=== PATIENT | female | born 1950 | race African-American/Black ===

== ENCOUNTER 2018-02-08 18:41 | Emergency (ER) | payer MEDICARE ==
[~2018-02-08] VITALS: Ht 170.2 cm; Wt 106.0 kg
[~2018-02-08 18:41] MED LIST: BENA40TA3 MT; CALCIUM PO; CLON0.1T PO; HYDR25TA PO; HYDR50TA54 PO; IRON PO; LANTUSUD SUBCUT; METO1TAB41 PO; NASOI BOTHNSTRLS; NIFE90TA2 PO; POTASSIUM
[2018-02-08 20:05] VITALS: BP 148/70
== END 2018-02-08 23:05 | disposition left against medical advice (07) ==
LOC: ER 23:05
DX: R51 Headache (principal); E11.9 Type 2 diabetes mellitus without complications; I10 Essential (primary) hypertension; Z88.5 Allergy status to narcotic agent; Z90.710 Acquired absence of both cervix and uterus
CPT/HCPCS: 99281

== ENCOUNTER 2018-09-16 15:19 | Inpatient (IN) | payer MEDICARE ==
[~2018-09-16] VITALS: Ht 170.2 cm; Wt 110.2 kg
[~2018-09-16 15:19] MED LIST changes: -BENA40TA3 MT; +BENA40TA9 MT
[2018-09-16] MEDS ORDERED: ALBUTEROL (0.083%) 2.5MG/3ML NEB HHN STA (16:26)
[2018-09-16 17:01] LABS: BASOPHILS % 0.3 % (0.0-2.0); CHLORIDE 96 mEq/L (98-107); HEMATOCRIT. 31.9 % (36.0-48.0); HEMOGLOBIN. 10.9 g/dL (12.0-16.0); LYMPHOCYTES % 10.6 % (20.0-50.0); MEAN CORPUSCULAR HEMOGLOBIN 32.4 pg (28.0-32.0); MEAN CORPUSCULAR VOLUME 95.2 fL (81.0-99.0); MEAN PLATELET VOLUME 9.2 fl (7.4-10.4); MONOCYTES % 8.3 % (2.0-8.0); NEUTROPHILS % 79.8 % (40.0-76.0); PLATELET 215 x1000/uL (130-400); RED BLOOD CELL COUNT 3.35 mill/uL (4.2-5.4); RED CELL DISTRIBUTION WIDTH 14.6 % (11.6-14.6)
[2018-09-16 17:12] LABS: INR 1.1; PARTIAL THROMBOPLASTIN TIME 29.1 sec (23.4-31.0); PROTHROMBIN TIME 10.9 sec (9.1-11.1)
[2018-09-16] MEDS ORDERED: KCL 10MEQ/50ML PREMIX 50 ML IV ONE (17:30)
[2018-09-16] MEDS ORDERED: POTASSIUM CHLORIDE 20MEQ TABLET SR PO ONE (17:30)
[2018-09-17 01:16] VITALS: BP 118/77
[2018-09-17 01:20] VITALS: BP 118/77
[2018-09-17 04:00] VITALS: BP 146/63
[2018-09-17] MEDS ORDERED: ACETAMINOPHEN 325MG TABLET PO PRN (05:45)
[2018-09-17] MEDS ORDERED: NIFEDIPINE XL 90MG TAB PO SCH ×2 (05:45→06:00)
[2018-09-17] MEDS ORDERED: ENOXAPARIN 40MG/0.4ML SYR SUBCUT SCH (05:45)
[2018-09-17] MEDS ORDERED: DOCUSATE SODIUM 100MG CAPSULE PO PRN (05:45)
[2018-09-17] MEDS ORDERED: SODIUM CHLORIDE 0.9% INJ 3ML FLUSH IVF SCH (06:00)
[2018-09-17] MEDS ORDERED: METOPROLOL TARTRATE 100MG TABLET PO SCH (06:00)
[2018-09-17] MEDS ORDERED: POTASSIUM CHLORIDE 20MEQ TABLET SR PO SCH ×2 (06:00→10:00)
[2018-09-17 07:08] LABS: BASOPHILS % 0.2 % (0.0-2.0); HEMATOCRIT. 31.5 % (36.0-48.0); HEMOGLOBIN. 10.7 g/dL (12.0-16.0); LYMPHOCYTES % 12.3 % (20.0-50.0); MEAN CORPUSCULAR HEMOGLOBIN 32.4 pg (28.0-32.0); MEAN CORPUSCULAR VOLUME 95.3 fL (81.0-99.0); MONOCYTES % 10.7 % (2.0-8.0); NEUTROPHILS % 74.8 % (40.0-76.0); PLATELET 215 x1000/uL (130-400); RED CELL DISTRIBUTION WIDTH 14.7 % (11.6-14.6)
[2018-09-17 08:00] VITALS: BP 106/53
[2018-09-17] MEDS ORDERED: LEVO50TA MT (08:13)
[2018-09-17 08:45] LABS: CHLORIDE 100 mEq/L (98-107)
[2018-09-17 08:51] LABS: TOTAL IRON BINDING CAPACITY 258 ug/dL (250-450)
[2018-09-17] MEDS ORDERED: BENAZEPRIL 10MG TABLET PO SCH (09:00)
[2018-09-17] MEDS ORDERED: ENOXAPARIN 30MG/0.3ML SYR SUBCUT SCH (09:00)
[2018-09-17] MEDS ORDERED: AZITHROMYCIN 500 MG TABLET PO SCH (09:00)
[2018-09-17 09:57] LABS: FOLIC ACID (FOLATE) SERUM >20 ng/mL ng/mL (>5.38)
[2018-09-17 10:08] LABS: VITAMIN B12 SERUM 686 pg/mL (211-911)
[2018-09-17 11:01] VITALS: BP 106/53
[2018-09-17] MEDS ORDERED: INSULIN GLARGINE UD 100 UNITS/ML SYR SUBCUT SCH (21:00)
[2018-09-19 14:09] LABS: FERRITIN 851 ng/mL (10-291)
== END 2018-09-17 11:50 | disposition home or self-care (01) | DRG 202 ==
LOC: ER 15:19 → 8WST 17:34
PROVIDERS: ADMIT Internal Medicine; ATTEND Internal Medicine
DX: J20.9 Acute bronchitis, unspecified (principal); J18.0 Bronchopneumonia, unspecified organism; E11.9 Type 2 diabetes mellitus without complications; E83.42 Hypomagnesemia; E87.6 Hypokalemia; I10 Essential (primary) hypertension; Z79.4 Long term (current) use of insulin; Z90.710 Acquired absence of both cervix and uterus; Z79.84 Long term (current) use of oral hypoglycemic drugs; Z88.5 Allergy status to narcotic agent
CPT/HCPCS: 36415; 71045; 80048; 82607; 82728; 82746; 82962; 83540; 83550; 83735; 83880; 84443; 84484; 87804; 93005; 94640; 96374; 99285; J1650; J1815; J3480; J7611

== ENCOUNTER 2019-06-23 03:59 | Emergency (ER) | payer MEDICARE ==
[~2019-06-23] VITALS: Ht 170.2 cm; Wt 108.0 kg
[~2019-06-23 03:59] MED LIST changes: +LEVO50TA MT
[2019-06-23 05:34] LABS: CHLORIDE 105 mEq/L (98-107)
[2019-06-23 05:37] LABS: BASOPHILS % 0.4 % (0.0-2.0); EOSINOPHILS % 3.1 % (0.0-5.0); HEMATOCRIT. 31.5 % (36.0-48.0); HEMOGLOBIN. 10.4 g/dL (12.0-16.0); LYMPHOCYTES % 13.2 % (20.0-50.0); MEAN CORPUSCULAR HEMOGLOBIN 31.4 pg (28.0-32.0); MEAN CORPUSCULAR VOLUME 95.1 fL (81.0-99.0); MEAN PLATELET VOLUME 8.2 fl (7.4-10.4); NEUTROPHILS % 75.3 % (40.0-76.0); PLATELET 238 x1000/uL (130-400); RED BLOOD CELL COUNT 3.32 mill/uL (4.2-5.4); RED CELL DISTRIBUTION WIDTH 15.8 % (11.6-14.6)
[2019-06-23] MEDS ORDERED: AZITHROMYCIN 500 MG in DEXT 5% WATER 250 ML IV SCH (07:15)
[2019-06-23] MEDS ORDERED: CEFTRIAXONE 2 G PREMIX 50 ML IV ONE (07:15)
[2019-06-23 07:27] VITALS: BP 175/80
[2019-06-23] MEDS ORDERED: POTASSIUM CHLORIDE 20MEQ TABLET SR PO ONE (07:45)
== END 2019-06-23 10:07 | disposition home or self-care (01) ==
LOC: ER 03:59
DX: J18.9 Pneumonia, unspecified organism (principal); E11.9 Type 2 diabetes mellitus without complications; I10 Essential (primary) hypertension; Z98.890 Other specified postprocedural states; Z79.4 Long term (current) use of insulin; Z88.5 Allergy status to narcotic agent
CPT/HCPCS: 36415; 71045; 80053; 85025; 96365; 96375; 99284; J0456; J0696; J7060

== ENCOUNTER 2019-06-24 14:02 | Emergency (ER) | payer MEDICARE ==
[~2019-06-24] VITALS: Ht 170.2 cm; Wt 106.0 kg
[2019-06-24] MEDS ORDERED: LACTATED RINGERS 1,000 ML IV STA (15:16)
[2019-06-24 15:28] LABS: BASOPHILS % 0.9 % (0.0-2.0); EOSINOPHILS % 2.3 % (0.0-5.0); HEMATOCRIT. 34.6 % (36.0-48.0); HEMOGLOBIN. 11.7 g/dL (12.0-16.0); LYMPHOCYTES % 18.3 % (20.0-50.0); MEAN CORPUSCULAR HEMOGLOBIN 31.5 pg (28.0-32.0); MEAN CORPUSCULAR VOLUME 93.2 fL (81.0-99.0); MEAN PLATELET VOLUME 8.2 fl (7.4-10.4); MONOCYTES % 9.7 % (2.0-8.0); NEUTROPHILS % 68.8 % (40.0-76.0); PLATELET 254 x1000/uL (130-400); RED BLOOD CELL COUNT 3.71 mill/uL (4.2-5.4); RED CELL DISTRIBUTION WIDTH 15.8 % (11.6-14.6)
[2019-06-24 15:32] LABS: CHLORIDE 101 mEq/L (98-107)
[2019-06-24] MEDS ORDERED: AMOXICILLIN/POTASSIUM CLAVULANATE 875/125MG TAB PO ONE (15:45)
[2019-06-24 17:56] VITALS: BP 150/65
== END 2019-06-24 17:58 | disposition home or self-care (01) ==
LOC: ER 14:21
DX: J18.9 Pneumonia, unspecified organism (principal); R55 Syncope and collapse; I10 Essential (primary) hypertension; E11.9 Type 2 diabetes mellitus without complications; Z88.5 Allergy status to narcotic agent; Z98.890 Other specified postprocedural states; Z79.899 Other long term (current) drug therapy
CPT/HCPCS: 36415; 71045; 80053; 82962; 83605; 83880; 84484; 85025; 93005; 96360; 99284; J7120

== ENCOUNTER 2019-07-02 09:30 | Emergency (ER) | payer MEDICARE ==
[~2019-07-02] VITALS: Ht 170.2 cm; Wt 107.0 kg
[2019-07-02] MEDS ORDERED: SODIUM CHLORIDE 0.9% 1,000 ML IV ONE (10:09)
[2019-07-02] MEDS ORDERED: ACETAMINOPHEN 325MG TABLET PO STA (10:09)
[2019-07-02 10:58] LABS: BASOPHILS % 0.5 % (0.0-2.0); EOSINOPHILS % 3.4 % (0.0-5.0); HEMATOCRIT. 33.8 % (36.0-48.0); HEMOGLOBIN. 11.2 g/dL (12.0-16.0); LYMPHOCYTES % 16.1 % (20.0-50.0); MEAN CORPUSCULAR HEMOGLOBIN 31.2 pg (28.0-32.0); MEAN CORPUSCULAR VOLUME 93.9 fL (81.0-99.0); MEAN PLATELET VOLUME 8.6 fl (7.4-10.4); MONOCYTES % 6.9 % (2.0-8.0); NEUTROPHILS % 73.1 % (40.0-76.0); PLATELET 240 x1000/uL (130-400)
[2019-07-02 11:03] LABS: CHLORIDE 100 mEq/L (98-107)
[2019-07-02] MEDS ORDERED: POTASSIUM CHLORIDE 20MEQ TABLET SR PO ONE (14:15)
[2019-07-02 14:48] VITALS: BP 128/86
== END 2019-07-02 14:49 | disposition home or self-care (01) ==
LOC: ER 09:30
DX: J18.9 Pneumonia, unspecified organism (principal); R05 Cough; E11.9 Type 2 diabetes mellitus without complications; I10 Essential (primary) hypertension; Z88.5 Allergy status to narcotic agent; Z79.4 Long term (current) use of insulin
CPT/HCPCS: 36415; 71045; 80053; 83880; 84484; 85025; 87804; 93005; 99284; J7030

== ENCOUNTER 2019-07-24 06:05 | Emergency (ER) | payer MEDICARE ==
[~2019-07-24] VITALS: Ht 170.2 cm; Wt 106.0 kg
[2019-07-24] MEDS ORDERED: KETOROLAC 30MG/ML VIAL IV STA (07:05)
[2019-07-24] MEDS ORDERED: SODIUM CHLORIDE 0.9% 1,000 ML IV ONE (07:05)
[2019-07-24 07:36] LABS: BASOPHILS % 0.6 % (0.0-2.0); EOSINOPHILS % 2.9 % (0.0-5.0); HEMATOCRIT. 33.4 % (36.0-48.0); HEMOGLOBIN. 11.1 g/dL (12.0-16.0); LYMPHOCYTES % 15.7 % (20.0-50.0); MEAN CORPUSCULAR HEMOGLOBIN 31.1 pg (28.0-32.0); MEAN CORPUSCULAR VOLUME 93.3 fL (81.0-99.0); MEAN PLATELET VOLUME 8.7 fl (7.4-10.4); MONOCYTES % 7.9 % (2.0-8.0); NEUTROPHILS % 72.9 % (40.0-76.0); PLATELET 228 x1000/uL (130-400); RED BLOOD CELL COUNT 3.58 mill/uL (4.2-5.4); RED CELL DISTRIBUTION WIDTH 15.8 % (11.6-14.6)
[2019-07-24 07:39] LABS: CHLORIDE 105 mEq/L (98-107)
[2019-07-24 08:45] VITALS: BP 158/74
== END 2019-07-24 08:47 | disposition home or self-care (01) ==
LOC: ER 06:05
DX: B34.9 Viral infection, unspecified (principal); R91.8 Other nonspecific abnormal finding of lung field; M79.18 Myalgia, other site; E11.9 Type 2 diabetes mellitus without complications; I10 Essential (primary) hypertension; Z79.4 Long term (current) use of insulin; Z79.899 Other long term (current) drug therapy; Z88.5 Allergy status to narcotic agent
CPT/HCPCS: 36415; 71045; 80053; 82962; 85025; 87070; 87430; 87804; 96374; 99284; J1885; J7030

== ENCOUNTER 2019-08-05 04:44 | Emergency (ER) | payer MEDICARE ==
[~2019-08-05] VITALS: Ht 170.2 cm; Wt 108.0 kg
[2019-08-05 06:31] LABS: CHLORIDE 103 mEq/L (98-107)
[2019-08-05 06:32] LABS: BASOPHILS % 1.5 % (0.0-2.0); EOSINOPHILS % 4.6 % (0.0-5.0); HEMATOCRIT. 36.3 % (36.0-48.0); HEMOGLOBIN. 12.2 g/dL (12.0-16.0); LYMPHOCYTES % 16.9 % (20.0-50.0); MEAN CORPUSCULAR HEMOGLOBIN 31.6 pg (28.0-32.0); MEAN PLATELET VOLUME 8.6 fl (7.4-10.4); MONOCYTES % 7.2 % (2.0-8.0); NEUTROPHILS % 69.8 % (40.0-76.0); PLATELET 240 x1000/uL (130-400); RED BLOOD CELL COUNT 3.86 mill/uL (4.2-5.4); RED CELL DISTRIBUTION WIDTH 15.8 % (11.6-14.6)
[2019-08-05 06:35] LABS: PARTIAL THROMBOPLASTIN TIME 24.2 sec (23.4-31.0); PROTHROMBIN TIME 10.2 sec (9.6-11.0)
[2019-08-05] MEDS ORDERED: ONDANSETRON HCL 4MG/2ML INJ IV STA (06:51)
[2019-08-05] MEDS ORDERED: NITROGLYCERIN OINT 1GM/INCH UDPKT TD ONE (07:00)
[2019-08-05] MEDS ORDERED: TRAMADOL 50MG TABLET PO ONE (07:00)
[2019-08-05] MEDS ORDERED: ASPIRIN 81MG TABLET PO ONE (07:00)
[2019-08-05] MEDS ORDERED: MORPHINE SULFATE 2 MG/ML CPJ (NOT FOR IM USE) IV ONE (07:15)
[2019-08-05] MEDS ORDERED: ONDANSETRON HCL 4MG/2ML INJ IV PRN (10:00)
[2019-08-05] MEDS ORDERED: CLONIDINE 0.1MG TABLET PO PRN (10:00)
[2019-08-05] MEDS ORDERED: IPRATROPIUM/ALBUTEROL 0.5-3(2.5)MG/3ML NEB HHN PRN (10:00)
[2019-08-05] MEDS ORDERED: BUDESONIDE 0.5MG/2ML NEB HHN SCH (10:00)
[2019-08-05] MEDS ORDERED: ACETAMINOPHEN 325MG TABLET PO PRN (10:00)
[2019-08-05] MEDS ORDERED: TRAMADOL 50MG TABLET PO PRN (10:00)
[2019-08-05] MEDS ORDERED: POTASSIUM CHLORIDE 20MEQ TABLET SR PO ONE (10:00)
[2019-08-05] MEDS ORDERED: DEXTROSE 50% WATER 50ML SYRINGE IV PRN (10:00)
[2019-08-05 12:42] VITALS: BP 138/58
[2019-08-05] MEDS ORDERED: BLOOD SUGAR DIAGNOSTIC STRIP TEST SCH (13:00)
[2019-08-05] MEDS ORDERED: INSULIN LISPRO 100 UNITS/ML SUBCUT SCH (13:20)
[2019-08-05] MEDS ORDERED: IOHEXOL-350 100 ML BOTTLE ONE (13:38)
== END 2019-08-05 13:20 | disposition short-term general hospital (02) ==
LOC: ER 04:44 → EDBEDREQ 09:04 → EDBEDREQTM 09:04 → ER 13:20 → CANBEDREQ 15:18
DX: R07.89 Other chest pain (principal); R91.8 Other nonspecific abnormal finding of lung field; E11.9 Type 2 diabetes mellitus without complications; I10 Essential (primary) hypertension; Z88.5 Allergy status to narcotic agent; Z79.899 Other long term (current) drug therapy
CPT/HCPCS: 36415; 71045; 71275; 80053; 83880; 84484; 85025; 85610; 85730; 93005; 93970; 96374; 96375; 99285; J2270; J2405; Q9967

== ENCOUNTER 2020-05-21 02:44 | Inpatient (IN) | payer MEDICARE ==
[~2020-05-21] VITALS: Ht 170.2 cm; Wt 113.4 kg
[2020-05-21] MEDS ORDERED: NITROGLYCERIN OINT 1GM/INCH UDPKT TD ONE (03:30)
[2020-05-21] MEDS ORDERED: FUROSEMIDE 40MG/4ML VIAL IV ONE (03:30)
[2020-05-21] MEDS ORDERED: CEFTRIAXONE 1 G PREMIX 50 ML IV ONE (03:45)
[2020-05-21] MEDS ORDERED: AZITHROMYCIN 500 MG in DEXT 5% WATER 250 ML IV ONE (03:45)
[2020-05-21 03:53] LABS: BASOPHILS % 0.5 % (0.0-2.0); HEMATOCRIT. 33.4 % (36.0-48.0); HEMOGLOBIN. 10.9 g/dL (12.0-16.0); LYMPHOCYTES % 11.9 % (20.0-50.0); MEAN CORPUSCULAR HEMOGLOBIN 30.5 pg (28.0-32.0); MEAN CORPUSCULAR VOLUME 93.8 fL (81.0-99.0); MEAN PLATELET VOLUME 9.1 fl (7.4-10.4); MONOCYTES % 4.5 % (2.0-8.0); NEUTROPHILS % 80.1 % (40.0-76.0); PLATELET 222 x1000/uL (130-400); RED BLOOD CELL COUNT 3.56 mill/uL (4.2-5.4); RED CELL DISTRIBUTION WIDTH 16.5 % (11.6-14.6)
[2020-05-21 03:56] LABS: CHLORIDE 108 mEq/L (98-107)
[2020-05-21 03:58] LABS: PROTHROMBIN TIME 10.9 sec (9.6-11.0)
[2020-05-21 06:36] LABS: CLARITY URINE CLEAR (CLEAR); COLOR URINE YELLOW (YELLOW); KETONES URINE NEGATIVE (NEGATIVE); LEUKOCYTE ESTERASE URINE NEGATIVE (NEGATIVE); NITRITE URINE NEGATIVE (NEGATIVE); OCCULT BLOOD URINE NEGATIVE (NEGATIVE); PROTEIN URINE 2+ (NEGATIVE); SPECIFIC GRAVITY URINE 1.014 (1.005-1.030); UROBILINOGEN URINE 0.2 E.U./dL (0.2-1.0)
[2020-05-21] MEDS ORDERED: KCL 20MEQ/100ML PREMIX 100 ML IV ONE (09:00)
[2020-05-21] MEDS ORDERED: POTASSIUM CHLORIDE INJ 60 MEQ in DEXT 5% WATER 500 ML IV ONE (09:15)
[2020-05-21] MEDS ORDERED: POTASSIUM CHLORIDE INJ 60 MEQ in SODIUM CHLORIDE 0.9% 500 ML IV ONE (09:45)
[2020-05-21 10:05] VITALS: BP 168/83
[2020-05-21] MEDS ORDERED: GLIP5TAB12 PO (10:44)
[2020-05-21] MEDS ORDERED: BENA20TA10 PO (10:44)
[2020-05-21] MEDS ORDERED: DOCUSATE SODIUM 100MG CAPSULE PO PRN (11:00)
[2020-05-21] MEDS ORDERED: ONDANSETRON HCL 4MG/2ML INJ IV PRN (11:00)
[2020-05-21] MEDS ORDERED: HYDROCODONE/ACETAMINOPHEN 5/325MG TABLET PO PRN (11:00)
[2020-05-21] MEDS ORDERED: MAGNESIUM/ALUMINUM HYDROXIDE/SIMETHICONE 30ML UDC PO PRN (11:00)
[2020-05-21] MEDS ORDERED: ACETAMINOPHEN 650MG SUPP PR PRN (11:00)
[2020-05-21] MEDS ORDERED: CEFTRIAXONE 1 G PREMIX 50 ML IV SCH (11:00)
[2020-05-21] MEDS ORDERED: NA PHOS,M-B/NA PHOS,DI-BA ENEMA 118ML PR PRN (11:00)
[2020-05-21] MEDS ORDERED: ACETAMINOPHEN 325MG TABLET PO PRN (11:00)
[2020-05-21] MEDS ORDERED: GUAIFENESIN 200MG/10ML SUGAR FREE UDC PO PRN (11:00)
[2020-05-21] MEDS ORDERED: DEXTROSE 50% WATER 50ML SYRINGE IV PRN (11:00)
[2020-05-21] MEDS ORDERED: MORPHINE SULFATE 2 MG/ML CPJ (NOT FOR IM USE) IV PRN (11:00)
[2020-05-21] MEDS ORDERED: DIPHENHYDRAMINE 50MG/ML VIAL IV PRN (11:00)
[2020-05-21] MEDS ORDERED: ACETAMINOPHEN 650MG/20.3ML UDC GT PRN (11:00)
[2020-05-21] MEDS: BLOOD SUGAR DIAGNOSTIC STRIP TEST SCH ×3 (11:40→21:04)
[2020-05-21 12:00] VITALS: BP 159/74
[2020-05-21 12:04] LABS: BG BASE EXCESS 2.4 mmol/L (-2.0-2.0); BG CARBOXYHEMOGLOBIN 0.5 % (0.5-1.5); BG FRACTION INSPIRED OXYGEN 21; BG HCO3 ACT 26.9 mmol/L (22.0-26.0); BG OXYGEN SATURATION 89.9 % (92.0-98.5); BG OXYHEMOGLOBIN 89.5 % (94.0-97.0); BG PCO2 41.6 mmHg (35.0-45.0); BG PH 7.429 (7.350-7.450); BG PO2 57.3 mmHg (75.0-100.0); BG SAMPLE SITE RIGHT RADIAL; BG TOTAL HEMOGLOBIN 12.7 g/dL (12.0-18.0); BG VENT MODE ROOM AIR
[2020-05-21] MEDS: METHYLPREDNISOLONE SOD SUCC 40 MG/ML VIAL IV SCH ×2 (12:04→18:31)
[2020-05-21] MEDS: ENOXAPARIN 30MG/0.3ML SYR SUBCUT SCH ×2 (12:06→22:44)
[2020-05-21] MEDS: INSULIN LISPRO 100 UNITS/ML SUBCUT SCH ×3 (12:10→21:05)
[2020-05-21] MEDS: ALBUTEROL 6.7GM HFA INHALER ORI SCH (14:20)
[2020-05-21 15:46] LABS: *AMPHETAMINES SCREEN URINE NEGATIVE (NEGATIVE); *BARBITURATES SCREEN URINE NEGATIVE (NEGATIVE); *BENZODIAZEPINES SCREEN URINE PRESUMTIVE POSITIVE (NEGATIVE)
[2020-05-21 15:47] LABS: *COCAINE SCREEN URINE NEGATIVE (NEGATIVE); CANNABINOID URINE SCREEN NEGATIVE (NEGATIVE); METHADONE URINE SCREEN NEGATIVE (NEGATIVE); OPIATES URINE SCREEN NEGATIVE (NEGATIVE); PHENCYCLIDINE URINE SCREEN NEGATIVE (NEGATIVE)
[2020-05-21 16:00] VITALS: BP 162/76
[2020-05-21 17:14] LABS: CREATINE KINASE MB FRACTION 5.1 ng/mL (0.5-3.6)
[2020-05-21] MEDS: GLIPIZIDE 5MG TABLET PO SCH (18:28)
[2020-05-21] MEDS: CLONIDINE 0.1MG TABLET PO PRN (18:30)
[2020-05-21 20:00] VITALS: BP 143/72
[2020-05-21] MEDS: FAMOTIDINE 20MG TABLET PO SCH (21:03)
[2020-05-21] MEDS ORDERED: INSULIN GLARGINE UD 100 UNITS/ML SYR SUBCUT SCH (22:00)
[2020-05-22] VITALS: BP 125/52
[2020-05-22 00:29] LABS: CREATINE KINASE MB FRACTION 4.1 ng/mL (0.5-3.6)
[2020-05-22] MEDS: LORAZEPAM 0.5MG TABLET PO PRN ×2 (01:04→22:50)
[2020-05-22] MEDS: METHYLPREDNISOLONE SOD SUCC 40 MG/ML VIAL IV SCH ×3 (02:10→22:56)
[2020-05-22] MEDS: CEFTRIAXONE 1,000 MG in DEXTROSE 5% WATER 50 ML IV SCH (02:10)
[2020-05-22 04:00] VITALS: BP 125/64
[2020-05-22] MEDS: BLOOD SUGAR DIAGNOSTIC STRIP TEST SCH ×4 (06:29→21:53)
[2020-05-22] MEDS: GLIPIZIDE 5MG TABLET PO SCH ×2 (06:55→16:44)
[2020-05-22] MEDS: LEVOTHYROXINE SODIUM 50MCG TABLET PO SCH (06:55)
[2020-05-22] MEDS: INSULIN LISPRO 100 UNITS/ML SUBCUT SCH ×4 (06:57→21:50)
[2020-05-22 07:29] LABS: HEMATOCRIT. 32.6 % (36.0-48.0); HEMOGLOBIN. 10.8 g/dL (12.0-16.0); MEAN CORPUSCULAR HEMOGLOBIN 30.9 pg (28.0-32.0); MEAN CORPUSCULAR VOLUME 93.5 fL (81.0-99.0); MEAN PLATELET VOLUME 9.1 fl (7.4-10.4); PLATELET 210 x1000/uL (130-400); RED BLOOD CELL COUNT 3.49 mill/uL (4.2-5.4); RED CELL DISTRIBUTION WIDTH 16.5 % (11.6-14.6)
[2020-05-22 08:00] VITALS: BP 150/75
[2020-05-22 08:01] LABS: CHLORIDE 104 mEq/L (98-107)
[2020-05-22 08:16] LABS: HDL CHOLESTEROL 67 mg/dL (40-59); LDL CHOLESTEROL 73 mg/dL (5-100)
[2020-05-22 08:20] LABS: T4 FREE 0.85 ng/dL (0.76-1.46)
[2020-05-22] MEDS: ASPIRIN 81MG EC TABLET PO SCH (09:33)
[2020-05-22] MEDS: ENOXAPARIN 30MG/0.3ML SYR SUBCUT SCH (09:33)
[2020-05-22] MEDS: ALBUTEROL 6.7GM HFA INHALER ORI SCH ×2 (10:02→14:00)
[2020-05-22] MEDS: AZITHROMYCIN 250 MG in DEXT 5% WATER 250 ML IV SCH (11:04)
[2020-05-22 12:00] VITALS: BP 144/79
[2020-05-22] MEDS: METOPROLOL TARTRATE 25MG TABLET PO SCH ×2 (12:33→21:52)
[2020-05-22 15:26] LABS: PLATELET ESTIMATE NORMAL
[2020-05-22 16:00] VITALS: BP 129/55
[2020-05-22 20:00] VITALS: BP 155/74
[2020-05-22] MEDS ORDERED: ATORVASTATIN CALCIUM 40MG TABLET PO SCH (21:00)
[2020-05-22] MEDS: ENOXAPARIN 120MG/0.8ML SYR SUBCUT SCH (21:50)
[2020-05-22] MEDS: FAMOTIDINE 20MG TABLET PO SCH (21:52)
[2020-05-22] MEDS: INSULIN GLARGINE UD 100 UNITS/ML SYR SUBCUT SCH (22:45)
[2020-05-23] VITALS (8 sets, daily range): BP systolic 146–173; BP diastolic 63–99
[2020-05-23] MEDS: CEFTRIAXONE 1,000 MG in DEXTROSE 5% WATER 50 ML IV SCH (01:55)
[2020-05-23] MEDS: BLOOD SUGAR DIAGNOSTIC STRIP TEST SCH ×4 (05:52→21:00)
[2020-05-23] MEDS: GLIPIZIDE 5MG TABLET PO SCH ×2 (06:35→17:56)
[2020-05-23] MEDS: LEVOTHYROXINE SODIUM 50MCG TABLET PO SCH (06:35)
[2020-05-23] MEDS: INSULIN LISPRO 100 UNITS/ML SUBCUT SCH ×4 (06:36→21:00)
[2020-05-23 06:38] LABS: HEMATOCRIT 35.1 % (36.0-48.0); HEMOGLOBIN 11.6 g/dL (12.0-16.0); MEAN CORPUSCULAR HEMOGLOBIN 30.8 pg (28.0-32.0); MEAN CORPUSCULAR VOLUME 93.5 fL (81.0-99.0); PLATELET 242 x1000/uL (130-400); RED BLOOD CELL COUNT 3.76 mill/uL (4.2-5.4); RED CELL DISTRIBUTION WIDTH 16.5 % (11.6-14.6)
[2020-05-23] MEDS: AZITHROMYCIN 250 MG in DEXT 5% WATER 250 ML IV SCH (08:47)
[2020-05-23] MEDS: METOPROLOL TARTRATE 25MG TABLET PO SCH (08:47)
[2020-05-23] MEDS: ASPIRIN 81MG EC TABLET PO SCH (08:47)
[2020-05-23] MEDS: ENOXAPARIN 120MG/0.8ML SYR SUBCUT SCH ×2 (08:47→22:29)
[2020-05-23 09:34] LABS: CHLORIDE 103 mEq/L (98-107)
[2020-05-23] MEDS ORDERED: FENTANYL CITRATE/PF 50MCG/ML 5ML VIAL ONE (10:13)
[2020-05-23] MEDS ORDERED: MIDAZOLAM HCL 5 MG/5 ML VIAL ONE (10:13)
[2020-05-23] MEDS ORDERED: LIDOCAINE HCL 1% 20ML VIAL (Pyxis) INJ ONE (10:13)
[2020-05-23] MEDS ORDERED: IODIXANOL 320MG/ML 100 ML BOTTLE IV ONE (10:14)
[2020-05-23] MEDS ORDERED: VERAPAMIL HCL 2.5 MG/1 ML 2ML VIAL IV ONE (10:22)
[2020-05-23] MEDS: METHYLPREDNISOLONE SOD SUCC 40 MG/ML VIAL IV SCH ×2 (11:00→22:29)
[2020-05-23] MEDS ORDERED: ATROPINE SULFATE 1MG/10ML SYR IV PRN (12:30)
[2020-05-23] MEDS: LOSARTAN POTASSIUM 50 MG TABLET PO SCH (14:38)
[2020-05-23] MEDS ORDERED: P20 MT (15:54)
[2020-05-23] MEDS ORDERED: ALBU90AE INH (15:54)
[2020-05-23] MEDS ORDERED: METO-539 MT (15:54)
[2020-05-23] MEDS ORDERED: LOSA50TA3 MT (15:54)
[2020-05-23] MEDS ORDERED: ATOR10TA MT (15:54)
[2020-05-23] MEDS ORDERED: ASPI-1497 MT (15:54)
[2020-05-23] MEDS ORDERED: LEVO500T2 PO (15:54)
[2020-05-23] MEDS: CLONIDINE 0.1MG TABLET PO PRN (16:07)
[2020-05-23] MEDS ORDERED: IOHEXOL-350 100 ML BOTTLE ONE (16:14)
[2020-05-23] MEDS ORDERED: METOPROLOL TARTRATE 50MG TABLET PO NR (17:30)
[2020-05-23] MEDS ORDERED: ATORVASTATIN CALCIUM 10MG TABLET PO SCH (21:00)
[2020-05-23] MEDS: INSULIN GLARGINE UD 100 UNITS/ML SYR SUBCUT SCH (22:27)
[2020-05-23] MEDS: FAMOTIDINE 20MG TABLET PO SCH (22:29)
[2020-05-24] VITALS (9 sets, daily range): BP systolic 144–186; BP diastolic 71–91
[2020-05-24] MEDS: CLONIDINE 0.1MG TABLET PO PRN (02:10)
[2020-05-24] MEDS: CEFTRIAXONE 1,000 MG in DEXTROSE 5% WATER 50 ML IV SCH (02:24)
[2020-05-24] MEDS: LORAZEPAM 0.5MG TABLET PO PRN (04:13)
[2020-05-24 05:45] LABS: HEMATOCRIT. 33.4 % (36.0-48.0); HEMOGLOBIN. 11.2 g/dL (12.0-16.0); MEAN CORPUSCULAR VOLUME 92.7 fL (81.0-99.0); MEAN PLATELET VOLUME 9.2 fl (7.4-10.4); PLATELET 210 x1000/uL (130-400); RED CELL DISTRIBUTION WIDTH 15.9 % (11.6-14.6)
[2020-05-24 06:04] LABS: CHLORIDE 105 mEq/L (98-107)
[2020-05-24] MEDS: BLOOD SUGAR DIAGNOSTIC STRIP TEST SCH (06:38)
[2020-05-24] MEDS: INSULIN LISPRO 100 UNITS/ML SUBCUT SCH (06:46)
[2020-05-24] MEDS: LEVOTHYROXINE SODIUM 50MCG TABLET PO SCH (06:46)
[2020-05-24] MEDS: GLIPIZIDE 5MG TABLET PO SCH (06:46)
[2020-05-24] MEDS: ENOXAPARIN 120MG/0.8ML SYR SUBCUT SCH (07:55)
[2020-05-24] MEDS: LOSARTAN POTASSIUM 50 MG TABLET PO SCH (07:56)
[2020-05-24] MEDS ORDERED: POTASSIUM CHLORIDE 20MEQ TABLET SR PO SCH (09:00)
[2020-05-24] MEDS ORDERED: METOPROLOL TARTRATE 50MG TABLET PO SCH (09:00)
[2020-05-24] MEDS: AZITHROMYCIN 250 MG in DEXT 5% WATER 250 ML IV SCH (09:00)
[2020-05-24] MEDS ORDERED: AMLODIPINE 10MG TABLET PO SCH (10:00)
[2020-05-24] MEDS ORDERED: ALBUTEROL (0.083%) 2.5MG/3ML NEB HHN SCH (12:00)
[2020-05-24 13:31] LABS: PLATELET ESTIMATE NORMAL
== END 2020-05-24 11:30 | disposition home or self-care (01) | DRG 280 ==
LOC: ER 02:44 → 7EST 05:26 → EDBEDREQTM 05:34 → EDBEDREQ 05:34 → ENRESERV 07:27 → 8WST 23:03 → 3WST 05-23 13:24
PROVIDERS: ADMIT Internal Medicine; ATTEND Internal Medicine
PROC: B211YZZ Fluoroscopy of Multiple Coronary Arteries using Other Contrast (ICD-10-PCS; principal; 2020-05-23)
PROC: 4A023N7 Measurement of Cardiac Sampling and Pressure, Left Heart, Percutaneous Approach (ICD-10-PCS; 2020-05-23)
PROC: B215YZZ Fluoroscopy of Left Heart using Other Contrast (ICD-10-PCS; 2020-05-23)
DX: I21.4 Non-ST elevation (NSTEMI) myocardial infarction (principal); J18.9 Pneumonia, unspecified organism; J96.91 Respiratory failure, unspecified with hypoxia; N39.0 Urinary tract infection, site not specified; E87.2 Acidosis; E87.6 Hypokalemia; I16.0 Hypertensive urgency; E03.9 Hypothyroidism, unspecified; E66.9 Obesity, unspecified; I50.9 Heart failure, unspecified; D64.9 Anemia, unspecified; E11.65 Type 2 diabetes mellitus with hyperglycemia; I11.0 Hypertensive heart disease with heart failure; I25.10 Atherosclerotic heart disease of native coronary artery without angina pectoris; Z20.828 Contact with and (suspected) exposure to other viral communicable diseases; Z87.01 Personal history of pneumonia (recurrent); Z79.4 Long term (current) use of insulin; Z79.890 Hormone replacement therapy; Z79.899 Other long term (current) drug therapy; Z68.39 Body mass index [BMI] 39.0-39.9, adult; D49.1 Neoplasm of unspecified behavior of respiratory system; R59.0 Localized enlarged lymph nodes
CPT/HCPCS: 36415; 36600; 71045; 71275; 80048; 80053; 80061; 80305; 80346; 81003; 82375; 82550; 82553; 82805; 82962; 83036; 83605; 83880; 84132; 84145; 84439; 84443; 84484; 85025; 85027; 85379; 87635; 93005; 93306; 93458; 93970; 99291; C1769; C1887; C1893; J0456; J0696; J1644; J1650; J1815; J1940; J2250; J2920; J3010; J3480; J3490; J7040; J7060; Q9967

== ENCOUNTER 2020-08-13 15:01 | Emergency (ER) | payer MEDICARE ==
[~2020-08-13] VITALS: Ht 160 cm; Wt 60.0 kg
[~2020-08-13 15:01] MED LIST changes: +ALBU90AE INH; +ASPI-1497 MT; +ATOR10TA MT; -BENA40TA9 MT; -CLON0.1T PO; +GLIP5TAB12 PO; -HYDR25TA PO; -HYDR50TA54 PO; -IRON PO; +LEVO500T2 PO; +LOSA50TA3 MT; +METO-539 MT; -METO1TAB41 PO; -NASOI BOTHNSTRLS; -NIFE90TA2 PO; +P20 MT; -POTASSIUM
[2020-08-13 15:18] VITALS: BP 202/85
== END 2020-08-13 16:13 | disposition home or self-care (01) ==
LOC: ER 15:28
DX: R06.4 Hyperventilation (principal); I10 Essential (primary) hypertension; E78.00 Pure hypercholesterolemia, unspecified; E11.9 Type 2 diabetes mellitus without complications; Z88.5 Allergy status to narcotic agent
CPT/HCPCS: 93005; 99281

== ENCOUNTER 2020-11-08 22:48 | Inpatient (IN) | payer MEDICARE ==
[~2020-11-08] VITALS: Ht 170.2 cm; Wt 113.4 kg
[2020-11-08] MEDS ORDERED: PROPOFOL 10MG/ML 100ML 100 ML IV STA (23:05)
[2020-11-08] MEDS ORDERED: VANCOMYCIN 1 G PREMIX 200 ML IV ONE (23:15)
[2020-11-08] MEDS ORDERED: PIPERACILLIN/TAZ 3.375G PREMIX 50 ML IV ONE (23:15)
[2020-11-08] MEDS ORDERED: LEVETIRACETAM 500MG PREMIX 100 ML IV ONE (23:15)
[2020-11-08 23:52] LABS: BASOPHILS % 0.2 % (0.0-2.0); EOSINOPHILS % 3.8 % (0.0-5.0); HEMATOCRIT. 37.7 % (36.0-48.0); HEMOGLOBIN. 11.9 g/dL (12.0-16.0); LYMPHOCYTES % 35.2 % (20.0-50.0); MEAN CORPUSCULAR HEMOGLOBIN 31.2 pg (28.0-32.0); MEAN CORPUSCULAR VOLUME 99.4 fL (81.0-99.0); MEAN PLATELET VOLUME 9.5 fl (7.4-10.4); MONOCYTES % 7.2 % (2.0-8.0); NEUTROPHILS % 53.6 % (40.0-76.0); PLATELET 235 x1000/uL (130-400); RED CELL DISTRIBUTION WIDTH 17.1 % (11.6-14.6)
[2020-11-08 23:59] LABS: CHLORIDE 104 mEq/L (98-107)
[2020-11-09] VITALS (74 sets, daily range): BP systolic 99–184; BP diastolic 49–120
[2020-11-09 00:01] LABS: PARTIAL THROMBOPLASTIN TIME 25.5 sec (23.4-31.0); PROTHROMBIN TIME 10.9 sec (9.6-11.0)
[2020-11-09 00:03] LABS: ETHANOL BLOOD < 10 mg/dL
[2020-11-09 00:13] LABS: CARBAMAZEPINE < 0.5 ug/mL (4-12); PHENOBARBITAL < 2.1 ug/mL (15.0-40.0); VALPROIC ACID < 3.0 ug/mL (50-100)
[2020-11-09] MEDS ORDERED: METRONIDAZOLE 500 MG PREMIX 100 ML IV ONE (00:45)
[2020-11-09 01:11] LABS: CLARITY URINE CLOUDY (CLEAR); COLOR URINE YELLOW (YELLOW); KETONES URINE NEGATIVE (NEGATIVE); LEUKOCYTE ESTERASE URINE NEGATIVE (NEGATIVE); NITRITE URINE NEGATIVE (NEGATIVE); OCCULT BLOOD URINE 2+ (NEGATIVE); PROTEIN URINE 4+ (NEGATIVE); SPECIFIC GRAVITY URINE 1.018 (1.005-1.030); UROBILINOGEN URINE 0.2 E.U./dL (0.2-1.0)
[2020-11-09 01:33] LABS: *AMPHETAMINES SCREEN URINE NEGATIVE (NEGATIVE); *BARBITURATES SCREEN URINE NEGATIVE (NEGATIVE); *BENZODIAZEPINES SCREEN URINE NEGATIVE (NEGATIVE); METHADONE URINE SCREEN NEGATIVE (NEGATIVE); OPIATES URINE SCREEN NEGATIVE (NEGATIVE)
[2020-11-09 01:34] LABS: *COCAINE SCREEN URINE NEGATIVE (NEGATIVE); CANNABINOID URINE SCREEN NEGATIVE (NEGATIVE); PHENCYCLIDINE URINE SCREEN NEGATIVE (NEGATIVE)
[2020-11-09] MEDS ORDERED: DEXAMETHASONE 10 MG/ML VIAL IV ONE (02:30)
[2020-11-09] MEDS ORDERED: ASPIRIN 300MG SUPP PR ONE (02:30)
[2020-11-09] MEDS: PROPOFOL 10MG/ML 100ML 100 ML IV PRN ×6 (03:58→21:30)
[2020-11-09] MEDS ORDERED: IPRATROPIUM/ALBUTEROL 0.5-3(2.5)MG/3ML NEB HHN PRN (04:45)
[2020-11-09] MEDS ORDERED: DEXTROSE 50% WATER 50ML SYRINGE IV PRN (04:45)
[2020-11-09] MEDS: BLOOD SUGAR DIAGNOSTIC STRIP TEST SCH ×4 (05:43→23:12)
[2020-11-09] MEDS: SODIUM BICARBONATE 50 MEQ in DEXT 5%/0.45% NACL 1000ML 1,000 ML IV SCH ×2 (05:50→19:30)
[2020-11-09] MEDS: INSULIN LISPRO 100 UNITS/ML SUBCUT SCH ×4 (05:50→23:16)
[2020-11-09] MEDS: METHYLPREDNISOLONE SOD SUCC 40 MG/ML VIAL IV SCH ×3 (05:50→21:18)
[2020-11-09 05:51] LABS: HEMATOCRIT. 34.7 % (36.0-48.0); MEAN CORPUSCULAR VOLUME 94.5 fL (81.0-99.0); MEAN PLATELET VOLUME 9.2 fl (7.4-10.4); PLATELET 193 x1000/uL (130-400); RED BLOOD CELL COUNT 3.68 mill/uL (4.2-5.4); RED CELL DISTRIBUTION WIDTH 16.3 % (11.6-14.6)
[2020-11-09 05:54] LABS: BG BASE EXCESS -1.9 mmol/L (-2.0-2.0); BG CARBOXYHEMOGLOBIN 0.3 % (0.5-1.5); BG DEOXYHEMOGLOBIN 2.2 % (0.0-5.0); BG FRACTION INSPIRED OXYGEN 100; BG HCO3 ACT 23.6 mmol/L (22.0-26.0); BG METHEMOGLOBIN 0.2 % (0.0-1.5); BG OXYGEN SATURATION 97.8 % (92.0-98.5); BG OXYHEMOGLOBIN 97.3 % (94.0-97.0); BG PCO2 43.2 mmHg (35.0-45.0); BG PH 7.356 (7.350-7.450); BG SAMPLE SITE RIGHT RADIAL; BG TOTAL HEMOGLOBIN 12.2 g/dL (12.0-18.0); BG VENT MODE VENT - AC
[2020-11-09 05:56] LABS: CHLORIDE 108 mEq/L (98-107)
[2020-11-09 06:05] LABS: CREATINE KINASE 264 IU/L (26-192)
[2020-11-09 06:07] LABS: CREATINE KINASE MB FRACTION 4.6 ng/mL (0.5-3.6)
[2020-11-09 06:07] LABS: BG BASE EXCESS -16.3 mmol/L (-2.0-2.0); BG CARBOXYHEMOGLOBIN 0.3 % (0.5-1.5); BG DEOXYHEMOGLOBIN 15.9 % (0.0-5.0); BG FRACTION INSPIRED OXYGEN 100; BG HCO3 ACT 15.3 mmol/L (22.0-26.0); BG METHEMOGLOBIN 0.2 % (0.0-1.5); BG OXYHEMOGLOBIN 83.6 % (94.0-97.0); BG PCO2 62.2 mmHg (35.0-45.0); BG PH 7.008 (7.350-7.450); BG PO2 72.7 mmHg (75.0-100.0); BG TOTAL HEMOGLOBIN 13.5 g/dL (12.0-18.0); BG VENT MODE VENT - AC
[2020-11-09] MEDS ORDERED: BLOOD SUGAR DIAGNOSTIC STRIP TEST SCH (06:30)
[2020-11-09] MEDS ORDERED: INSULIN LISPRO 100 UNITS/ML SUBCUT SCH (07:00)
[2020-11-09] MEDS: IPRATROPIUM/ALBUTEROL 0.5-3(2.5)MG/3ML NEB HHN SCH ×4 (07:53→20:47)
[2020-11-09] MEDS ORDERED: CEFEPIME HCL 1000MG/VIAL INJ IM SCH (09:00)
[2020-11-09] MEDS: PANTOPRAZOLE SODIUM 40 MG/VIAL IV SCH (09:26)
[2020-11-09] MEDS: CEFEPIME 1,000 MG in DEXTROSE 5% WATER 50 ML IV SCH ×2 (09:26→21:17)
[2020-11-09] MEDS: AZITHROMYCIN 500 MG in DEXT 5% WATER 250 ML IV SCH (09:26)
[2020-11-09] MEDS: ENOXAPARIN 30MG/0.3ML SYR SUBCUT SCH ×2 (09:27→21:18)
[2020-11-09 11:53] LABS: PLATELET ESTIMATE NORMAL
[2020-11-09] MEDS: LOSARTAN POTASSIUM 50 MG TABLET PO SCH (16:16)
[2020-11-09] MEDS: METOPROLOL TARTRATE 50MG TABLET PO SCH (16:17)
[2020-11-09] MEDS: FUROSEMIDE 40MG/4ML VIAL IVP SCH (16:17)
[2020-11-09 16:30] LABS: CREATINE KINASE MB FRACTION 5.7 ng/mL (0.5-3.6)
[2020-11-09] MEDS ORDERED: FENTANYL CITRATE/PF 2,500 MCG in SODIUM CHLORIDE 0.9% 200 ML IV PRN (18:15)
[2020-11-09] MEDS: ATORVASTATIN CALCIUM 10MG TABLET PO SCH (21:17)
[2020-11-09] MEDS: INSULIN GLARGINE UD 100 UNITS/ML SYR SUBCUT SCH (21:47)
[2020-11-10] VITALS (74 sets, daily range): BP systolic 103–159; BP diastolic 44–72
[2020-11-10] MEDS: IPRATROPIUM/ALBUTEROL 0.5-3(2.5)MG/3ML NEB HHN SCH ×7 (00:02→20:19)
[2020-11-10 01:44] LABS: CREATINE KINASE MB FRACTION 3.8 ng/mL (0.5-3.6)
[2020-11-10] MEDS: PROPOFOL 10MG/ML 100ML 100 ML IV PRN ×5 (02:20→16:27)
[2020-11-10] MEDS ORDERED: PROPOFOL 10MG/ML 100ML 100 ML IV PRN (04:45)
[2020-11-10] MEDS: BLOOD SUGAR DIAGNOSTIC STRIP TEST SCH ×3 (05:27→18:09)
[2020-11-10] MEDS: METHYLPREDNISOLONE SOD SUCC 40 MG/ML VIAL IV SCH (05:31)
[2020-11-10] MEDS: INSULIN LISPRO 100 UNITS/ML SUBCUT SCH ×3 (05:32→18:11)
[2020-11-10 05:43] LABS: HEMATOCRIT. 29.8 % (36.0-48.0); HEMOGLOBIN. 9.6 g/dL (12.0-16.0); MEAN CORPUSCULAR HEMOGLOBIN 30.2 pg (28.0-32.0); MEAN CORPUSCULAR VOLUME 93.2 fL (81.0-99.0); MEAN PLATELET VOLUME 9.5 fl (7.4-10.4); PLATELET 177 x1000/uL (130-400)
[2020-11-10 06:01] LABS: CHLORIDE 106 mEq/L (98-107)
[2020-11-10 08:03] LABS: BG BASE EXCESS 2.3 mmol/L (-2.0-2.0); BG CARBOXYHEMOGLOBIN 0.3 % (0.5-1.5); BG DEOXYHEMOGLOBIN 1.7 % (0.0-5.0); BG FRACTION INSPIRED OXYGEN 80; BG HCO3 ACT 26.6 mmol/L (22.0-26.0); BG METHEMOGLOBIN 0.3 % (0.0-1.5); BG OXYGEN SATURATION 98.3 % (92.0-98.5); BG OXYHEMOGLOBIN 97.7 % (94.0-97.0); BG PCO2 40.2 mmHg (35.0-45.0); BG PH 7.439 (7.350-7.450); BG SAMPLE SITE RIGHT RADIAL; BG TOTAL HEMOGLOBIN 9.3 g/dL (12.0-18.0); BG VENT MODE VENT - AC
[2020-11-10] MEDS: AZITHROMYCIN 500 MG in DEXT 5% WATER 250 ML IV SCH (08:18)
[2020-11-10] MEDS: CEFEPIME 1,000 MG in DEXTROSE 5% WATER 50 ML IV SCH ×2 (09:37→21:09)
[2020-11-10] MEDS: FUROSEMIDE 40MG/4ML VIAL IVP SCH (09:37)
[2020-11-10] MEDS: PANTOPRAZOLE SODIUM 40 MG/VIAL IV SCH (09:37)
[2020-11-10] MEDS: ASPIRIN 81MG EC TABLET PO SCH (09:37)
[2020-11-10] MEDS: METOPROLOL TARTRATE 50MG TABLET PO SCH ×2 (09:38→21:00)
[2020-11-10] MEDS: LOSARTAN POTASSIUM 50 MG TABLET PO SCH (09:38)
[2020-11-10] MEDS: LEVOTHYROXINE SODIUM 50MCG TABLET PO SCH (09:38)
[2020-11-10] MEDS: ENOXAPARIN 30MG/0.3ML SYR SUBCUT SCH (09:39)
[2020-11-10] MEDS: SODIUM BICARBONATE 50 MEQ in DEXT 5%/0.45% NACL 1000ML 1,000 ML IV SCH (10:17)
[2020-11-10] MEDS ORDERED: POTASSIUM CHLORIDE 20MEQ TABLET SR PO SCH (11:00)
[2020-11-10 11:32] LABS: PLATELET ESTIMATE NORMAL
[2020-11-10] MEDS: MIDAZOLAM HCL 100 MG in SODIUM CHLORIDE 0.9% 80 ML IV PRN (17:21)
[2020-11-10] MEDS: ENOXAPARIN 40MG/0.4ML SYR SUBCUT SCH (21:09)
[2020-11-10] MEDS: ATORVASTATIN CALCIUM 10MG TABLET PO SCH (21:09)
[2020-11-10] MEDS: INSULIN GLARGINE UD 100 UNITS/ML SYR SUBCUT SCH (21:12)
[2020-11-11] VITALS (76 sets, daily range): BP systolic 107–181; BP diastolic 47–124
[2020-11-11] MEDS: IPRATROPIUM/ALBUTEROL 0.5-3(2.5)MG/3ML NEB HHN SCH ×6 (00:15→20:49)
[2020-11-11] MEDS: BLOOD SUGAR DIAGNOSTIC STRIP TEST SCH ×4 (00:31→17:44)
[2020-11-11] MEDS: INSULIN LISPRO 100 UNITS/ML SUBCUT SCH ×4 (00:35→17:44)
[2020-11-11] MEDS: MIDAZOLAM HCL 100 MG in SODIUM CHLORIDE 0.9% 80 ML IV PRN (02:08)
[2020-11-11] MEDS: METHYLPREDNISOLONE SOD SUCC 40 MG/ML VIAL IV SCH ×2 (03:16→13:46)
[2020-11-11 05:57] LABS: HEMATOCRIT. 30.2 % (36.0-48.0); HEMOGLOBIN. 9.7 g/dL (12.0-16.0); MEAN CORPUSCULAR HEMOGLOBIN 30.2 pg (28.0-32.0); MEAN CORPUSCULAR VOLUME 93.7 fL (81.0-99.0); MEAN PLATELET VOLUME 9.8 fl (7.4-10.4); PLATELET 190 x1000/uL (130-400); RED BLOOD CELL COUNT 3.23 mill/uL (4.2-5.4); RED CELL DISTRIBUTION WIDTH 16.2 % (11.6-14.6)
[2020-11-11] MEDS: AZITHROMYCIN 500 MG in DEXT 5% WATER 250 ML IV SCH (08:09)
[2020-11-11] MEDS: PANTOPRAZOLE SODIUM 40 MG/VIAL IV SCH (09:02)
[2020-11-11] MEDS: FUROSEMIDE 40MG/4ML VIAL IVP SCH (09:02)
[2020-11-11] MEDS: CEFEPIME 1,000 MG in DEXTROSE 5% WATER 50 ML IV SCH ×2 (09:02→21:48)
[2020-11-11] MEDS: ASPIRIN 81MG EC TABLET PO SCH (09:03)
[2020-11-11] MEDS: METOPROLOL TARTRATE 50MG TABLET PO SCH ×2 (09:03→21:53)
[2020-11-11] MEDS: ENOXAPARIN 40MG/0.4ML SYR SUBCUT SCH ×2 (09:03→21:52)
[2020-11-11] MEDS: LOSARTAN POTASSIUM 50 MG TABLET PO SCH ×2 (09:03→17:38)
[2020-11-11] MEDS: LEVOTHYROXINE SODIUM 50MCG TABLET PO SCH (09:03)
[2020-11-11 10:06] LABS: BG BASE EXCESS 2.1 mmol/L (-2.0-2.0); BG CARBOXYHEMOGLOBIN 0.2 % (0.5-1.5); BG DEOXYHEMOGLOBIN 3.2 % (0.0-5.0); BG FRACTION INSPIRED OXYGEN 40; BG HCO3 ACT 27.1 mmol/L (22.0-26.0); BG METHEMOGLOBIN 0.2 % (0.0-1.5); BG OXYGEN SATURATION 96.8 % (92.0-98.5); BG OXYHEMOGLOBIN 96.4 % (94.0-97.0); BG PCO2 44.1 mmHg (35.0-45.0); BG PH 7.407 (7.350-7.450); BG PO2 91.4 mmHg (75.0-100.0); BG SAMPLE SITE RIGHT RADIAL; BG TOTAL HEMOGLOBIN 10.2 g/dL (12.0-18.0); BG VENT MODE VENT - CPAP
[2020-11-11 11:49] LABS: PLATELET ESTIMATE NORMAL
[2020-11-11] MEDS ORDERED: LIDOCAINE HCL 1% 20ML VIAL (Pyxis) INJ ONE ×2 (14:14→14:40)
[2020-11-11 18:10] LABS: BG BASE EXCESS 4.7 mmol/L (-2.0-2.0); BG CARBOXYHEMOGLOBIN 0.2 % (0.5-1.5); BG DEOXYHEMOGLOBIN 4.8 % (0.0-5.0); BG FRACTION INSPIRED OXYGEN 40; BG HCO3 ACT 29.1 mmol/L (22.0-26.0); BG METHEMOGLOBIN 0.3 % (0.0-1.5); BG OXYGEN SATURATION 95.2 % (92.0-98.5); BG OXYHEMOGLOBIN 94.7 % (94.0-97.0); BG PCO2 42.8 mmHg (35.0-45.0); BG PH 7.451 (7.350-7.450); BG PO2 76.3 mmHg (75.0-100.0); BG SAMPLE SITE RIGHT RADIAL; BG TOTAL HEMOGLOBIN 12.6 g/dL (12.0-18.0); BG VENT MODE COOL AEROSOL
[2020-11-11] MEDS: ATORVASTATIN CALCIUM 10MG TABLET PO SCH (21:52)
[2020-11-11] MEDS: INSULIN GLARGINE UD 100 UNITS/ML SYR SUBCUT SCH (21:55)
[2020-11-12] VITALS (34 sets, daily range): BP systolic 108–203; BP diastolic 38–123
[2020-11-12] MEDS: IPRATROPIUM/ALBUTEROL 0.5-3(2.5)MG/3ML NEB HHN SCH ×6 (00:31→20:27)
[2020-11-12] MEDS: HYDRALAZINE 20MG/ML VIAL IV PRN ×2 (01:26→10:04)
[2020-11-12] MEDS: METHYLPREDNISOLONE SOD SUCC 40 MG/ML VIAL IV SCH (01:26)
[2020-11-12] MEDS: INSULIN LISPRO 100 UNITS/ML SUBCUT SCH ×5 (01:33→21:39)
[2020-11-12 05:49] LABS: HEMOGLOBIN. 10.6 g/dL (12.0-16.0); MEAN CORPUSCULAR HEMOGLOBIN 30.4 pg (28.0-32.0); MEAN CORPUSCULAR VOLUME 94.4 fL (81.0-99.0); MEAN PLATELET VOLUME 9.7 fl (7.4-10.4); PLATELET 186 x1000/uL (130-400); RED BLOOD CELL COUNT 3.49 mill/uL (4.2-5.4); RED CELL DISTRIBUTION WIDTH 16.3 % (11.6-14.6)
[2020-11-12 05:57] LABS: CHLORIDE 106 mEq/L (98-107)
[2020-11-12] MEDS: BLOOD SUGAR DIAGNOSTIC STRIP TEST SCH ×5 (06:47→21:00)
[2020-11-12 08:29] LABS: BG BASE EXCESS 3.5 mmol/L (-2.0-2.0); BG CARBOXYHEMOGLOBIN 0.3 % (0.5-1.5); BG FRACTION INSPIRED OXYGEN 36; BG HCO3 ACT 26.5 mmol/L (22.0-26.0); BG METHEMOGLOBIN 0.2 % (0.0-1.5); BG OXYHEMOGLOBIN 97.5 % (94.0-97.0); BG PCO2 34.4 mmHg (35.0-45.0); BG PH 7.505 (7.350-7.450); BG PO2 106.8 mmHg (75.0-100.0); BG SAMPLE SITE RIGHT RADIAL; BG TOTAL HEMOGLOBIN 10.9 g/dL (12.0-18.0); BG VENT MODE NASAL CANNULA
[2020-11-12] MEDS: ASPIRIN 81MG EC TABLET PO SCH (09:26)
[2020-11-12] MEDS: LOSARTAN POTASSIUM 50 MG TABLET PO SCH ×2 (09:26→17:33)
[2020-11-12] MEDS: PANTOPRAZOLE SODIUM 40 MG/VIAL IV SCH (09:26)
[2020-11-12] MEDS: ENOXAPARIN 40MG/0.4ML SYR SUBCUT SCH (09:26)
[2020-11-12] MEDS: FUROSEMIDE 40MG/4ML VIAL IVP SCH (09:26)
[2020-11-12] MEDS: METOPROLOL TARTRATE 50MG TABLET PO SCH ×2 (09:26→21:43)
[2020-11-12] MEDS: CEFEPIME 1,000 MG in DEXTROSE 5% WATER 50 ML IV SCH ×2 (09:27→23:18)
[2020-11-12] MEDS: AZITHROMYCIN 500 MG in DEXT 5% WATER 250 ML IV SCH (09:27)
[2020-11-12] MEDS: LEVOTHYROXINE SODIUM 50MCG TABLET PO SCH (09:27)
[2020-11-12] MEDS ORDERED: POTASSIUM CHLORIDE 20MEQ/PACKET PO NR (10:00)
[2020-11-12] MEDS ORDERED: ACETAMINOPHEN 325MG TABLET PO PRN (10:00)
[2020-11-12 10:44] LABS: PLATELET ESTIMATE NORMAL
[2020-11-12] MEDS ORDERED: AMLODIPINE 5MG TABLET PO NR (10:45)
[2020-11-12] MEDS ORDERED: LACTULOSE 20G/30ML UDC PO PRN (12:00)
[2020-11-12] MEDS ORDERED: SODIUM CHLORIDE 45ML SPRAY NS PRN (15:45)
[2020-11-12] MEDS ORDERED: THROAT LOZENGES-BENZOCAINE/MENTH/CETYLPYRD CL LOZENGES MM PRN (15:45)
[2020-11-12] MEDS: DOCUSATE SODIUM 100MG CAPSULE PO SCH (17:33)
[2020-11-12] MEDS: AMLODIPINE 5MG TABLET PO SCH (21:42)
[2020-11-12] MEDS: ENOXAPARIN 30MG/0.3ML SYR SUBCUT SCH (21:44)
[2020-11-12] MEDS: ATORVASTATIN CALCIUM 10MG TABLET PO SCH (21:44)
[2020-11-12] MEDS: INSULIN GLARGINE UD 100 UNITS/ML SYR SUBCUT SCH (23:33)
[2020-11-13] VITALS: BP 143/71
[2020-11-13] MEDS: IPRATROPIUM/ALBUTEROL 0.5-3(2.5)MG/3ML NEB HHN SCH ×5 (01:11→17:12)
[2020-11-13 04:00] VITALS: BP 173/82
[2020-11-13] MEDS: BLOOD SUGAR DIAGNOSTIC STRIP TEST SCH ×3 (06:14→17:03)
[2020-11-13 07:02] LABS: BASOPHILS % 0.2 % (0.0-2.0); EOSINOPHILS % 0.9 % (0.0-5.0); HEMATOCRIT. 30.1 % (36.0-48.0); HEMOGLOBIN. 10.1 g/dL (12.0-16.0); MEAN CORPUSCULAR HEMOGLOBIN 31.2 pg (28.0-32.0); MEAN CORPUSCULAR VOLUME 93.2 fL (81.0-99.0); MEAN PLATELET VOLUME 9.3 fl (7.4-10.4); MONOCYTES % 9.4 % (2.0-8.0); NEUTROPHILS % 75.5 % (40.0-76.0); PLATELET 176 x1000/uL (130-400); RED BLOOD CELL COUNT 3.23 mill/uL (4.2-5.4); RED CELL DISTRIBUTION WIDTH 16.2 % (11.6-14.6)
[2020-11-13] MEDS: HYDRALAZINE 20MG/ML VIAL IV PRN (07:03)
[2020-11-13] MEDS: INSULIN LISPRO 100 UNITS/ML SUBCUT SCH ×3 (07:15→16:31)
[2020-11-13 07:34] LABS: CHLORIDE 102 mEq/L (98-107)
[2020-11-13 08:00] VITALS: BP 119/77
[2020-11-13] MEDS: AZITHROMYCIN 500 MG in DEXT 5% WATER 250 ML IV SCH (08:14)
[2020-11-13] MEDS: PANTOPRAZOLE SODIUM 40 MG/VIAL IV SCH (08:29)
[2020-11-13] MEDS: FUROSEMIDE 40MG/4ML VIAL IVP SCH (08:29)
[2020-11-13] MEDS: ENOXAPARIN 30MG/0.3ML SYR SUBCUT SCH (08:30)
[2020-11-13] MEDS: DOCUSATE SODIUM 100MG CAPSULE PO SCH ×2 (08:31→17:24)
[2020-11-13] MEDS: LEVOTHYROXINE SODIUM 50MCG TABLET PO SCH (08:31)
[2020-11-13] MEDS: ASPIRIN 81MG EC TABLET PO SCH (08:31)
[2020-11-13] MEDS: METOPROLOL TARTRATE 50MG TABLET PO SCH (08:31)
[2020-11-13] MEDS: LOSARTAN POTASSIUM 50 MG TABLET PO SCH ×2 (08:31→17:24)
[2020-11-13] MEDS: AMLODIPINE 5MG TABLET PO SCH (08:31)
[2020-11-13] MEDS ORDERED: POTASSIUM CHLORIDE 20MEQ TABLET SR PO SCH ×2 (08:45→13:00)
[2020-11-13] MEDS ORDERED: METHYLPREDNISOLONE SOD SUCC 40 MG/ML VIAL IV SCH (09:00)
[2020-11-13] MEDS: CEFEPIME 1,000 MG in DEXTROSE 5% WATER 50 ML IV SCH (10:54)
[2020-11-13 12:00] VITALS: BP 154/71
[2020-11-13 16:00] VITALS: BP 159/74
[2020-11-13] MEDS ORDERED: ALBU90AE INH (16:29)
[2020-11-13] MEDS ORDERED: P20 PO (16:29)
[2020-11-13] MEDS ORDERED: LEVO500T89 MT (16:29)
[2020-11-13 17:10] VITALS: BP 159/74
[2020-11-13] MEDS ORDERED: METOPROLOL TARTRATE 100MG TABLET PO SCH (17:28)
[2020-11-14] MEDS ORDERED: LEVOTHYROXINE SODIUM 50MCG TABLET PO SCH (06:45)
[2020-11-14] MEDS ORDERED: FAMOTIDINE 20MG TABLET PO SCH (06:45)
[2020-11-14] MEDS ORDERED: LOSARTAN POTASSIUM 50 MG TABLET PO SCH (09:00)
== END 2020-11-13 18:00 | disposition home or self-care (01) | DRG 871 ==
LOC: ER 22:48 → MICUSO 11-09 00:59 → ENRESERV 11-09 02:19 → CVICU 11-10 00:15 → 5WST 11-12 13:48
PROVIDERS: ADMIT Internal Medicine; ATTEND Internal Medicine
PROC: 5A1945Z Respiratory Ventilation, 24-96 Consecutive Hours (ICD-10-PCS; principal; 2020-11-09)
PROC: 0BH17EZ Insertion of Endotracheal Airway into Trachea, Via Natural or Artificial Opening (ICD-10-PCS; 2020-11-09)
PROC: 06HY33Z Insertion of Infusion Device into Lower Vein, Percutaneous Approach (ICD-10-PCS; 2020-11-09)
PROC: 05HY33Z Insertion of Infusion Device into Upper Vein, Percutaneous Approach (ICD-10-PCS; 2020-11-11)
PROC: B54MZZA Ultrasonography of Right Upper Extremity Veins, Guidance (ICD-10-PCS; 2020-11-11)
DX: A41.89 Other specified sepsis (principal); R65.21 Severe sepsis with septic shock; I50.43 Acute on chronic combined systolic (congestive) and diastolic (congestive) heart failure; J96.01 Acute respiratory failure with hypoxia; I21.4 Non-ST elevation (NSTEMI) myocardial infarction; J96.02 Acute respiratory failure with hypercapnia; J15.9 Unspecified bacterial pneumonia; E44.1 Mild protein-calorie malnutrition; E11.9 Type 2 diabetes mellitus without complications; I11.0 Hypertensive heart disease with heart failure; J45.909 Unspecified asthma, uncomplicated; E03.9 Hypothyroidism, unspecified; E66.9 Obesity, unspecified; Z20.822 Contact with and (suspected) exposure to COVID-19; E78.5 Hyperlipidemia, unspecified; E87.6 Hypokalemia; I16.0 Hypertensive urgency; I25.10 Atherosclerotic heart disease of native coronary artery without angina pectoris; Z79.84 Long term (current) use of oral hypoglycemic drugs; Z79.899 Other long term (current) drug therapy; Z88.5 Allergy status to narcotic agent; Z79.51 Long term (current) use of inhaled steroids; Z78.1 Physical restraint status; Z79.82 Long term (current) use of aspirin; Z68.39 Body mass index [BMI] 39.0-39.9, adult
CPT/HCPCS: 36415; 36600; 71045; 76937; 80048; 80053; 80156; 80165; 80184; 80185; 80305; 80307; 80320; 80329; 81003; 82375; 82550; 82553; 82805; 82962; 83605; 83880; 84145; 84443; 84478; 84484; 85025; 87070; 92610; 93005; 93306; 94002; 94003; 94618; 94640; 97116; 97162; 97530; 99291; C1725; C9113; J0360; J0456; J0692; J1100; J1650; J1815; J1940; J1953; J2250; J2543; J2704; J2920; J3010; J3370; J3490; J7040; J7050; J7060; U0003; G0480

== ENCOUNTER 2021-09-06 00:55 | Inpatient (IN) | payer MEDICARE, OTHER ==
[~2021-09-06] VITALS: Ht 165.1 cm; Wt 112.9 kg
[2021-09-06] VITALS (58 sets, daily range): BP systolic 81–165; BP diastolic 53–110
[~2021-09-06 00:55] MED LIST changes: -ASPI-1497 MT; -LEVO500T2 PO; +LEVO500T89 MT; -P20 MT; +P20 PO
[2021-09-06 01:45] LABS: BASOPHILS % 0.4 % (0.0-2.0); EOSINOPHILS % 2.4 % (0.0-5.0); HEMATOCRIT. 33.7 % (36.0-48.0); HEMOGLOBIN. 11.1 g/dL (12.0-16.0); LYMPHOCYTES % 21.1 % (20.0-50.0); MEAN CORPUSCULAR HEMOGLOBIN 30.1 pg (28.0-32.0); MEAN CORPUSCULAR VOLUME 91.1 fL (81.0-99.0); MEAN PLATELET VOLUME 8.4 fl (7.4-10.4); MONOCYTES % 9.7 % (2.0-8.0); NEUTROPHILS % 66.4 % (40.0-76.0); PLATELET 243 x1000/uL (130-400); RED CELL DISTRIBUTION WIDTH 17.4 % (11.6-14.6)
[2021-09-06 01:53] LABS: CHLORIDE 109 mEq/L (98-107)
[2021-09-06 01:58] LABS: ETHANOL BLOOD < 10 mg/dL
[2021-09-06] MEDS ORDERED: FUROSEMIDE 100MG/10ML VIAL IVP SCH (02:30)
[2021-09-06 02:52] LABS: BG CARBOXYHEMOGLOBIN 0.1 % (0.5-1.5); BG DEOXYHEMOGLOBIN 1.1 % (0.0-5.0); BG METHEMOGLOBIN 0.3 % (0.0-1.5); BG OXYGEN SATURATION 98.9 % (92.0-98.5); BG OXYHEMOGLOBIN 98.5 % (94.0-97.0); BG PH 7.085 (7.350-7.450); BG PO2 203.7 mmHg (75.0-100.0); BG TOTAL HEMOGLOBIN 12.1 g/dL (12.0-18.0)
[2021-09-06 06:03] LABS: CLARITY URINE CLOUDY (CLEAR); COLOR URINE YELLOW (YELLOW); KETONES URINE NEGATIVE (NEGATIVE); LEUKOCYTE ESTERASE URINE NEGATIVE (NEGATIVE); NITRITE URINE NEGATIVE (NEGATIVE); OCCULT BLOOD URINE 2+ (NEGATIVE); PH URINE 5.5 (4.5-8.0); PROTEIN URINE 3+ (NEGATIVE); SPECIFIC GRAVITY URINE 1.022 (1.005-1.030); UROBILINOGEN URINE 0.2 E.U./dL (0.2-1.0)
[2021-09-06] MEDS: PROPOFOL 10MG/ML 100ML 100 ML IV SCH ×4 (06:07→22:41)
[2021-09-06] MEDS ORDERED: EPINEPHRINE 0.1MG/ML (1:10,000) 10ML SYR ONE (08:31)
[2021-09-06] MEDS ORDERED: SODIUM BICARBONATE 8.4% 1 MEQ/ML 50ML SYR IV ONE (08:31)
[2021-09-06] MEDS ORDERED: DEXTROSE 50% WATER 50ML SYRINGE IV ONE (08:31)
[2021-09-06 10:05] LABS: BG BASE EXCESS 0.9 mmol/L (-2.0-2.0); BG CARBOXYHEMOGLOBIN 0.3 % (0.5-1.5); BG DEOXYHEMOGLOBIN 1.9 % (0.0-5.0); BG FRACTION INSPIRED OXYGEN 100; BG HCO3 ACT 25.3 mmol/L (22.0-26.0); BG METHEMOGLOBIN 0.3 % (0.0-1.5); BG OXYGEN SATURATION 98.1 % (92.0-98.5); BG OXYHEMOGLOBIN 97.5 % (94.0-97.0); BG PCO2 39.7 mmHg (35.0-45.0); BG PH 7.423 (7.350-7.450); BG PO2 107.2 mmHg (75.0-100.0); BG SAMPLE SITE RIGHT RADIAL; BG TOTAL HEMOGLOBIN 12.6 g/dL (12.0-18.0); BG VENT MODE VENT - AC
[2021-09-06] MEDS: PANTOPRAZOLE SODIUM 40 MG/VIAL IV SCH (11:44)
[2021-09-06] MEDS: METHYLPREDNISOLONE SOD SUCC 40 MG/ML VIAL IV SCH ×2 (11:44→18:08)
[2021-09-06] MEDS: ENOXAPARIN 30MG/0.3ML SYR SUBCUT SCH (11:44)
[2021-09-06] MEDS: DEXT 5%/0.45% NACL 1000ML 1,000 ML IV SCH (11:45)
[2021-09-06] MEDS: IPRATROPIUM BROMIDE (0.02%) 0.5MG/2.5ML NEB HHN SCH ×2 (12:05→19:58)
[2021-09-06] MEDS ORDERED: DEXTROSE 50% WATER 50ML SYRINGE IV PRN (13:30)
[2021-09-06] MEDS ORDERED: DIPHENHYDRAMINE 50MG/ML VIAL IV PRN (15:30)
[2021-09-06] MEDS ORDERED: ACETAMINOPHEN 650MG SUPP PR PRN (15:30)
[2021-09-06] MEDS ORDERED: NOREPINEPHRINE 8 MG in DEXT 5% WATER 242 ML IV PRN (15:30)
[2021-09-06 17:25] LABS: BG BASE EXCESS 0.4 mmol/L (-2.0-2.0); BG CARBOXYHEMOGLOBIN 0.3 % (0.5-1.5); BG DEOXYHEMOGLOBIN 3.8 % (0.0-5.0); BG FRACTION INSPIRED OXYGEN 70; BG HCO3 ACT 23.9 mmol/L (22.0-26.0); BG METHEMOGLOBIN 0.1 % (0.0-1.5); BG OXYGEN SATURATION 96.2 % (92.0-98.5); BG OXYHEMOGLOBIN 95.8 % (94.0-97.0); BG PCO2 34.7 mmHg (35.0-45.0); BG PH 7.456 (7.350-7.450); BG PO2 80.5 mmHg (75.0-100.0); BG SAMPLE SITE RIGHT RADIAL; BG TOTAL HEMOGLOBIN 11.4 g/dL (12.0-18.0); BG VENT MODE VENT - AC
[2021-09-06 17:37] LABS: HEMATOCRIT 33.8 % (36.0-48.0); HEMOGLOBIN 10.8 g/dL (12.0-16.0); MEAN CORPUSCULAR HEMOGLOBIN 29.3 pg (28.0-32.0); MEAN CORPUSCULAR VOLUME 91.2 fL (81.0-99.0); PLATELET 201 x1000/uL (130-400); RED BLOOD CELL COUNT 3.71 mill/uL (4.2-5.4); RED CELL DISTRIBUTION WIDTH 17.2 % (11.6-14.6)
[2021-09-06 17:41] LABS: CHLORIDE 104 mEq/L (98-107)
[2021-09-06 17:46] LABS: INR 1.1; PROTHROMBIN TIME 12.2 sec (9.6-11.0)
[2021-09-06 18:04] LABS: CREATINE KINASE 1616 IU/L (26-192)
[2021-09-06 18:08] LABS: CREATINE KINASE MB FRACTION 8.7 ng/mL (0.5-3.6)
[2021-09-06] MEDS: PIPERACILLIN/TAZOBACTAM 3.375G in DEXT 5% WATER 50ML IV SCH ×2 (18:08→21:35)
[2021-09-06] MEDS: BLOOD SUGAR DIAGNOSTIC STRIP TEST SCH ×2 (18:09→21:32)
[2021-09-06] MEDS ORDERED: INSULIN LISPRO 100 UNITS/ML SUBCUT SCH (18:20)
[2021-09-06] MEDS: INSULIN LISPRO 100 UNITS/ML SUBCUT SCH (21:36)
[2021-09-06] MEDS ORDERED: PIPERACILLIN/TAZOBACTAM 3.375 G in DEXTROSE 5% WATER 50 ML IV SCH (22:00)
[2021-09-07] VITALS (87 sets, daily range): BP systolic 89–168; BP diastolic 54–126
[2021-09-07] MEDS: IPRATROPIUM BROMIDE (0.02%) 0.5MG/2.5ML NEB HHN SCH ×4 (00:30→20:49)
[2021-09-07] MEDS: DEXT 5%/0.45% NACL 1000ML 1,000 ML IV SCH ×2 (01:46→14:34)
[2021-09-07] MEDS: METHYLPREDNISOLONE SOD SUCC 40 MG/ML VIAL IV SCH ×3 (04:21→18:55)
[2021-09-07] MEDS: PROPOFOL 10MG/ML 100ML 100 ML IV PRN ×5 (04:58→23:42)
[2021-09-07] MEDS: PIPERACILLIN/TAZOBACTAM 3.375G in DEXT 5% WATER 50ML IV SCH ×3 (05:00→22:00)
[2021-09-07 06:03] LABS: HEMATOCRIT. 29.5 % (36.0-48.0); HEMOGLOBIN. 9.4 g/dL (12.0-16.0); MEAN CORPUSCULAR HEMOGLOBIN 28.9 pg (28.0-32.0); MEAN CORPUSCULAR VOLUME 90.6 fL (81.0-99.0); PLATELET 188 x1000/uL (130-400); RED BLOOD CELL COUNT 3.25 mill/uL (4.2-5.4); RED CELL DISTRIBUTION WIDTH 17.8 % (11.6-14.6)
[2021-09-07] MEDS ORDERED: IOHEXOL-350 100 ML BOTTLE ONE (06:14)
[2021-09-07] MEDS: BLOOD SUGAR DIAGNOSTIC STRIP TEST SCH ×4 (07:46→21:00)
[2021-09-07] MEDS: PROPOFOL 10MG/ML 100ML 100 ML IV SCH (07:47)
[2021-09-07] MEDS ORDERED: LIDOCAINE HCL 1% 10 MG/ML 10ML VIAL ONE (08:15)
[2021-09-07] MEDS ORDERED: POTASSIUM CHLORIDE INJ 40 MEQ in DEXT 5% WATER 250 ML IV ONE (08:30)
[2021-09-07 09:28] LABS: BG BASE EXCESS 1.9 mmol/L (-2.0-2.0); BG CARBOXYHEMOGLOBIN 0.3 % (0.5-1.5); BG DEOXYHEMOGLOBIN 4.2 % (0.0-5.0); BG FRACTION INSPIRED OXYGEN 70; BG HCO3 ACT 26.8 mmol/L (22.0-26.0); BG METHEMOGLOBIN 0.3 % (0.0-1.5); BG OXYGEN SATURATION 95.8 % (92.0-98.5); BG OXYHEMOGLOBIN 95.2 % (94.0-97.0); BG PCO2 43.1 mmHg (35.0-45.0); BG PH 7.411 (7.350-7.450); BG PO2 82.3 mmHg (75.0-100.0); BG SAMPLE SITE RIGHT RADIAL; BG TOTAL HEMOGLOBIN 10.6 g/dL (12.0-18.0); BG VENT MODE VENT - AC
[2021-09-07] MEDS: PANTOPRAZOLE SODIUM 40 MG/VIAL IV SCH (09:30)
[2021-09-07] MEDS: INSULIN LISPRO 100 UNITS/ML SUBCUT SCH ×4 (09:30→21:00)
[2021-09-07 10:40] LABS: PLATELET ESTIMATE NORMAL
[2021-09-07] MEDS: KCL 20MEQ/100ML X 2 FOR TOTAL KCL 40MEQ/200ML IV SCH ×2 (10:55→14:33)
[2021-09-07] MEDS: ENOXAPARIN 30MG/0.3ML SYR SUBCUT SCH ×2 (11:34)
[2021-09-07 13:17] LABS: CREATINE KINASE MB FRACTION 3.2 ng/mL (0.5-3.6)
[2021-09-07 13:40] LABS: CREATINE KINASE 1092 IU/L (26-192)
[2021-09-08] VITALS (83 sets, daily range): BP systolic 118–194; BP diastolic 65–108
[2021-09-08] MEDS: IPRATROPIUM BROMIDE (0.02%) 0.5MG/2.5ML NEB HHN SCH ×4 (00:59→21:01)
[2021-09-08] MEDS: METHYLPREDNISOLONE SOD SUCC 40 MG/ML VIAL IV SCH ×3 (02:30→21:11)
[2021-09-08] MEDS: PROPOFOL 10MG/ML 100ML 100 ML IV PRN ×4 (02:45→13:49)
[2021-09-08] MEDS: PIPERACILLIN/TAZOBACTAM 3.375G in DEXT 5% WATER 50ML IV SCH ×3 (06:00→21:12)
[2021-09-08 06:30] LABS: HEMATOCRIT. 29.2 % (36.0-48.0); HEMOGLOBIN. 9.5 g/dL (12.0-16.0); MEAN CORPUSCULAR HEMOGLOBIN 29.1 pg (28.0-32.0); MEAN CORPUSCULAR VOLUME 89.9 fL (81.0-99.0); MEAN PLATELET VOLUME 8.9 fl (7.4-10.4); PLATELET 184 x1000/uL (130-400); RED BLOOD CELL COUNT 3.25 mill/uL (4.2-5.4); RED CELL DISTRIBUTION WIDTH 17.5 % (11.6-14.6)
[2021-09-08] MEDS: BLOOD SUGAR DIAGNOSTIC STRIP TEST SCH ×4 (07:50→20:37)
[2021-09-08 08:21] LABS: BG BASE EXCESS 0.1 mmol/L (-2.0-2.0); BG CARBOXYHEMOGLOBIN 0.3 % (0.5-1.5); BG FRACTION INSPIRED OXYGEN 70; BG HCO3 ACT 24.5 mmol/L (22.0-26.0); BG METHEMOGLOBIN 0.3 % (0.0-1.5); BG OXYHEMOGLOBIN 93.4 % (94.0-97.0); BG PCO2 38.4 mmHg (35.0-45.0); BG PEEP (cmH2O) 0 cmH2O; BG PH 7.422 (7.350-7.450); BG SAMPLE SITE RIGHT RADIAL; BG TOTAL HEMOGLOBIN 10.1 g/dL (12.0-18.0); BG VENT MODE VENT - AC
[2021-09-08] MEDS: INSULIN LISPRO 100 UNITS/ML SUBCUT SCH ×4 (08:37→21:12)
[2021-09-08] MEDS: PANTOPRAZOLE SODIUM 40 MG/VIAL IV SCH (08:37)
[2021-09-08] MEDS: DEXT 5%/0.45% NACL 1000ML 1,000 ML IV SCH (08:40)
[2021-09-08 09:05] LABS: PLATELET ESTIMATE NORMAL
[2021-09-08] MEDS: ENOXAPARIN 30MG/0.3ML SYR SUBCUT SCH ×3 (12:00→23:07)
[2021-09-08] MEDS: FUROSEMIDE 40MG/4ML VIAL IVP SCH ×2 (12:33→21:11)
[2021-09-08 16:34] LABS: BG BASE EXCESS 1.4 mmol/L (-2.0-2.0); BG CARBOXYHEMOGLOBIN 0.3 % (0.5-1.5); BG DEOXYHEMOGLOBIN 5.1 % (0.0-5.0); BG HCO3 ACT 25.3 mmol/L (22.0-26.0); BG METHEMOGLOBIN 0.2 % (0.0-1.5); BG OXYGEN SATURATION 94.9 % (92.0-98.5); BG OXYHEMOGLOBIN 94.4 % (94.0-97.0); BG PCO2 37.3 mmHg (35.0-45.0); BG PH 7.449 (7.350-7.450); BG SAMPLE SITE RIGHT RADIAL; BG TOTAL HEMOGLOBIN 11.1 g/dL (12.0-18.0); BG VENT MODE VENT - AC
[2021-09-08] MEDS: HYDRALAZINE 20MG/ML VIAL IV PRN ×2 (16:45→23:08)
[2021-09-08] MEDS ORDERED: INSULIN GLARGINE UD 100 UNITS/ML SYR SUBCUT NR (17:00)
[2021-09-08 18:12] LABS: BG BASE EXCESS 1.1 mmol/L (-2.0-2.0); BG CARBOXYHEMOGLOBIN 0.3 % (0.5-1.5); BG DEOXYHEMOGLOBIN 4.2 % (0.0-5.0); BG FRACTION INSPIRED OXYGEN 40; BG HCO3 ACT 24.3 mmol/L (22.0-26.0); BG METHEMOGLOBIN 0.3 % (0.0-1.5); BG OXYGEN SATURATION 95.8 % (92.0-98.5); BG OXYHEMOGLOBIN 95.2 % (94.0-97.0); BG PCO2 33.9 mmHg (35.0-45.0); BG PH 7.474 (7.350-7.450); BG PO2 79.6 mmHg (75.0-100.0); BG SAMPLE SITE RIGHT RADIAL; BG TOTAL HEMOGLOBIN 11.1 g/dL (12.0-18.0); BG TOTAL RESPIRATORY RATE 23 b/min; BG VENT MODE VENT - CPAP
[2021-09-08] MEDS: CARVEDILOL 6.25 MG TABLET PO SCH (21:12)
[2021-09-08 21:31] LABS: BG BASE EXCESS 3.4 mmol/L (-2.0-2.0); BG CARBOXYHEMOGLOBIN 0.2 % (0.5-1.5); BG DEOXYHEMOGLOBIN 4.3 % (0.0-5.0); BG FRACTION INSPIRED OXYGEN 40; BG HCO3 ACT 27.7 mmol/L (22.0-26.0); BG METHEMOGLOBIN 0.3 % (0.0-1.5); BG OXYGEN SATURATION 95.7 % (92.0-98.5); BG OXYHEMOGLOBIN 95.2 % (94.0-97.0); BG PCO2 40.7 mmHg (35.0-45.0); BG PO2 77.7 mmHg (75.0-100.0); BG SAMPLE SITE RIGHT RADIAL; BG TOTAL HEMOGLOBIN 13.5 g/dL (12.0-18.0); BG VENT MODE COOL AEROSOL
[2021-09-09] VITALS (41 sets, daily range): BP systolic 130–189; BP diastolic 63–101
[2021-09-09] MEDS: IPRATROPIUM BROMIDE (0.02%) 0.5MG/2.5ML NEB HHN SCH ×4 (01:07→20:29)
[2021-09-09] MEDS: PIPERACILLIN/TAZOBACTAM 3.375G in DEXT 5% WATER 50ML IV SCH ×3 (06:12→21:00)
[2021-09-09] MEDS: FUROSEMIDE 40MG/4ML VIAL IVP SCH ×2 (06:12→17:09)
[2021-09-09 06:19] LABS: HEMATOCRIT. 31.2 % (36.0-48.0); HEMOGLOBIN. 9.9 g/dL (12.0-16.0); MEAN CORPUSCULAR HEMOGLOBIN 28.8 pg (28.0-32.0); MEAN CORPUSCULAR VOLUME 90.5 fL (81.0-99.0); MEAN PLATELET VOLUME 8.9 fl (7.4-10.4); PLATELET 202 x1000/uL (130-400); RED BLOOD CELL COUNT 3.45 mill/uL (4.2-5.4); RED CELL DISTRIBUTION WIDTH 17.3 % (11.6-14.6)
[2021-09-09 06:30] LABS: CHLORIDE 106 mEq/L (98-107)
[2021-09-09 07:50] LABS: PLATELET ESTIMATE NORMAL
[2021-09-09 08:30] LABS: BG BASE EXCESS 3.8 mmol/L (-2.0-2.0); BG CARBOXYHEMOGLOBIN 0.1 % (0.5-1.5); BG DEOXYHEMOGLOBIN 6.2 % (0.0-5.0); BG FRACTION INSPIRED OXYGEN 40; BG HCO3 ACT 27.8 mmol/L (22.0-26.0); BG METHEMOGLOBIN 0.2 % (0.0-1.5); BG OXYGEN SATURATION 93.8 % (92.0-98.5); BG OXYHEMOGLOBIN 93.5 % (94.0-97.0); BG PCO2 39.7 mmHg (35.0-45.0); BG PH 7.463 (7.350-7.450); BG PO2 67.8 mmHg (75.0-100.0); BG TOTAL HEMOGLOBIN 10.7 g/dL (12.0-18.0); BG VENT MODE COOL AEROSOL
[2021-09-09] MEDS: BLOOD SUGAR DIAGNOSTIC STRIP TEST SCH ×4 (08:47→21:11)
[2021-09-09] MEDS: INSULIN LISPRO 100 UNITS/ML SUBCUT SCH ×4 (08:49→21:09)
[2021-09-09] MEDS: PANTOPRAZOLE SODIUM 40 MG/VIAL IV SCH (08:50)
[2021-09-09] MEDS: CARVEDILOL 6.25 MG TABLET PO SCH (08:51)
[2021-09-09] MEDS: INSULIN GLARGINE UD 100 UNITS/ML SYR SUBCUT SCH (09:03)
[2021-09-09] MEDS: METHYLPREDNISOLONE SOD SUCC 40 MG/ML VIAL IV SCH ×2 (09:31→23:26)
[2021-09-09] MEDS: ENOXAPARIN 30MG/0.3ML SYR SUBCUT SCH (11:47)
[2021-09-09] MEDS: KCL 20MEQ/100ML PREMIX 100 ML IV SCH ×2 (11:48→14:13)
[2021-09-09] MEDS: HYDRALAZINE 20MG/ML VIAL IV PRN ×2 (11:53→17:02)
[2021-09-09] MEDS ORDERED: POTASSIUM CHLORIDE INJ 40 MEQ in DEXT 5% WATER 250 ML IV ONE (12:30)
[2021-09-09 12:53] LABS: PROTHROMBIN TIME 10.7 sec (9.6-11.0)
[2021-09-09] MEDS: HYDRALAZINE HCL 50MG TABLET PO SCH ×2 (14:14→21:00)
[2021-09-09] MEDS ORDERED: POTASSIUM CHLORIDE 20MEQ/PACKET PO NR (15:00)
[2021-09-09] MEDS ORDERED: LOSARTAN POTASSIUM 25 MG TABLET PO SCH (15:00)
[2021-09-09] MEDS: LOSARTAN POTASSIUM 25 MG TABLET PO SCH ×2 (15:11→23:26)
[2021-09-09] MEDS ORDERED: KCL 20MEQ/100ML PREMIX 100 ML IV NR (16:00)
[2021-09-09] MEDS: CARVEDILOL 12.5MG TABLET PO SCH (20:54)
[2021-09-10] VITALS (49 sets, daily range): BP systolic 132–196; BP diastolic 50–109
[2021-09-10] MEDS: IPRATROPIUM BROMIDE (0.02%) 0.5MG/2.5ML NEB HHN SCH ×4 (02:07→19:55)
[2021-09-10] MEDS: ONDANSETRON HCL 4MG/2ML INJ IV PRN (02:34)
[2021-09-10] MEDS: CLONIDINE 0.1MG TABLET PO PRN (02:40)
[2021-09-10 05:43] LABS: HEMATOCRIT. 31.1 % (36.0-48.0); HEMOGLOBIN. 10.3 g/dL (12.0-16.0); MEAN CORPUSCULAR HEMOGLOBIN 29.8 pg (28.0-32.0); MEAN CORPUSCULAR VOLUME 90.3 fL (81.0-99.0); MEAN PLATELET VOLUME 8.6 fl (7.4-10.4); PLATELET 193 x1000/uL (130-400); RED BLOOD CELL COUNT 3.45 mill/uL (4.2-5.4); RED CELL DISTRIBUTION WIDTH 17.2 % (11.6-14.6)
[2021-09-10 06:01] LABS: CHLORIDE 108 mEq/L (98-107)
[2021-09-10] MEDS: FUROSEMIDE 40MG/4ML VIAL IVP SCH ×2 (06:34→17:45)
[2021-09-10] MEDS: PIPERACILLIN/TAZOBACTAM 3.375G in DEXT 5% WATER 50ML IV SCH ×3 (06:34→22:19)
[2021-09-10] MEDS: HYDRALAZINE HCL 50MG TABLET PO SCH ×3 (06:34→22:20)
[2021-09-10 07:06] LABS: PLATELET ESTIMATE NORMAL
[2021-09-10] MEDS: BLOOD SUGAR DIAGNOSTIC STRIP TEST SCH ×4 (07:50→20:32)
[2021-09-10] MEDS: INSULIN LISPRO 100 UNITS/ML SUBCUT SCH ×4 (08:20→20:22)
[2021-09-10 08:52] LABS: BG BASE EXCESS 3.7 mmol/L (-2.0-2.0); BG CARBOXYHEMOGLOBIN 0.3 % (0.5-1.5); BG DEOXYHEMOGLOBIN 3.7 % (0.0-5.0); BG FRACTION INSPIRED OXYGEN 40; BG HCO3 ACT 29.3 mmol/L (22.0-26.0); BG METHEMOGLOBIN 0.2 % (0.0-1.5); BG OXYGEN SATURATION 96.3 % (92.0-98.5); BG OXYHEMOGLOBIN 95.8 % (94.0-97.0); BG PCO2 49.1 mmHg (35.0-45.0); BG PH 7.394 (7.350-7.450); BG PO2 91.4 mmHg (75.0-100.0); BG SAMPLE SITE RIGHT RADIAL; BG TOTAL HEMOGLOBIN 11.3 g/dL (12.0-18.0); BG VENT MODE NASAL CANNULA
[2021-09-10] MEDS: CARVEDILOL 12.5MG TABLET PO SCH ×2 (09:00→20:20)
[2021-09-10] MEDS: LOSARTAN POTASSIUM 25 MG TABLET PO SCH ×2 (09:00→20:20)
[2021-09-10] MEDS: METHYLPREDNISOLONE SOD SUCC 40 MG/ML VIAL IV SCH ×2 (09:38→22:19)
[2021-09-10] MEDS: PANTOPRAZOLE SODIUM 40 MG/VIAL IV SCH (09:38)
[2021-09-10] MEDS: INSULIN GLARGINE UD 100 UNITS/ML SYR SUBCUT SCH ×2 (09:39→22:21)
[2021-09-10] MEDS: GUAIFENESIN 200MG/10ML SUGAR FREE UDC PO PRN ×2 (14:33→22:35)
[2021-09-10 15:58] LABS: BG CARBOXYHEMOGLOBIN 0.4 % (0.5-1.5); BG DEOXYHEMOGLOBIN 14.3 % (0.0-5.0); BG FRACTION INSPIRED OXYGEN 21; BG METHEMOGLOBIN 0.3 % (0.0-1.5); BG OXYGEN SATURATION 85.6 % (92.0-98.5); BG PCO2 44.3 mmHg (35.0-45.0); BG PH 7.418 (7.350-7.450); BG PO2 51.6 mmHg (75.0-100.0); BG SAMPLE SITE RIGHT RADIAL; BG TOTAL HEMOGLOBIN 11.5 g/dL (12.0-18.0); BG VENT MODE ROOM AIR
[2021-09-10] MEDS: ASPIRIN 81MG TABLET PO SCH (17:45)
[2021-09-10] MEDS: LACTULOSE 20G/30ML UDC PO PRN (20:21)
[2021-09-11] VITALS (46 sets, daily range): BP systolic 122–187; BP diastolic 32–97
[2021-09-11] MEDS: IPRATROPIUM BROMIDE (0.02%) 0.5MG/2.5ML NEB HHN SCH ×4 (01:55→20:35)
[2021-09-11] MEDS: FUROSEMIDE 40MG/4ML VIAL IVP SCH ×2 (05:24→17:24)
[2021-09-11] MEDS: PIPERACILLIN/TAZOBACTAM 3.375G in DEXT 5% WATER 50ML IV SCH ×3 (05:24→22:26)
[2021-09-11] MEDS: GUAIFENESIN 200MG/10ML SUGAR FREE UDC PO PRN ×3 (05:24→17:24)
[2021-09-11] MEDS: HYDRALAZINE HCL 50MG TABLET PO SCH ×3 (05:24→22:26)
[2021-09-11 06:02] LABS: HEMATOCRIT. 31.2 % (36.0-48.0); HEMOGLOBIN. 10.3 g/dL (12.0-16.0); MEAN CORPUSCULAR HEMOGLOBIN 29.9 pg (28.0-32.0); MEAN CORPUSCULAR VOLUME 90.3 fL (81.0-99.0); MEAN PLATELET VOLUME 8.6 fl (7.4-10.4); PLATELET 175 x1000/uL (130-400); RED BLOOD CELL COUNT 3.45 mill/uL (4.2-5.4); RED CELL DISTRIBUTION WIDTH 16.8 % (11.6-14.6)
[2021-09-11] MEDS: HYDRALAZINE 20MG/ML VIAL IV PRN (06:48)
[2021-09-11] MEDS: CLONIDINE 0.1MG TABLET PO PRN (07:03)
[2021-09-11] MEDS: BLOOD SUGAR DIAGNOSTIC STRIP TEST SCH ×4 (07:50→21:33)
[2021-09-11] MEDS: LACTULOSE 20G/30ML UDC PO PRN (09:19)
[2021-09-11] MEDS: ASPIRIN 81MG TABLET PO SCH (09:20)
[2021-09-11] MEDS: PANTOPRAZOLE SODIUM 40 MG/VIAL IV SCH (09:20)
[2021-09-11] MEDS: LOSARTAN POTASSIUM 25 MG TABLET PO SCH (09:20)
[2021-09-11] MEDS: METHYLPREDNISOLONE SOD SUCC 40 MG/ML VIAL IV SCH (09:20)
[2021-09-11] MEDS: CARVEDILOL 12.5MG TABLET PO SCH ×2 (09:20→21:14)
[2021-09-11] MEDS: INSULIN GLARGINE UD 100 UNITS/ML SYR SUBCUT SCH ×2 (09:21→22:27)
[2021-09-11] MEDS: INSULIN LISPRO 100 UNITS/ML SUBCUT SCH ×4 (09:22→21:33)
[2021-09-11 14:07] LABS: PLATELET ESTIMATE NORMAL
[2021-09-11] MEDS: ACETYLCYSTEINE 100MG/ML 10% VIAL 4ML INH SCH (14:28)
[2021-09-11] MEDS: LOSARTAN POTASSIUM 50 MG TABLET PO SCH (21:14)
[2021-09-12] VITALS (39 sets, daily range): BP systolic 66–167; BP diastolic 31–85
[2021-09-12] MEDS: ACETYLCYSTEINE 100MG/ML 10% VIAL 4ML INH SCH ×4 (00:39→14:59)
[2021-09-12] MEDS: IPRATROPIUM BROMIDE (0.02%) 0.5MG/2.5ML NEB HHN SCH ×4 (00:39→20:35)
[2021-09-12] MEDS: FUROSEMIDE 40MG/4ML VIAL IVP SCH ×2 (05:53→17:30)
[2021-09-12] MEDS: HYDRALAZINE HCL 50MG TABLET PO SCH ×3 (05:54→22:00)
[2021-09-12] MEDS: BLOOD SUGAR DIAGNOSTIC STRIP TEST SCH ×4 (06:46→21:58)
[2021-09-12] MEDS: INSULIN LISPRO 100 UNITS/ML SUBCUT SCH ×4 (07:50→21:00)
[2021-09-12] MEDS: METHYLPREDNISOLONE SOD SUCC 40 MG/ML VIAL IV SCH (09:11)
[2021-09-12] MEDS: PANTOPRAZOLE SODIUM 40 MG/VIAL IV SCH (09:11)
[2021-09-12] MEDS: LOSARTAN POTASSIUM 50 MG TABLET PO SCH ×2 (09:11→17:30)
[2021-09-12] MEDS: ASPIRIN 81MG TABLET PO SCH (09:11)
[2021-09-12] MEDS: CARVEDILOL 12.5MG TABLET PO SCH ×3 (09:12→23:50)
[2021-09-12] MEDS: INSULIN GLARGINE UD 100 UNITS/ML SYR SUBCUT SCH ×2 (12:03→22:06)
[2021-09-12 12:51] LABS: HEMATOCRIT. 32.9 % (36.0-48.0); HEMOGLOBIN. 11.6 g/dL (12.0-16.0); MEAN CORPUSCULAR HEMOGLOBIN 31.2 pg (28.0-32.0); MEAN CORPUSCULAR VOLUME 88.6 fL (81.0-99.0); MEAN PLATELET VOLUME 8.2 fl (7.4-10.4); PLATELET 181 x1000/uL (130-400); RED BLOOD CELL COUNT 3.72 mill/uL (4.2-5.4); RED CELL DISTRIBUTION WIDTH 16.6 % (11.6-14.6)
[2021-09-12 13:02] LABS: CHLORIDE 100 mEq/L (98-107)
[2021-09-12 13:20] LABS: PLATELET ESTIMATE NORMAL
[2021-09-12] MEDS: CLONIDINE 0.1MG TABLET PO SCH ×2 (13:28→21:00)
[2021-09-12] MEDS: GUAIFENESIN 200MG/10ML SUGAR FREE UDC PO PRN (13:51)
[2021-09-12] MEDS ORDERED: GADOTERATE MEGLUMINE 5 MMOL/10 ML VIAL IV ONE (15:50)
[2021-09-12] MEDS: ACETAMINOPHEN 325MG TABLET PO PRN (16:42)
[2021-09-12] MEDS ORDERED: POTASSIUM CHLORIDE INJ 40 MEQ in DEXT 5% WATER 250 ML IV SCH (17:00)
[2021-09-13] VITALS (44 sets, daily range): BP systolic 98–168; BP diastolic 16–91
[2021-09-13] MEDS: IPRATROPIUM BROMIDE (0.02%) 0.5MG/2.5ML NEB HHN SCH ×4 (00:54→20:24)
[2021-09-13 05:28] LABS: HEMATOCRIT. 31.4 % (36.0-48.0); HEMOGLOBIN. 10.5 g/dL (12.0-16.0); MEAN CORPUSCULAR VOLUME 89.4 fL (81.0-99.0); MEAN PLATELET VOLUME 8.2 fl (7.4-10.4); PLATELET 172 x1000/uL (130-400); RED BLOOD CELL COUNT 3.51 mill/uL (4.2-5.4); RED CELL DISTRIBUTION WIDTH 16.5 % (11.6-14.6)
[2021-09-13 05:33] LABS: CHLORIDE 100 mEq/L (98-107)
[2021-09-13 05:40] LABS: LDL CHOLESTEROL 70 mg/dL (5-100)
[2021-09-13 05:42] LABS: HDL CHOLESTEROL 48 mg/dL (40-59)
[2021-09-13] MEDS: BLOOD SUGAR DIAGNOSTIC STRIP TEST SCH ×4 (06:03→20:48)
[2021-09-13] MEDS: INSULIN LISPRO 100 UNITS/ML SUBCUT SCH ×4 (06:04→20:48)
[2021-09-13] MEDS: FUROSEMIDE 40MG/4ML VIAL IVP SCH ×2 (06:34→17:04)
[2021-09-13] MEDS: HEPARIN 5000 UNITS/ML VIAL SUBCUT SCH ×3 (06:34→22:34)
[2021-09-13] MEDS: HYDRALAZINE HCL 50MG TABLET PO SCH ×3 (07:09→22:33)
[2021-09-13 07:18] LABS: PLATELET ESTIMATE NORMAL
[2021-09-13] MEDS: ACETYLCYSTEINE 100MG/ML 10% VIAL 4ML INH SCH ×2 (08:01→13:19)
[2021-09-13] MEDS: PANTOPRAZOLE SODIUM 40 MG/VIAL IV SCH (08:28)
[2021-09-13] MEDS: ASPIRIN 81MG TABLET PO SCH (08:29)
[2021-09-13] MEDS: METHYLPREDNISOLONE SOD SUCC 40 MG/ML VIAL IV SCH (08:29)
[2021-09-13] MEDS: CLOPIDOGREL 75MG TABLET PO SCH (08:29)
[2021-09-13] MEDS: CARVEDILOL 12.5MG TABLET PO SCH ×2 (08:30→22:34)
[2021-09-13] MEDS: LOSARTAN POTASSIUM 50 MG TABLET PO SCH ×2 (08:30→17:04)
[2021-09-13] MEDS: CLONIDINE 0.1MG TABLET PO SCH ×2 (08:31→20:47)
[2021-09-13] MEDS: GUAIFENESIN 200MG/10ML SUGAR FREE UDC PO PRN ×2 (08:32→17:03)
[2021-09-13] MEDS: ACETAMINOPHEN 325MG TABLET PO PRN ×2 (08:33→17:04)
[2021-09-13] MEDS: INSULIN GLARGINE UD 100 UNITS/ML SYR SUBCUT SCH ×2 (11:05→22:45)
[2021-09-13] MEDS ORDERED: POTASSIUM CHLORIDE 20MEQ TABLET SR PO NR (14:30)
[2021-09-13] MEDS ORDERED: POTASSIUM CHLORIDE INJ 40 MEQ in DEXT 5% WATER 250 ML IV ONE (15:00)
[2021-09-13] MEDS: HYDRALAZINE 20MG/ML VIAL IV PRN (17:04)
[2021-09-13] MEDS: KCL 20MEQ/100ML X 2 FOR TOTAL KCL 40MEQ/200ML IV SCH ×2 (17:06→17:30)
[2021-09-13] MEDS ORDERED: KETOROLAC 15MG/ML VIAL IV NR (20:30)
[2021-09-13] MEDS: ONDANSETRON HCL 4MG/2ML INJ IV PRN (23:38)
[2021-09-14] VITALS: BP 118/70
[2021-09-14] MEDS: ACETYLCYSTEINE 100MG/ML 10% VIAL 4ML INH SCH ×2 (01:24→10:03)
[2021-09-14] MEDS: IPRATROPIUM BROMIDE (0.02%) 0.5MG/2.5ML NEB HHN SCH ×2 (01:24→10:03)
[2021-09-14 04:00] VITALS: BP 110/60
[2021-09-14] MEDS: HYDRALAZINE HCL 50MG TABLET PO SCH ×2 (06:00→13:36)
[2021-09-14] MEDS: FUROSEMIDE 40MG/4ML VIAL IVP SCH (06:26)
[2021-09-14] MEDS: BLOOD SUGAR DIAGNOSTIC STRIP TEST SCH ×2 (06:29→12:23)
[2021-09-14] MEDS: HEPARIN 5000 UNITS/ML VIAL SUBCUT SCH ×2 (06:29→13:36)
[2021-09-14] MEDS: INSULIN LISPRO 100 UNITS/ML SUBCUT SCH ×2 (06:45→12:25)
[2021-09-14] MEDS: ACETAMINOPHEN 325MG TABLET PO PRN (06:49)
[2021-09-14 07:16] LABS: BASOPHILS % 0.1 % (0.0-2.0); EOSINOPHILS % 1.2 % (0.0-5.0); HEMATOCRIT. 28.9 % (36.0-48.0); MEAN CORPUSCULAR HEMOGLOBIN 30.8 pg (28.0-32.0); MEAN CORPUSCULAR VOLUME 89.2 fL (81.0-99.0); MEAN PLATELET VOLUME 8.5 fl (7.4-10.4); MONOCYTES % 12.5 % (2.0-8.0); NEUTROPHILS % 76.2 % (40.0-76.0); PLATELET 168 x1000/uL (130-400); RED BLOOD CELL COUNT 3.24 mill/uL (4.2-5.4); RED CELL DISTRIBUTION WIDTH 16.5 % (11.6-14.6)
[2021-09-14 08:00] VITALS: BP 126/52
[2021-09-14] MEDS ORDERED: POTASSIUM CHLORIDE 20MEQ TABLET SR PO SCH (09:00)
[2021-09-14] MEDS: CARVEDILOL 12.5MG TABLET PO SCH (09:00)
[2021-09-14] MEDS: METHYLPREDNISOLONE SOD SUCC 40 MG/ML VIAL IV SCH (09:06)
[2021-09-14] MEDS: CLONIDINE 0.1MG TABLET PO SCH (09:06)
[2021-09-14] MEDS: PANTOPRAZOLE SODIUM 40 MG/VIAL IV SCH (09:06)
[2021-09-14] MEDS: ASPIRIN 81MG TABLET PO SCH (09:08)
[2021-09-14] MEDS: LOSARTAN POTASSIUM 50 MG TABLET PO SCH (09:08)
[2021-09-14] MEDS: CLOPIDOGREL 75MG TABLET PO SCH (09:08)
[2021-09-14] MEDS: INSULIN GLARGINE UD 100 UNITS/ML SYR SUBCUT SCH (10:33)
[2021-09-14 12:00] VITALS: BP 127/51
[2021-09-14] MEDS ORDERED: CLOP-31 MT ×2 (12:53)
[2021-09-14] MEDS ORDERED: COR12 MT (12:53)
[2021-09-14] MEDS ORDERED: GUAI600T26 MT (12:53)
[2021-09-14] MEDS ORDERED: GUAI5SYR3 MT (12:53)
[2021-09-14] MEDS ORDERED: LOSA50TA3 MT (12:53)
[2021-09-14] MEDS ORDERED: P20 PO (12:53)
[2021-09-14] MEDS ORDERED: ASPI-1497 MT (12:53)
[2021-09-14] MEDS ORDERED: IPRA3AMP9 NEB (12:53)
[2021-09-14 13:17] VITALS: BP 127/51
== END 2021-09-14 14:40 | disposition home or self-care (01) | DRG 871 ==
LOC: ER 00:55 → CVICU 02:33 → ENRESERV 08:53 → 6WST 09-12 04:45 → MICUNO 09-12 10:43 → 8WST 09-13 21:17
PROVIDERS: ADMIT Internal Medicine; ATTEND Internal Medicine
PROC: 5A1945Z Respiratory Ventilation, 24-96 Consecutive Hours (ICD-10-PCS; principal; 2021-09-06)
PROC: 0BH17EZ Insertion of Endotracheal Airway into Trachea, Via Natural or Artificial Opening (ICD-10-PCS; 2021-09-06)
PROC: 5A12012 Performance of Cardiac Output, Single, Manual (ICD-10-PCS; 2021-09-06)
PROC: 02HV33Z Insertion of Infusion Device into Superior Vena Cava, Percutaneous Approach (ICD-10-PCS; 2021-09-07)
PROC: B548ZZA Ultrasonography of Superior Vena Cava, Guidance (ICD-10-PCS; 2021-09-07)
DX: A41.9 Sepsis, unspecified organism (principal); G93.41 Metabolic encephalopathy; I46.9 Cardiac arrest, cause unspecified; J18.9 Pneumonia, unspecified organism; J96.01 Acute respiratory failure with hypoxia; I21.4 Non-ST elevation (NSTEMI) myocardial infarction; I42.8 Other cardiomyopathies; I50.20 Unspecified systolic (congestive) heart failure; J44.0 Chronic obstructive pulmonary disease with (acute) lower respiratory infection; M62.82 Rhabdomyolysis; N17.9 Acute kidney failure, unspecified; N39.0 Urinary tract infection, site not specified; D64.9 Anemia, unspecified; E03.9 Hypothyroidism, unspecified; E11.65 Type 2 diabetes mellitus with hyperglycemia; E78.5 Hyperlipidemia, unspecified; Z20.822 Contact with and (suspected) exposure to COVID-19; E87.6 Hypokalemia; I11.0 Hypertensive heart disease with heart failure; I25.10 Atherosclerotic heart disease of native coronary artery without angina pectoris; I44.7 Left bundle-branch block, unspecified; H05.20 Unspecified exophthalmos; H54.62 Unqualified visual loss, left eye, normal vision right eye; Z79.4 Long term (current) use of insulin; Z79.84 Long term (current) use of oral hypoglycemic drugs; Z79.899 Other long term (current) drug therapy; Z88.5 Allergy status to narcotic agent; Z91.012 Allergy to eggs; Z87.09 Personal history of other diseases of the respiratory system
CPT/HCPCS: 36415; 36600; 70544; 70549; 70553; 71045; 71275; 76937; 80048; 80053; 80061; 80320; 81003; 82375; 82550; 82553; 82805; 82962; 83036; 83605; 83735; 83880; 84132; 84145; 84439; 84443; 84478; 84484; 85025; 85027; 85379; 85384; 87070; 87426; 93005; 93306; 93970; 94003; 94640; 97162; 97166; 99291; A9577; C1725; C9113; J0360; J1200; J1644; J1650; J1815; J1885; J1940; J2405; J2543; J2704; J2920; J3480; J3490; J7040; J7060; J7608; Q9967; A4315; G0480

== ENCOUNTER 2021-09-16 11:37 | Inpatient (IN) | payer OTHER ==
[~2021-09-16] VITALS: Ht 170.2 cm; Wt 117.5 kg
[~2021-09-16 11:37] MED LIST changes: +ASPI-1497 MT; +CLOP-31 MT; +COR12 MT; +GUAI5SYR3 MT; +GUAI600T26 MT; +IPRA3AMP9 NEB; -LEVO500T89 MT; -METO-539 MT
[2021-09-16 12:55] LABS: HEMATOCRIT. 31.4 % (36.0-48.0); HEMOGLOBIN. 10.4 g/dL (12.0-16.0); LYMPHOCYTES % 10.4 % (20.0-50.0); MEAN CORPUSCULAR HEMOGLOBIN 29.6 pg (28.0-32.0); MEAN CORPUSCULAR VOLUME 89.1 fL (81.0-99.0); MEAN PLATELET VOLUME 7.8 fl (7.4-10.4); MONOCYTES % 9.3 % (2.0-8.0); NEUTROPHILS % 76.3 % (40.0-76.0); PLATELET 210 x1000/uL (130-400); RED BLOOD CELL COUNT 3.53 mill/uL (4.2-5.4); RED CELL DISTRIBUTION WIDTH 17.1 % (11.6-14.6)
[2021-09-16 13:06] LABS: CHLORIDE 102 mEq/L (98-107)
[2021-09-16 16:20] LABS: CLARITY URINE CLEAR (CLEAR); COLOR URINE YELLOW (YELLOW); KETONES URINE NEGATIVE (NEGATIVE); LEUKOCYTE ESTERASE URINE NEGATIVE (NEGATIVE); NITRITE URINE NEGATIVE (NEGATIVE); OCCULT BLOOD URINE NEGATIVE (NEGATIVE); PROTEIN URINE NEGATIVE (NEGATIVE); SPECIFIC GRAVITY URINE 1.013 (1.005-1.030); UROBILINOGEN URINE 0.2 E.U./dL (0.2-1.0)
[2021-09-16] MEDS ORDERED: MORPHINE SULFATE 2 MG/ML CPJ (NOT FOR IM USE) IV PRN (16:30)
[2021-09-16] MEDS ORDERED: NALOXONE HCL 0.4MG/ML VIAL IV PRN (16:45)
[2021-09-17 02:30] VITALS: BP 166/80
[2021-09-17] MEDS: CLONIDINE 0.1MG TABLET PO PRN ×2 (03:38→08:39)
[2021-09-17] MEDS: MORPHINE SULFATE 2 MG/ML CPJ (NOT FOR IM USE) IV PRN ×3 (03:38→12:50)
[2021-09-17 04:00] VITALS: BP 166/80
[2021-09-17] MEDS ORDERED: DEXTROSE 50% WATER 50ML SYRINGE IV PRN (04:15)
[2021-09-17] MEDS: GUAIFENESIN 200MG/10ML SUGAR FREE UDC PO PRN (06:21)
[2021-09-17] MEDS: LEVOTHYROXINE SODIUM 50MCG TABLET PO SCH (06:22)
[2021-09-17] MEDS: GLIPIZIDE 5MG TABLET PO SCH (06:22)
[2021-09-17] MEDS: BLOOD SUGAR DIAGNOSTIC STRIP TEST SCH ×4 (06:26→21:13)
[2021-09-17 07:05] LABS: BASOPHILS % 0.2 % (0.0-2.0); EOSINOPHILS % 3.6 % (0.0-5.0); HEMOGLOBIN. 9.4 g/dL (12.0-16.0); LYMPHOCYTES % 12.3 % (20.0-50.0); MEAN CORPUSCULAR HEMOGLOBIN 29.8 pg (28.0-32.0); MEAN CORPUSCULAR VOLUME 89.2 fL (81.0-99.0); MONOCYTES % 10.8 % (2.0-8.0); NEUTROPHILS % 73.1 % (40.0-76.0); PLATELET 189 x1000/uL (130-400); RED BLOOD CELL COUNT 3.14 mill/uL (4.2-5.4); RED CELL DISTRIBUTION WIDTH 17.1 % (11.6-14.6)
[2021-09-17 07:17] LABS: CHLORIDE 106 mEq/L (98-107)
[2021-09-17] MEDS: INSULIN LISPRO 100 UNITS/ML SUBCUT SCH ×4 (07:48→21:16)
[2021-09-17 08:00] VITALS: BP 169/70
[2021-09-17] MEDS: GUAIFENESIN 600MG ER TABLET PO SCH ×2 (08:38→21:13)
[2021-09-17] MEDS: LOSARTAN POTASSIUM 50 MG TABLET PO SCH (08:38)
[2021-09-17] MEDS: PREDNISONE 20MG TABLET PO SCH (08:39)
[2021-09-17 11:08] LABS: BG BASE EXCESS 5.3 mmol/L (-2.0-2.0); BG CARBOXYHEMOGLOBIN 0.4 % (0.5-1.5); BG DEOXYHEMOGLOBIN 7.3 % (0.0-5.0); BG FRACTION INSPIRED OXYGEN 21; BG HCO3 ACT 29.5 mmol/L (22.0-26.0); BG METHEMOGLOBIN 0.3 % (0.0-1.5); BG OXYGEN SATURATION 92.6 % (92.0-98.5); BG PCO2 41.9 mmHg (35.0-45.0); BG PH 7.466 (7.350-7.450); BG PO2 63.1 mmHg (75.0-100.0); BG SAMPLE SITE RIGHT RADIAL; BG TOTAL HEMOGLOBIN 10.3 g/dL (12.0-18.0); BG VENT MODE ROOM AIR
[2021-09-17 12:00] VITALS: BP 155/67
[2021-09-17 12:01] LABS: INR 1.1; PROTHROMBIN TIME 11.4 sec (9.6-11.0)
[2021-09-17] MEDS: LEVOFLOXACIN 500MG PREMIX 100 ML IV SCH (15:02)
[2021-09-17 16:00] VITALS: BP 160/57
[2021-09-17] MEDS ORDERED: HYDRALAZINE 20MG/ML VIAL IV PRN (17:30)
[2021-09-17] MEDS: FUROSEMIDE 40MG TABLET PO SCH (18:02)
[2021-09-17 20:00] VITALS: BP 139/64
[2021-09-17] MEDS: ALPRAZOLAM 0.5 MG TABLET PO PRN (21:14)
[2021-09-17] MEDS: CARVEDILOL 6.25 MG TABLET PO SCH (21:14)
[2021-09-17] MEDS: TEMAZEPAM 15MG CAPSULE PO PRN (21:14)
[2021-09-17] MEDS: ATORVASTATIN CALCIUM 10MG TABLET PO SCH (21:15)
[2021-09-17] MEDS: INSULIN GLARGINE UD 100 UNITS/ML SYR SUBCUT SCH (21:16)
[2021-09-18] VITALS: BP 131/61
[2021-09-18 04:00] VITALS: BP 145/71
[2021-09-18 06:23] LABS: BASOPHILS % 0.3 % (0.0-2.0); EOSINOPHILS % 0.7 % (0.0-5.0); HEMOGLOBIN. 8.7 g/dL (12.0-16.0); LYMPHOCYTES % 7.7 % (20.0-50.0); MEAN CORPUSCULAR HEMOGLOBIN 29.9 pg (28.0-32.0); MEAN CORPUSCULAR VOLUME 89.1 fL (81.0-99.0); MONOCYTES % 8.7 % (2.0-8.0); NEUTROPHILS % 82.6 % (40.0-76.0); PLATELET 194 x1000/uL (130-400); RED BLOOD CELL COUNT 2.92 mill/uL (4.2-5.4); RED CELL DISTRIBUTION WIDTH 17.1 % (11.6-14.6)
[2021-09-18] MEDS: LEVOTHYROXINE SODIUM 50MCG TABLET PO SCH (06:26)
[2021-09-18] MEDS: GLIPIZIDE 5MG TABLET PO SCH (06:26)
[2021-09-18] MEDS: BLOOD SUGAR DIAGNOSTIC STRIP TEST SCH ×4 (06:26→20:42)
[2021-09-18] MEDS: MORPHINE SULFATE 2 MG/ML CPJ (NOT FOR IM USE) IV PRN (06:39)
[2021-09-18 06:40] LABS: CHLORIDE 104 mEq/L (98-107)
[2021-09-18] MEDS: INSULIN LISPRO 100 UNITS/ML SUBCUT SCH ×4 (07:50→20:42)
[2021-09-18 08:00] VITALS: BP 124/67
[2021-09-18] MEDS: PREDNISONE 20MG TABLET PO SCH (09:12)
[2021-09-18] MEDS: LOSARTAN POTASSIUM 50 MG TABLET PO SCH (09:12)
[2021-09-18] MEDS: GUAIFENESIN 600MG ER TABLET PO SCH ×2 (09:12→20:40)
[2021-09-18] MEDS: CARVEDILOL 6.25 MG TABLET PO SCH ×2 (09:13→20:40)
[2021-09-18] MEDS: FUROSEMIDE 40MG TABLET PO SCH (09:13)
[2021-09-18 12:00] VITALS: BP 130/68
[2021-09-18] MEDS: ALPRAZOLAM 0.5 MG TABLET PO PRN (12:19)
[2021-09-18] MEDS: LEVOFLOXACIN 500MG PREMIX 100 ML IV SCH (12:24)
[2021-09-18 16:00] VITALS: BP 136/66
[2021-09-18 20:00] VITALS: BP 162/72
[2021-09-18] MEDS: ACETAMINOPHEN 325MG TABLET PO PRN (20:40)
[2021-09-18] MEDS: ATORVASTATIN CALCIUM 10MG TABLET PO SCH (20:40)
[2021-09-18] MEDS: TEMAZEPAM 15MG CAPSULE PO PRN (21:59)
[2021-09-18] MEDS: INSULIN GLARGINE UD 100 UNITS/ML SYR SUBCUT SCH (21:59)
[2021-09-19] VITALS: BP 106/51
[2021-09-19] MEDS: ACETAMINOPHEN 325MG TABLET PO PRN ×2 (01:14→05:39)
[2021-09-19] MEDS: ALPRAZOLAM 0.5 MG TABLET PO PRN ×2 (02:13→12:29)
[2021-09-19 04:00] VITALS: BP 138/59
[2021-09-19] MEDS: GLIPIZIDE 5MG TABLET PO SCH (06:26)
[2021-09-19] MEDS: LEVOTHYROXINE SODIUM 50MCG TABLET PO SCH (06:26)
[2021-09-19] MEDS: BLOOD SUGAR DIAGNOSTIC STRIP TEST SCH ×3 (06:26→17:37)
[2021-09-19] MEDS: GUAIFENESIN 200MG/10ML SUGAR FREE UDC PO PRN ×3 (06:31→17:41)
[2021-09-19 06:43] LABS: CHLORIDE 103 mEq/L (98-107)
[2021-09-19 07:01] LABS: BASOPHILS % 0.2 % (0.0-2.0); EOSINOPHILS % 1.2 % (0.0-5.0); HEMATOCRIT. 28.5 % (36.0-48.0); HEMOGLOBIN. 9.8 g/dL (12.0-16.0); LYMPHOCYTES % 10.7 % (20.0-50.0); MEAN CORPUSCULAR HEMOGLOBIN 30.6 pg (28.0-32.0); MEAN CORPUSCULAR VOLUME 89.2 fL (81.0-99.0); MONOCYTES % 11.3 % (2.0-8.0); NEUTROPHILS % 76.6 % (40.0-76.0); PLATELET 214 x1000/uL (130-400); RED CELL DISTRIBUTION WIDTH 17.5 % (11.6-14.6)
[2021-09-19] MEDS: INSULIN LISPRO 100 UNITS/ML SUBCUT SCH ×3 (07:50→17:40)
[2021-09-19 07:57] VITALS: BP 161/62
[2021-09-19] MEDS: LOSARTAN POTASSIUM 50 MG TABLET PO SCH (08:32)
[2021-09-19] MEDS: FUROSEMIDE 40MG TABLET PO SCH (08:32)
[2021-09-19] MEDS: CARVEDILOL 6.25 MG TABLET PO SCH (08:33)
[2021-09-19] MEDS: GUAIFENESIN 600MG ER TABLET PO SCH (08:33)
[2021-09-19] MEDS: PREDNISONE 20MG TABLET PO SCH (08:33)
[2021-09-19] MEDS: CLONIDINE 0.1MG TABLET PO PRN ×2 (08:33→18:22)
[2021-09-19] MEDS ORDERED: HYDROCODONE/ACETAMINOPHEN 5/325MG TABLET PO PRN (08:45)
[2021-09-19] MEDS ORDERED: POTASSIUM CHLORIDE 20MEQ TABLET SR PO NR (11:30)
[2021-09-19 12:00] VITALS: BP 145/66
[2021-09-19] MEDS: LEVOFLOXACIN 500MG PREMIX 100 ML IV SCH (12:22)
[2021-09-19] MEDS ORDERED: ASPIRIN 81MG TABLET PO SCH (12:30)
[2021-09-19] MEDS: CLOPIDOGREL 75MG TABLET PO SCH ×2 (12:30→13:50)
[2021-09-19 16:00] VITALS: BP 178/73
[2021-09-19 20:08] VITALS: BP 158/67
[2021-09-19] MEDS ORDERED: ATORVASTATIN CALCIUM 40MG TABLET PO SCH (21:00)
== END 2021-09-19 20:30 | DRG 919 ==
LOC: ER 11:37 → EDBEDREQ 20:18 → EDBEDREQTM 21:17 → MICUSO 22:06 → 6WST 09-17 00:58
PROVIDERS: ADMIT Internal Medicine; ATTEND Internal Medicine
DX: M96.89 Other intraoperative and postprocedural complications and disorders of the musculoskeletal system (principal); E43 Unspecified severe protein-calorie malnutrition; I63.9 Cerebral infarction, unspecified; S22.42XA Multiple fractures of ribs, left side, initial encounter for closed fracture; E87.1 Hypo-osmolality and hyponatremia; Z68.41 Body mass index [BMI] 40.0-44.9, adult; I42.9 Cardiomyopathy, unspecified; I50.42 Chronic combined systolic (congestive) and diastolic (congestive) heart failure; E11.65 Type 2 diabetes mellitus with hyperglycemia; I25.10 Atherosclerotic heart disease of native coronary artery without angina pectoris; D64.9 Anemia, unspecified; Z20.822 Contact with and (suspected) exposure to COVID-19; I11.0 Hypertensive heart disease with heart failure; J44.9 Chronic obstructive pulmonary disease, unspecified; Y84.8 Other medical procedures as the cause of abnormal reaction of the patient, or of later complication, without mention of misadventure at the time of the procedure; Z86.73 Personal history of transient ischemic attack (TIA), and cerebral infarction without residual deficits; Z88.5 Allergy status to narcotic agent; Z91.012 Allergy to eggs; Z79.899 Other long term (current) drug therapy; Z79.82 Long term (current) use of aspirin; Z87.891 Personal history of nicotine dependence; Y92.89 Other specified places as the place of occurrence of the external cause; Z86.74 Personal history of sudden cardiac arrest; R91.8 Other nonspecific abnormal finding of lung field
CPT/HCPCS: 36415; 36600; 70551; 70552; 71045; 71250; 80048; 80053; 80061; 81003; 82375; 82805; 82962; 83036; 83605; 84484; 85025; 87426; 93005; 97162; 99285; A9577; J0360; J1815; J1956; J2270; J7512

== ENCOUNTER 2021-10-18 08:25 | Emergency (ER) | payer OTHER ==
[~2021-10-18] VITALS: Ht 170.2 cm; Wt 92.0 kg
[~2021-10-18 08:25] MED LIST changes: -CLOP-31 MT
[2021-10-18 09:12] LABS: HEMATOCRIT. 30.5 % (36.0-48.0); HEMOGLOBIN. 10.1 g/dL (12.0-16.0); MEAN CORPUSCULAR HEMOGLOBIN 31.1 pg (28.0-32.0); MEAN CORPUSCULAR VOLUME 93.7 fL (81.0-99.0); MEAN PLATELET VOLUME 8.2 fl (7.4-10.4); PLATELET 256 x1000/uL (130-400); RED BLOOD CELL COUNT 3.26 mill/uL (4.2-5.4); RED CELL DISTRIBUTION WIDTH 19.2 % (11.6-14.6)
[2021-10-18 09:18] LABS: CHLORIDE 108 mEq/L (98-107)
[2021-10-18 10:31] LABS: PLATELET ESTIMATE NORMAL
[2021-10-18] MEDS ORDERED: LEVOFLOXACIN 750MG PREMIX 150 ML IV ONE (11:00)
[2021-10-18] MEDS ORDERED: PIPERACILLIN/TAZ 3.375G PREMIX 50 ML IV ONE (11:00)
[2021-10-18] MEDS ORDERED: ASPIRIN 81MG TABLET PO ONE (17:45)
[2021-10-18] MEDS ORDERED: MORPHINE SULFATE 2 MG/ML CPJ (NOT FOR IM USE) IV NR (19:15)
[2021-10-18 22:00] VITALS: BP 175/71
== END 2021-10-18 22:30 ==
LOC: ER 08:25 → EDBEDREQTM 14:59 → EDBEDREQ 14:59 → CANBEDREQ 19:09 → ER 22:30
DX: J18.9 Pneumonia, unspecified organism (principal); R77.8 Other specified abnormalities of plasma proteins; E11.9 Type 2 diabetes mellitus without complications; I10 Essential (primary) hypertension; Z86.73 Personal history of transient ischemic attack (TIA), and cerebral infarction without residual deficits; Z90.710 Acquired absence of both cervix and uterus; Z79.899 Other long term (current) drug therapy; Z88.5 Allergy status to narcotic agent; Z20.822 Contact with and (suspected) exposure to COVID-19
CPT/HCPCS: 36415; 71045; 80053; 82962; 83880; 84484; 85025; 87426; 93005; 96365; 96367; 96375; 99285; J1956; J2270; J2543

== ENCOUNTER 2022-01-14 06:13 | Emergency (ER) | payer BC, MEDICARE, OTHER ==
[~2022-01-14] VITALS: Ht 170.2 cm; Wt 105.4 kg
[~2022-01-14 06:13] MED LIST changes: +CLON-457 MT; +DOXA2TAB2 PO; +FURO40TA5 PO; +LEVO25TA2 MT; -LEVO50TA MT
[2022-01-14 08:10] LABS: BASOPHILS % 0.9 % (0.0-2.0); EOSINOPHILS % 1.7 % (0.0-5.0); HEMATOCRIT. 26.5 % (36.0-48.0); HEMOGLOBIN. 8.8 g/dL (12.0-16.0); LYMPHOCYTES % 10.5 % (20.0-50.0); MEAN CORPUSCULAR VOLUME 93.8 fL (81.0-99.0); MEAN PLATELET VOLUME 8.4 fl (7.4-10.4); MONOCYTES % 5.5 % (2.0-8.0); NEUTROPHILS % 81.4 % (40.0-76.0); PLATELET 260 x1000/uL (130-400); RED BLOOD CELL COUNT 2.83 mill/uL (4.2-5.4); RED CELL DISTRIBUTION WIDTH 17.4 % (11.6-14.6)
[2022-01-14 08:46] LABS: CLARITY URINE CLEAR (CLEAR); COLOR URINE YELLOW (YELLOW); KETONES URINE NEGATIVE (NEGATIVE); LEUKOCYTE ESTERASE URINE 1+ (NEGATIVE); NITRITE URINE NEGATIVE (NEGATIVE); OCCULT BLOOD URINE NEGATIVE (NEGATIVE); PH URINE 6.5 (4.5-8.0); PROTEIN URINE NEGATIVE (NEGATIVE); SPECIFIC GRAVITY URINE 1.007 (1.005-1.030); UROBILINOGEN URINE 0.2 E.U./dL (0.2-1.0)
[2022-01-14 09:43] LABS: CHLORIDE 104 mEq/L (98-107)
[2022-01-14] MEDS ORDERED: LEVOFLOXACIN 250MG TABLET PO ONE (10:00)
[2022-01-14] MEDS ORDERED: LEVO750T46 PO (12:34)
[2022-01-14 13:05] VITALS: BP 157/67
== END 2022-01-14 13:14 | disposition home or self-care (01) ==
LOC: ER 06:13 → CANBEDREQ 17:46
DX: N39.0 Urinary tract infection, site not specified (principal); C34.90 Malignant neoplasm of unspecified part of unspecified bronchus or lung; C79.31 Secondary malignant neoplasm of brain; R11.0 Nausea; E11.9 Type 2 diabetes mellitus without complications; I10 Essential (primary) hypertension; Z79.4 Long term (current) use of insulin; Z79.82 Long term (current) use of aspirin; Z92.21 Personal history of antineoplastic chemotherapy; Z20.822 Contact with and (suspected) exposure to COVID-19; Z90.710 Acquired absence of both cervix and uterus; Z91.012 Allergy to eggs; Z96.659 Presence of unspecified artificial knee joint
CPT/HCPCS: 36415; 71045; 80053; 81003; 83605; 84145; 85025; 87040; 87086; 87426; 93005; 99285; C9803

== ENCOUNTER 2022-01-15 06:35 | Emergency (ER) | payer BC ==
[~2022-01-15] VITALS: Ht 170.2 cm; Wt 104.0 kg
[~2022-01-15 06:35] MED LIST changes: +LEVO750T46 PO
[2022-01-15 08:58] LABS: BASOPHILS % 0.4 % (0.0-2.0); EOSINOPHILS % 0.9 % (0.0-5.0); HEMATOCRIT. 27.9 % (36.0-48.0); LYMPHOCYTES % 7.7 % (20.0-50.0); MEAN CORPUSCULAR HEMOGLOBIN 30.7 pg (28.0-32.0); MEAN CORPUSCULAR VOLUME 94.7 fL (81.0-99.0); MEAN PLATELET VOLUME 7.8 fl (7.4-10.4); MONOCYTES % 4.9 % (2.0-8.0); NEUTROPHILS % 86.1 % (40.0-76.0); PLATELET 267 x1000/uL (130-400); RED BLOOD CELL COUNT 2.94 mill/uL (4.2-5.4); RED CELL DISTRIBUTION WIDTH 16.8 % (11.6-14.6)
[2022-01-15 09:06] LABS: CHLORIDE 103 mEq/L (98-107)
[2022-01-15 09:08] LABS: CLARITY URINE CLEAR (CLEAR); COLOR URINE YELLOW (YELLOW); KETONES URINE 1+ (NEGATIVE); LEUKOCYTE ESTERASE URINE TRACE (NEGATIVE); NITRITE URINE NEGATIVE (NEGATIVE); OCCULT BLOOD URINE NEGATIVE (NEGATIVE); PROTEIN URINE NEGATIVE (NEGATIVE); SPECIFIC GRAVITY URINE 1.016 (1.005-1.030); UROBILINOGEN URINE 0.2 E.U./dL (0.2-1.0)
[2022-01-15] MEDS ORDERED: IOHEXOL-350 100 ML BOTTLE ONE (13:40)
[2022-01-15] MEDS ORDERED: DIPHENHYDRAMINE 25MG CAPSULE PO ONE (13:45)
[2022-01-15 17:21] VITALS: BP 145/70
== END 2022-01-15 17:23 | disposition home or self-care (01) ==
LOC: ER 06:35
DX: R06.02 Shortness of breath (principal); R11.0 Nausea; Z85.6 Personal history of leukemia; E11.9 Type 2 diabetes mellitus without complications; I10 Essential (primary) hypertension; Z79.899 Other long term (current) drug therapy; Z20.822 Contact with and (suspected) exposure to COVID-19
CPT/HCPCS: 36415; 71045; 71275; 80053; 81003; 82962; 83605; 83880; 84484; 85025; 85379; 87426; 93005; 99285; C9803; Q0163; Q9967

== ENCOUNTER 2023-06-18 02:15 | Inpatient (IN) | payer BC, MEDICARE ==
[~2023-06-18] VITALS: Ht 165.1 cm; Wt 108.4 kg
[~2023-06-18 02:15] MED LIST changes: +ALPR-339 PO; +AMLO5TAB88 PO; -CALCIUM PO; -CLON-457 MT; +CLON-493 MT; +DABR75CA MT; -DOXA2TAB2 PO; +FAMO-135 PO; -GLIP5TAB12 PO; -GUAI5SYR3 MT; -GUAI600T26 MT; +HYDR-4135 MT; +INSU100I13 SQ; -IPRA3AMP9 NEB; -LEVO25TA2 MT; +LEVO50TA8 PO; -LEVO750T46 PO; -LOSA50TA3 MT; +MORP15TA54 PO; -P20 PO; +POTA-205 MT; +RIVA20TA MT; +TRAM2TAB PO; +VALS160T28 PO; +XAR15 MT; +[UNRECOGNIZED DRUG - CODE] PO
[2023-06-18 03:01] VITALS: O2SAT 100
[2023-06-18 04:56] LABS: BASOPHILS % 0.3 % (0.0-2.0); DIFFERENTIAL COMMENT 0; HEMATOCRIT. 32.8 % (36.0-48.0); HEMOGLOBIN. 9.5 g/dL (12.0-16.0); LYMPHOCYTES % 11.4 % (20.0-50.0); MEAN CORPUSCULAR HEMOGLOBIN 29.5 pg (28.0-32.0); MEAN CORPUSCULAR HGB CONC 29.2 g/dL (31.0-37.0); MEAN CORPUSCULAR VOLUME 101.2 fL (81.0-99.0); MEAN PLATELET VOLUME 8.5 fl (7.4-10.4); MONOCYTES % 12.3 % (2.0-8.0); PLATELET 260 x1000/uL (130-400); RED BLOOD CELL COUNT 3.24 mill/uL (4.2-5.4); RED CELL DISTRIBUTION WIDTH 20.4 % (11.6-14.6); WHITE BLOOD COUNT 12.4 x1000/uL (4.5-11.0)
[2023-06-18] MEDS ORDERED: PIPERACILLIN/TAZ 3.375G PREMIX 50 ML IV ONE (05:00)
[2023-06-18] MEDS ORDERED: VANCOMYCIN 1G PREMIX 200 ML IV ONE (05:00)
[2023-06-18 05:43] LABS: LACTIC ACID 4.9 mmol/L (0.4-2.0)
[2023-06-18 07:45] LABS: ALANINE AMINOTRANSFERASE 16 IU/L (10-49); ALBUMIN 2.7 g/dL (3.2-4.8); ASPARTATE AMINOTRANSFERASE 59 IU/L (<34); BILIRUBIN TOTAL 0.5 mg/dL (0.1-1.0); CALCIUM 7.5 mg/dL (8.7-10.4); CARBON DIOXIDE 19 mEq/L (21-32); CHLORIDE 103 mEq/L (98-107); CREATININE 0.9 mg/dL (0.6-1.0); GLUCOSE 177 mg/dL (70-105); PROTEIN TOTAL 6.8 g/dL (6.0-8.3); SODIUM 136 mEq/L (136-145); UREA NITROGEN BLOOD 7 mg/dL (9-23)
[2023-06-18 07:46] LABS: TROPONIN I HIGH SENSITIVITY 767 ng/L (3.0-34)
[2023-06-18] MEDS ORDERED: ADENOSINE 3 MG/ML 2ML VIAL IV ONE (08:43)
[2023-06-18] MEDS ORDERED: SODIUM CHLORIDE 0.9% 1,000 ML IV ONE ×2 (10:45→18:15)
[2023-06-18] MEDS ORDERED: SODIUM CHLORIDE 0.9% 500 ML IV ONE (12:15)
[2023-06-18] MEDS ORDERED: ONDANSETRON HCL 4MG/2ML INJ IV PRN (12:30)
[2023-06-18 12:42] LABS: INR 1.5; PROTHROMBIN TIME 15.5 sec (9.6-11.0)
[2023-06-18] MEDS ORDERED: IOHEXOL-350 100 ML BOTTLE ONE (13:50)
[2023-06-18] MEDS ORDERED: PIPERACILLIN/TAZ 3.375G PREMIX 50 ML IV SCH (14:00)
[2023-06-18 14:58] LABS: TROPONIN I HIGH SENSITIVITY 1629 ng/L (3.0-34)
[2023-06-18] MEDS ORDERED: DIGOXIN 500MCG/2ML AMP IV NR ×2 (15:00→22:45)
[2023-06-18] MEDS ORDERED: AMIODARONE HCL 150 MG in DEXT 5% WATER 100 ML IV ONE (15:15)
[2023-06-18] MEDS ORDERED: AMIODARONE 150MG/100ML PREMIX 100 ML IV NR (16:00)
[2023-06-18 17:02] LABS: CALCIUM 6.8 mg/dL (8.7-10.4); CARBON DIOXIDE 19 mEq/L (21-32); CHLORIDE 106 mEq/L (98-107); GLUCOSE 151 mg/dL (70-105); POTASSIUM 3.4 mEq/L (3.5-5.1); SODIUM 139 mEq/L (136-145); THYROID STIMULATING HORMONE 1.09 uIU/mL (0.55-4.78); UREA NITROGEN BLOOD 9 mg/dL (9-23)
[2023-06-18] MEDS ORDERED: SODIUM CHLORIDE 0.9% 100 ML IV ONE (18:00)
[2023-06-18] MEDS ORDERED: POTASSIUM CHLORIDE 20MEQ TABLET SR PO NR (19:30)
[2023-06-18] MEDS ORDERED: MAGNESIUM 4 G PREMIX 100 ML IV NR (20:00)
[2023-06-18] MEDS: DEXT 5%/0.45% NACL 1000ML 1,000 ML IV SCH (21:16)
[2023-06-18] MEDS ORDERED: ADENOSINE 3 MG/ML 2ML VIAL IV NR ×2 (21:31→21:45)
[2023-06-18] MEDS ORDERED: PIPERACILLIN/TAZOBACTAM 3.375 G in DEXTROSE 5% WATER 50 ML IV SCH (22:00)
[2023-06-18] MEDS: ENOXAPARIN 80MG/0.8ML SYR SUBCUT SCH (22:58)
[2023-06-18] MEDS ORDERED: METOPROLOL TARTRATE 5MG/5ML VIAL IV SCH (23:30)
[2023-06-19] MEDS ORDERED: DIGOXIN 500MCG/2ML AMP IV PRN (05:00)
[2023-06-19] MEDS ORDERED: VANCOMYCIN 1.25GM PMX (XELLIA) 250 ML IV SCH (06:00)
[2023-06-19] MEDS: PIPERACILLIN/TAZOBACTAM 3.375 G in DEXTROSE 5% WATER 50 ML IV SCH ×3 (08:00→21:33)
[2023-06-19] MEDS: ENOXAPARIN 80MG/0.8ML SYR SUBCUT SCH ×2 (11:00→23:55)
[2023-06-19] MEDS: LISINOPRIL 5MG TABLET PO SCH (11:30)
[2023-06-19] MEDS: METOPROLOL SUCCINATE 50MG ER TABLET PO SCH (11:30)
[2023-06-19] MEDS: DEXT 5%/0.45% NACL 1000ML 1,000 ML IV SCH (15:58)
[2023-06-19 20:00] VITALS: BP_SYST 119; BP_SYST 143; BP_DIAS 61; BP_DIAS 85; PULSE 106; PULSE 125; RESP 18; RESP 25; TEMP 98.5
[2023-06-19] MEDS: ATORVASTATIN CALCIUM 40MG TABLET PO SCH (21:34)
[2023-06-19 22:00] VITALS: BP 118/59; PULSE 115; RESP 20
[2023-06-20] VITALS (11 sets, daily range): BP systolic 70–118; BP diastolic 42–62; PULSE 100–110; RESP 18–29; TEMP 97.2–98.7
[2023-06-20 00:19] LABS: BASOPHILS % 0.4 % (0.0-2.0); EOSINOPHILS % 2.1 % (0.0-5.0); HEMATOCRIT. 29.5 % (36.0-48.0); LYMPHOCYTES % 9.9 % (20.0-50.0); MEAN CORPUSCULAR HEMOGLOBIN 29.9 pg (28.0-32.0); MEAN CORPUSCULAR HGB CONC 30.4 g/dL (31.0-37.0); MEAN CORPUSCULAR VOLUME 98.3 fL (81.0-99.0); MEAN PLATELET VOLUME 8.8 fl (7.4-10.4); MONOCYTES % 9.9 % (2.0-8.0); NEUTROPHILS % 77.7 % (40.0-76.0); PLATELET 215 x1000/uL (130-400); RED CELL DISTRIBUTION WIDTH 19.3 % (11.6-14.6)
[2023-06-20 00:31] LABS: ALANINE AMINOTRANSFERASE 53 IU/L (10-49); ALBUMIN 2.5 g/dL (3.2-4.8); ASPARTATE AMINOTRANSFERASE 140 IU/L (<34); BILIRUBIN TOTAL 0.3 mg/dL (0.1-1.0); CALCIUM 7.6 mg/dL (8.7-10.4); CARBON DIOXIDE 19 mEq/L (21-32); CHLORIDE 109 mEq/L (98-107); CREATININE 0.6 mg/dL (0.6-1.0); GLUCOSE 130 mg/dL (70-105); POTASSIUM 3.3 mEq/L (3.5-5.1); SODIUM 140 mEq/L (136-145); UREA NITROGEN BLOOD 7 mg/dL (9-23)
[2023-06-20 00:34] LABS: TROPONIN I HIGH SENSITIVITY 4040 ng/L (3.0-34)
[2023-06-20] MEDS: DEXT 5%/0.45% NACL 1000ML 1,000 ML IV SCH (05:52)
[2023-06-20] MEDS: PIPERACILLIN/TAZOBACTAM 3.375 G in DEXTROSE 5% WATER 50 ML IV SCH ×3 (05:52→21:06)
[2023-06-20] MEDS ORDERED: VANCOMYCIN 1250MG in DEXTROSE 5% WATER 250ML IV SCH (06:00)
[2023-06-20 07:03] LABS: BASOPHILS % 0.3 % (0.0-2.0); EOSINOPHILS % 2.1 % (0.0-5.0); HEMATOCRIT. 28.5 % (36.0-48.0); LYMPHOCYTES % 10.7 % (20.0-50.0); MEAN CORPUSCULAR HEMOGLOBIN 30.1 pg (28.0-32.0); MEAN CORPUSCULAR HGB CONC 31.6 g/dL (31.0-37.0); MEAN CORPUSCULAR VOLUME 95.1 fL (81.0-99.0); MEAN PLATELET VOLUME 8.7 fl (7.4-10.4); MONOCYTES % 9.1 % (2.0-8.0); NEUTROPHILS % 77.8 % (40.0-76.0); PLATELET 230 x1000/uL (130-400); RED CELL DISTRIBUTION WIDTH 19.2 % (11.6-14.6); WHITE BLOOD COUNT 8.4 x1000/uL (4.5-11.0)
[2023-06-20 07:22] LABS: CARBON DIOXIDE 20 mEq/L (21-32); CHLORIDE 108 mEq/L (98-107); CREATININE 0.7 mg/dL (0.6-1.0); GLUCOSE 119 mg/dL (70-105); POTASSIUM 3.4 mEq/L (3.5-5.1); SODIUM 141 mEq/L (136-145); UREA NITROGEN BLOOD 8 mg/dL (9-23); VANCOMYCIN TROUGH 8.4 ug/mL (5.0-10.0)
[2023-06-20] MEDS: METOPROLOL SUCCINATE 50MG ER TABLET PO SCH (08:45)
[2023-06-20] MEDS: LISINOPRIL 5MG TABLET PO SCH (08:45)
[2023-06-20] MEDS ORDERED: POTASSIUM CHLORIDE 20MEQ TABLET SR PO NR (11:00)
[2023-06-20] MEDS: ENOXAPARIN 80MG/0.8ML SYR SUBCUT SCH ×2 (11:27→22:09)
[2023-06-20] MEDS ORDERED: ALPRAZOLAM 0.25 MG TABLET PO NR (15:00)
[2023-06-20] MEDS ORDERED: GADOTERATE MEGLUMINE 5 MMOL/10 ML VIAL IV ONE (16:44)
[2023-06-20] MEDS: ATORVASTATIN CALCIUM 40MG TABLET PO SCH (21:05)
[2023-06-21] VITALS (12 sets, daily range): BP systolic 97–131; BP diastolic 56–71; PULSE 84–108; RESP 14–27; TEMP 97–98.5
[2023-06-21] MEDS: VANCOMYCIN 1G PREMIX 200 ML IV SCH ×2 (00:21→17:47)
[2023-06-21] MEDS: PIPERACILLIN/TAZOBACTAM 3.375 G in DEXTROSE 5% WATER 50 ML IV SCH ×3 (05:35→21:28)
[2023-06-21 06:56] LABS: CHOLESTEROL 69 mg/dL (<200); HDL CHOLESTEROL < 20 mg/dL (>65); LDL CHOLESTEROL 36 mg/dL (5-100); TRIGLYCERIDE 122 mg/dL (0-150)
[2023-06-21] MEDS: METOPROLOL SUCCINATE 50MG ER TABLET PO SCH (09:39)
[2023-06-21] MEDS ORDERED: ALPRAZOLAM 0.5 MG TABLET PO PRN (10:45)
[2023-06-21] MEDS: GUAIFENESIN-DM 200MG-20MG/10ML UDC PO PRN ×2 (11:12→19:32)
[2023-06-21] MEDS: ENOXAPARIN 80MG/0.8ML SYR SUBCUT SCH ×2 (11:13→22:14)
[2023-06-21] MEDS: LISINOPRIL 5MG TABLET PO SCH (11:14)
[2023-06-21 17:52] LABS: BASOPHILS % 0.2 % (0.0-2.0); EOSINOPHILS % 3.7 % (0.0-5.0); HEMATOCRIT. 24.5 % (36.0-48.0); HEMOGLOBIN. 7.6 g/dL (12.0-16.0); LYMPHOCYTES % 13.9 % (20.0-50.0); MEAN CORPUSCULAR HEMOGLOBIN 28.6 pg (28.0-32.0); MEAN CORPUSCULAR HGB CONC 30.8 g/dL (31.0-37.0); MEAN CORPUSCULAR VOLUME 92.7 fL (81.0-99.0); MEAN PLATELET VOLUME 8.6 fl (7.4-10.4); MONOCYTES % 10.3 % (2.0-8.0); NEUTROPHILS % 71.9 % (40.0-76.0); PLATELET 205 x1000/uL (130-400); RED BLOOD CELL COUNT 2.64 mill/uL (4.2-5.4); WHITE BLOOD COUNT 5.3 x1000/uL (4.5-11.0)
[2023-06-21 18:28] LABS: CALCIUM 7.5 mg/dL (8.7-10.4); CARBON DIOXIDE 19 mEq/L (21-32); CHLORIDE 108 mEq/L (98-107); CREATININE 0.6 mg/dL (0.6-1.0); GLUCOSE 161 mg/dL (70-105); POTASSIUM 2.9 mEq/L (3.5-5.1); SODIUM 137 mEq/L (136-145); UREA NITROGEN BLOOD 6 mg/dL (9-23)
[2023-06-21] MEDS: ATORVASTATIN CALCIUM 40MG TABLET PO SCH (21:28)
[2023-06-21] MEDS: ACETAMINOPHEN 325MG TABLET PO PRN (22:13)
[2023-06-22] VITALS (12 sets, daily range): BP systolic 66–126; BP diastolic 51–94; PULSE 77–117; RESP 18–32; TEMP 97.3–98.8
[2023-06-22] MEDS: KCL 20MEQ/100ML PREMIX 100 ML IV SCH ×2 (00:27→02:46)
[2023-06-22] MEDS: DEXT 5%/0.45% NACL 1000ML 1,000 ML IV SCH (03:45)
[2023-06-22] MEDS: PIPERACILLIN/TAZOBACTAM 3.375 G in DEXTROSE 5% WATER 50 ML IV SCH ×3 (05:08→22:11)
[2023-06-22 07:57] LABS: CALCIUM 7.9 mg/dL (8.7-10.4); CARBON DIOXIDE 17 mEq/L (21-32); CHLORIDE 107 mEq/L (98-107); CREATININE 0.8 mg/dL (0.6-1.0); GLUCOSE 127 mg/dL (70-105); SODIUM 136 mEq/L (136-145)
[2023-06-22 07:58] LABS: UREA NITROGEN BLOOD < 5 mg/dL (9-23)
[2023-06-22] MEDS: METOPROLOL SUCCINATE 50MG ER TABLET PO SCH (08:23)
[2023-06-22] MEDS: LISINOPRIL 5MG TABLET PO SCH (08:23)
[2023-06-22] MEDS: ENOXAPARIN 80MG/0.8ML SYR SUBCUT SCH ×2 (12:27→22:10)
[2023-06-22] MEDS: VANCOMYCIN 1G PREMIX 200 ML IV SCH (12:27)
[2023-06-22 12:38] LABS: BASOPHILS % 0.3 % (0.0-2.0); EOSINOPHILS % 3.7 % (0.0-5.0); HEMATOCRIT. 27.9 % (36.0-48.0); HEMOGLOBIN. 8.8 g/dL (12.0-16.0); LYMPHOCYTES % 11.1 % (20.0-50.0); MEAN CORPUSCULAR HEMOGLOBIN 29.3 pg (28.0-32.0); MEAN CORPUSCULAR HGB CONC 31.5 g/dL (31.0-37.0); MEAN PLATELET VOLUME 8.6 fl (7.4-10.4); MONOCYTES % 12.2 % (2.0-8.0); NEUTROPHILS % 72.7 % (40.0-76.0); PLATELET 226 x1000/uL (130-400); RED CELL DISTRIBUTION WIDTH 18.5 % (11.6-14.6); WHITE BLOOD COUNT 6.7 x1000/uL (4.5-11.0)
[2023-06-22] MEDS: ATORVASTATIN CALCIUM 40MG TABLET PO SCH (22:08)
[2023-06-22] MEDS: LATANOPROST 0.005% OPHTH DROPS 2.5ML BOTHEYE SCH (22:12)
[2023-06-23] VITALS (13 sets, daily range): BP systolic 91–135; BP diastolic 56–102; PULSE 106–119; RESP 16–28; TEMP 96.8–97.5
[2023-06-23 04:10] LABS: CALCIUM 7.6 mg/dL (8.7-10.4); CREATININE 1.3 mg/dL (0.6-1.0); POTASSIUM 2.9 mEq/L (3.5-5.1)
[2023-06-23] MEDS: DEXT 5%/0.45% NACL 1000ML 1,000 ML IV SCH (05:11)
[2023-06-23] MEDS: VANCOMYCIN 1G PREMIX 200 ML IV SCH (05:12)
[2023-06-23] MEDS: PIPERACILLIN/TAZOBACTAM 3.375 G in DEXTROSE 5% WATER 50 ML IV SCH ×2 (05:12→15:36)
[2023-06-23] MEDS ORDERED: SODIUM BICARBONATE 8.4% 1 MEQ/ML 50ML SYR IV NR (07:45)
[2023-06-23] MEDS ORDERED: DEXTROSE 50% WATER 50ML SYRINGE IV PRN (07:45)
[2023-06-23] MEDS ORDERED: POTASSIUM CHLORIDE 20MEQ/PACKET PO NR ×2 (07:45→10:00)
[2023-06-23] MEDS: INSULIN LISPRO 100 UNITS/ML SUBCUT SCH ×4 (08:00→21:00)
[2023-06-23] MEDS ORDERED: LIDOCAINE HCL 1% 10 MG/ML 10ML VIAL ONE (08:17)
[2023-06-23] MEDS ORDERED: MAGNESIUM 2 G PREMIX 50 ML IV NR ×2 (08:30→17:00)
[2023-06-23] MEDS: METOPROLOL SUCCINATE 50MG ER TABLET PO SCH (08:31)
[2023-06-23] MEDS: LISINOPRIL 5MG TABLET PO SCH (08:32)
[2023-06-23 11:13] LABS: HEMATOCRIT. 26.6 % (36.0-48.0); HEMOGLOBIN. 8.6 g/dL (12.0-16.0); MEAN CORPUSCULAR HEMOGLOBIN 29.2 pg (28.0-32.0); MEAN CORPUSCULAR HGB CONC 32.2 g/dL (31.0-37.0); MEAN CORPUSCULAR VOLUME 90.8 fL (81.0-99.0); MEAN PLATELET VOLUME 8.8 fl (7.4-10.4); PLATELET 235 x1000/uL (130-400); RED BLOOD CELL COUNT 2.93 mill/uL (4.2-5.4); RED CELL DISTRIBUTION WIDTH 18.7 % (11.6-14.6); WHITE BLOOD COUNT 7.9 x1000/uL (4.5-11.0)
[2023-06-23 11:21] LABS: DIFFERENTIAL COMMENT 1
[2023-06-23] MEDS: ACETAMINOPHEN 325MG TABLET PO PRN (11:31)
[2023-06-23] MEDS: ENOXAPARIN 80MG/0.8ML SYR SUBCUT SCH (11:32)
[2023-06-23] MEDS: BLOOD SUGAR DIAGNOSTIC STRIP TEST SCH ×3 (11:33→21:00)
[2023-06-23 13:30] LABS: POTASSIUM 3.3 mEq/L (3.5-5.1)
[2023-06-23] MEDS: PANTOPRAZOLE SODIUM 40 MG/VIAL IV SCH (16:07)
[2023-06-23 18:11] LABS: ANISOCYTOSIS 1+; PLATELET ESTIMATE NORMAL
[2023-06-23 18:15] LABS: OVALOCYTES 1+
[2023-06-23 23:07] LABS: IRON 17 ug/dL (50-170); TOTAL IRON BINDING CAPACITY 217 ug/dl (250-425)
[2023-06-23] MEDS: ENOXAPARIN 100MG/ML SYR SUBCUT SCH (23:43)
[2023-06-23] MEDS: ATORVASTATIN CALCIUM 40MG TABLET PO SCH (23:43)
[2023-06-23] MEDS: LATANOPROST 0.005% OPHTH DROPS 2.5ML BOTHEYE SCH (23:45)
[2023-06-24] VITALS (11 sets, daily range): BP systolic 98–134; BP diastolic 60–80; PULSE 100–120; RESP 19–30; TEMP 96.3–97.9
[2023-06-24] MEDS: DEXT 5%/0.45% NACL 1000ML 1,000 ML IV SCH ×2 (06:12→09:35)
[2023-06-24 06:43] LABS: BASOPHILS % 0.4 % (0.0-2.0); EOSINOPHILS % 3.2 % (0.0-5.0); HEMATOCRIT. 25.8 % (36.0-48.0); LYMPHOCYTES % 8.6 % (20.0-50.0); MEAN CORPUSCULAR HEMOGLOBIN 29.1 pg (28.0-32.0); MEAN CORPUSCULAR VOLUME 93.8 fL (81.0-99.0); MEAN PLATELET VOLUME 8.5 fl (7.4-10.4); MONOCYTES % 14.1 % (2.0-8.0); NEUTROPHILS % 73.7 % (40.0-76.0); PLATELET 239 x1000/uL (130-400); RED BLOOD CELL COUNT 2.75 mill/uL (4.2-5.4); RED CELL DISTRIBUTION WIDTH 19.5 % (11.6-14.6); WHITE BLOOD COUNT 8.6 x1000/uL (4.5-11.0)
[2023-06-24] MEDS: BLOOD SUGAR DIAGNOSTIC STRIP TEST SCH ×4 (07:30→20:31)
[2023-06-24] MEDS: METOPROLOL SUCCINATE 50MG ER TABLET PO SCH (07:36)
[2023-06-24 07:50] LABS: CALCIUM 8.1 mg/dL (8.7-10.4); CREATININE 1.6 mg/dL (0.6-1.0); POTASSIUM 3.4 mEq/L (3.5-5.1)
[2023-06-24] MEDS: INSULIN LISPRO 100 UNITS/ML SUBCUT SCH ×4 (08:00→20:31)
[2023-06-24 08:16] LABS: FERRITIN 2723 ng/mL (10-291)
[2023-06-24 08:56] LABS: VITAMIN B12 SERUM > 2000 pg/mL (211-911)
[2023-06-24] MEDS: LISINOPRIL 5MG TABLET PO SCH (09:00)
[2023-06-24] MEDS: PANTOPRAZOLE SODIUM 40 MG/VIAL IV SCH (09:30)
[2023-06-24] MEDS: ENOXAPARIN 100MG/ML SYR SUBCUT SCH ×2 (09:34→20:50)
[2023-06-24] MEDS ORDERED: POTASSIUM CHLORIDE 20MEQ/PACKET NG NR (10:00)
[2023-06-24] MEDS: ATORVASTATIN CALCIUM 40MG TABLET PO SCH (20:50)
[2023-06-24] MEDS: LATANOPROST 0.005% OPHTH DROPS 2.5ML BOTHEYE SCH (21:00)
[2023-06-25] VITALS (11 sets, daily range): BP systolic 87–129; BP diastolic 43–77; PULSE 103–126; RESP 19–28; TEMP 97.1–97.9
[2023-06-25] MEDS: BLOOD SUGAR DIAGNOSTIC STRIP TEST SCH ×4 (06:33→21:30)
[2023-06-25] MEDS: INSULIN LISPRO 100 UNITS/ML SUBCUT SCH ×4 (08:00→21:00)
[2023-06-25 08:33] LABS: CALCIUM 8.3 mg/dL (8.7-10.4); CREATININE 1.3 mg/dL (0.6-1.0); POTASSIUM 3.7 mEq/L (3.5-5.1)
[2023-06-25 09:42] LABS: HEMOGLOBIN. 7.2 g/dL (12.0-16.0); MEAN CORPUSCULAR HEMOGLOBIN 28.7 pg (28.0-32.0); MEAN CORPUSCULAR HGB CONC 31.3 g/dL (31.0-37.0); MEAN CORPUSCULAR VOLUME 91.5 fL (81.0-99.0); MEAN PLATELET VOLUME 8.6 fl (7.4-10.4); PLATELET 287 x1000/uL (130-400); RED BLOOD CELL COUNT 2.51 mill/uL (4.2-5.4); RED CELL DISTRIBUTION WIDTH 19.3 % (11.6-14.6); WHITE BLOOD COUNT 8.9 x1000/uL (4.5-11.0)
[2023-06-25 09:45] LABS: DIFFERENTIAL COMMENT 1
[2023-06-25] MEDS: PANTOPRAZOLE SODIUM 40 MG/VIAL IV SCH (10:46)
[2023-06-25] MEDS: METOPROLOL SUCCINATE 50MG ER TABLET PO SCH (10:47)
[2023-06-25] MEDS: LISINOPRIL 5MG TABLET PO SCH (10:47)
[2023-06-25] MEDS: ENOXAPARIN 100MG/ML SYR SUBCUT SCH ×2 (10:48→21:15)
[2023-06-25] MEDS: DEXT 5%/0.45% NACL 1000ML 1,000 ML IV SCH (11:45)
[2023-06-25] MEDS: GUAIFENESIN-DM 200MG-20MG/10ML UDC PO PRN (15:49)
[2023-06-25 19:21] LABS: PLATELET ESTIMATE NORMAL
[2023-06-25 19:22] LABS: ANISOCYTOSIS 1+
[2023-06-25] MEDS: ATORVASTATIN CALCIUM 40MG TABLET PO SCH (21:15)
[2023-06-25] MEDS: LATANOPROST 0.005% OPHTH DROPS 2.5ML BOTHEYE SCH (21:15)
[2023-06-26] VITALS (13 sets, daily range): BP systolic 114–142; BP diastolic 64–85; PULSE 101–123; RESP 21–34; TEMP 97.5–98.7
[2023-06-26] MEDS: BLOOD SUGAR DIAGNOSTIC STRIP TEST SCH ×4 (07:30→21:00)
[2023-06-26] MEDS: DEXT 5%/0.45% NACL 1000ML 1,000 ML IV SCH ×3 (07:45→20:16)
[2023-06-26] MEDS: INSULIN LISPRO 100 UNITS/ML SUBCUT SCH ×4 (08:00→21:00)
[2023-06-26] MEDS: METOPROLOL SUCCINATE 50MG ER TABLET PO SCH (09:53)
[2023-06-26] MEDS: LISINOPRIL 5MG TABLET PO SCH (09:53)
[2023-06-26] MEDS: ENOXAPARIN 100MG/ML SYR SUBCUT SCH ×2 (09:54→21:38)
[2023-06-26] MEDS: PANTOPRAZOLE SODIUM 40 MG/VIAL IV SCH (09:54)
[2023-06-26] MEDS: GUAIFENESIN-DM 200MG-20MG/10ML UDC PO PRN (09:59)
[2023-06-26] MEDS: ATORVASTATIN CALCIUM 40MG TABLET PO SCH (21:37)
[2023-06-26] MEDS: LATANOPROST 0.005% OPHTH DROPS 2.5ML BOTHEYE SCH (21:59)
[2023-06-27] VITALS (12 sets, daily range): BP systolic 98–130; BP diastolic 61–100; PULSE 97–119; RESP 20–37; TEMP 97–98
[2023-06-27 03:39] LABS: HEMATOCRIT. 26.7 % (36.0-48.0); HEMOGLOBIN. 8.1 g/dL (12.0-16.0); MEAN CORPUSCULAR HGB CONC 30.3 g/dL (31.0-37.0); MEAN CORPUSCULAR VOLUME 95.5 fL (81.0-99.0); PLATELET 288 x1000/uL (130-400); RED CELL DISTRIBUTION WIDTH 19.9 % (11.6-14.6); WHITE BLOOD COUNT 9.6 x1000/uL (4.5-11.0)
[2023-06-27 03:45] LABS: INR 1.3; PROTHROMBIN TIME 13.3 sec (9.6-11.0)
[2023-06-27] MEDS: DEXT 5%/0.45% NACL 1000ML 1,000 ML IV SCH (03:45)
[2023-06-27 03:53] LABS: ALANINE AMINOTRANSFERASE 16 IU/L (10-49); ALBUMIN 2.3 g/dL (3.2-4.8); ASPARTATE AMINOTRANSFERASE 40 IU/L (<34); BILIRUBIN TOTAL 0.3 mg/dL (0.1-1.0); CALCIUM 8.3 mg/dL (8.7-10.4); CARBON DIOXIDE 18 mEq/L (21-32); CHLORIDE 114 mEq/L (98-107); CREATININE 1.5 mg/dL (0.6-1.0); GLUCOSE 153 mg/dL (70-105); POTASSIUM 3.8 mEq/L (3.5-5.1); PROTEIN TOTAL 5.7 g/dL (6.0-8.3); SODIUM 141 mEq/L (136-145); UREA NITROGEN BLOOD 8 mg/dL (9-23)
[2023-06-27 04:29] LABS: DIFFERENTIAL COMMENT 1
[2023-06-27] MEDS ORDERED: CEFAZOLIN 1000MG PREMIX 50 ML IV NR (05:00)
[2023-06-27] MEDS: BLOOD SUGAR DIAGNOSTIC STRIP TEST SCH ×4 (05:59→21:00)
[2023-06-27] MEDS: INSULIN LISPRO 100 UNITS/ML SUBCUT SCH ×4 (08:00→21:00)
[2023-06-27] MEDS: ENOXAPARIN 100MG/ML SYR SUBCUT SCH ×2 (08:11→21:43)
[2023-06-27] MEDS: PANTOPRAZOLE SODIUM 40 MG/VIAL IV SCH (08:58)
[2023-06-27] MEDS: METOPROLOL SUCCINATE 50MG ER TABLET PO SCH (09:00)
[2023-06-27] MEDS: LISINOPRIL 5MG TABLET PO SCH (09:07)
[2023-06-27 15:12] LABS: BG BASE EXCESS -6.8 mmol/L (-2.0-2.0); BG CARBOXYHEMOGLOBIN 0.3 % (0.5-1.5); BG FRACTION INSPIRED OXYGEN 28; BG HCO3 ACT 16.3 mmol/L (22.0-26.0); BG METHEMOGLOBIN 0.3 % (0.0-1.5); BG OXYHEMOGLOBIN 95.4 % (94.0-97.0); BG PCO2 24.6 mmHg (35.0-45.0); BG PH 7.438 (7.350-7.450); BG SAMPLE SITE LEFT RADIAL; BG TOTAL HEMOGLOBIN 8.7 g/dL (12.0-18.0); BG VENT MODE NASAL CANNULA
[2023-06-27 17:04] LABS: ANISOCYTOSIS 1+; PLATELET ESTIMATE NORMAL
[2023-06-27] MEDS: LATANOPROST 0.005% OPHTH DROPS 2.5ML BOTHEYE SCH (21:42)
[2023-06-27] MEDS: ATORVASTATIN CALCIUM 40MG TABLET PO SCH (21:43)
[2023-06-28] VITALS (11 sets, daily range): BP systolic 95–137; BP diastolic 35–87; PULSE 105–120; RESP 22–37; TEMP 96.8–98
[2023-06-28] MEDS: BLOOD SUGAR DIAGNOSTIC STRIP TEST SCH ×4 (07:30→21:21)
[2023-06-28] MEDS: INSULIN LISPRO 100 UNITS/ML SUBCUT SCH ×4 (08:00→21:00)
[2023-06-28] MEDS: METOPROLOL SUCCINATE 50MG ER TABLET PO SCH (08:35)
[2023-06-28] MEDS: PANTOPRAZOLE SODIUM 40 MG/VIAL IV SCH (08:35)
[2023-06-28] MEDS: ENOXAPARIN 100MG/ML SYR SUBCUT SCH ×2 (08:36→21:21)
[2023-06-28] MEDS: LISINOPRIL 5MG TABLET PO SCH (08:36)
[2023-06-28 11:38] LABS: ALANINE AMINOTRANSFERASE 14 IU/L (10-49); ALBUMIN 2.1 g/dL (3.2-4.8); ASPARTATE AMINOTRANSFERASE 52 IU/L (<34); BILIRUBIN TOTAL 0.3 mg/dL (0.1-1.0); CALCIUM 7.8 mg/dL (8.7-10.4); CARBON DIOXIDE 17 mEq/L (21-32); CHLORIDE 114 mEq/L (98-107); CREATININE 1.6 mg/dL (0.6-1.0); GLUCOSE 130 mg/dL (70-105); PROTEIN TOTAL 5.8 g/dL (6.0-8.3); SODIUM 142 mEq/L (136-145); UREA NITROGEN BLOOD 10 mg/dL (9-23)
[2023-06-28] MEDS: DEXT 5%/0.45% NACL 1000ML 1,000 ML IV SCH (12:55)
[2023-06-28 17:13] LABS: HEMATOCRIT. 25.6 % (36.0-48.0); HEMOGLOBIN. 7.7 g/dL (12.0-16.0); MEAN CORPUSCULAR HEMOGLOBIN 27.9 pg (28.0-32.0); MEAN CORPUSCULAR VOLUME 93.2 fL (81.0-99.0); MEAN PLATELET VOLUME 8.1 fl (7.4-10.4); PLATELET 334 x1000/uL (130-400); RED BLOOD CELL COUNT 2.74 mill/uL (4.2-5.4); RED CELL DISTRIBUTION WIDTH 19.5 % (11.6-14.6); WHITE BLOOD COUNT 12.3 x1000/uL (4.5-11.0)
[2023-06-28 17:18] LABS: DIFFERENTIAL COMMENT 1
[2023-06-28 17:51] LABS: ANISOCYTOSIS 1+; PLATELET ESTIMATE NORMAL
[2023-06-28] MEDS: PIPERACILLIN/TAZOBACTAM 3.375 G in DEXTROSE 5% WATER 50 ML IV SCH (17:54)
[2023-06-28] MEDS: LATANOPROST 0.005% OPHTH DROPS 2.5ML BOTHEYE SCH (21:00)
[2023-06-28] MEDS: ATORVASTATIN CALCIUM 40MG TABLET PO SCH (21:20)
[2023-06-28] MEDS ORDERED: DIGOXIN 500MCG/2ML AMP IV NR ×2 (22:54→23:13)
[2023-06-29] VITALS (12 sets, daily range): BP systolic 87–142; BP diastolic 51–78; PULSE 111–137; RESP 28–35; TEMP 97.8–98.2
[2023-06-29] MEDS: PIPERACILLIN/TAZOBACTAM 3.375 G in DEXTROSE 5% WATER 50 ML IV SCH ×5 (04:40→21:20)
[2023-06-29] MEDS: BLOOD SUGAR DIAGNOSTIC STRIP TEST SCH ×4 (05:40→21:00)
[2023-06-29] MEDS: DEXT 5%/0.45% NACL 1000ML 1,000 ML IV SCH ×2 (06:14→22:35)
[2023-06-29 07:00] LABS: HEMATOCRIT. 23.4 % (36.0-48.0); HEMOGLOBIN. 7.2 g/dL (12.0-16.0); MEAN CORPUSCULAR HEMOGLOBIN 28.8 pg (28.0-32.0); MEAN CORPUSCULAR HGB CONC 30.9 g/dL (31.0-37.0); MEAN CORPUSCULAR VOLUME 93.1 fL (81.0-99.0); MEAN PLATELET VOLUME 7.9 fl (7.4-10.4); PLATELET 336 x1000/uL (130-400); RED BLOOD CELL COUNT 2.52 mill/uL (4.2-5.4); WHITE BLOOD COUNT 11.6 x1000/uL (4.5-11.0)
[2023-06-29 07:35] LABS: DIFFERENTIAL COMMENT 1
[2023-06-29] MEDS: INSULIN LISPRO 100 UNITS/ML SUBCUT SCH ×4 (08:00→21:00)
[2023-06-29 08:12] LABS: CALCIUM 7.7 mg/dL (8.7-10.4); CREATININE 1.9 mg/dL (0.6-1.0); POTASSIUM 3.7 mEq/L (3.5-5.1)
[2023-06-29] MEDS: METOPROLOL SUCCINATE 50MG ER TABLET PO SCH (09:00)
[2023-06-29] MEDS: PANTOPRAZOLE SODIUM 40 MG/VIAL IV SCH (09:14)
[2023-06-29] MEDS: LISINOPRIL 5MG TABLET PO SCH (09:15)
[2023-06-29] MEDS ORDERED: SODIUM BICARBONATE 8.4% 1 MEQ/ML 50ML SYR IV NR (10:15)
[2023-06-29 12:37] LABS: BG BASE EXCESS -7.4 mmol/L (-2.0-2.0); BG CARBOXYHEMOGLOBIN 0.3 % (0.5-1.5); BG DEOXYHEMOGLOBIN 5.3 % (0.0-5.0); BG FRACTION INSPIRED OXYGEN 21; BG HCO3 ACT 15.4 mmol/L (22.0-26.0); BG METHEMOGLOBIN 0.1 % (0.0-1.5); BG OXYGEN SATURATION 94.7 % (92.0-98.5); BG OXYHEMOGLOBIN 94.3 % (94.0-97.0); BG PH 7.463 (7.350-7.450); BG PO2 73.9 mmHg (75.0-100.0); BG SAMPLE SITE RIGHT RADIAL; BG TOTAL HEMOGLOBIN 7.6 g/dL (12.0-18.0); BG VENT MODE ROOM AIR
[2023-06-29] MEDS: DOXYCYCLINE HYCLATE 100MG CAPSULE PO SCH ×2 (13:52→21:20)
[2023-06-29 16:28] LABS: PLATELET ESTIMATE NORMAL
[2023-06-29 16:29] LABS: OVALOCYTES 1+
[2023-06-29] MEDS: LATANOPROST 0.005% OPHTH DROPS 2.5ML BOTHEYE SCH (21:00)
[2023-06-29] MEDS: ATORVASTATIN CALCIUM 40MG TABLET PO SCH (21:20)
[2023-06-30] VITALS (14 sets, daily range): BP systolic 75–130; BP diastolic 32–117; PULSE 100–112; RESP 25–40; TEMP 97.5–99.7
[2023-06-30] MEDS: PIPERACILLIN/TAZOBACTAM 3.375 G in DEXTROSE 5% WATER 50 ML IV SCH ×3 (05:31→22:07)
[2023-06-30] MEDS: INSULIN LISPRO 100 UNITS/ML SUBCUT SCH ×4 (08:00→21:00)
[2023-06-30] MEDS: BLOOD SUGAR DIAGNOSTIC STRIP TEST SCH ×4 (08:12→21:00)
[2023-06-30] MEDS: DOXYCYCLINE HYCLATE 100MG CAPSULE PO SCH ×2 (08:43→17:10)
[2023-06-30] MEDS: LISINOPRIL 5MG TABLET PO SCH (08:46)
[2023-06-30] MEDS: METOPROLOL SUCCINATE 50MG ER TABLET PO SCH (09:00)
[2023-06-30] MEDS: PANTOPRAZOLE SODIUM 40 MG/VIAL IV SCH (09:35)
[2023-06-30] MEDS ORDERED: AMIODARONE HCL 150 MG in DEXT 5% WATER 100 ML IV ONE (10:45)
[2023-06-30] MEDS ORDERED: AMIODARONE 150MG/100ML PREMIX 100 ML IV NR (12:00)
[2023-06-30] MEDS ORDERED: FUROSEMIDE 40MG/4ML VIAL IVP NR ×2 (14:00→18:10)
[2023-06-30 14:37] LABS: BG BASE EXCESS -5.8 mmol/L (-2.0-2.0); BG CARBOXYHEMOGLOBIN 0.3 % (0.5-1.5); BG HCO3 ACT 17.1 mmol/L (22.0-26.0); BG METHEMOGLOBIN 0.6 % (0.0-1.5); BG OXYGEN SATURATION 91.9 % (92.0-98.5); BG OXYHEMOGLOBIN 91.1 % (94.0-97.0); BG PCO2 24.6 mmHg (35.0-45.0); BG PO2 65.3 mmHg (75.0-100.0); BG SAMPLE SITE RIGHT BRACHIAL; BG TOTAL HEMOGLOBIN 7.9 g/dL (12.0-18.0); BG VENT MODE ROOM AIR
[2023-06-30] MEDS ORDERED: SODIUM BICARBONATE 8.4% 1 MEQ/ML 50ML SYR IV NR (15:00)
[2023-06-30] MEDS ORDERED: METOPROLOL SUCCINATE 50MG ER TABLET PO NR (15:15)
[2023-06-30] MEDS ORDERED: METOPROLOL TARTRATE 50MG TABLET PO NR (15:30)
[2023-06-30] MEDS: DEXT 5%/0.45% NACL 1000ML 1,000 ML IV SCH (15:43)
[2023-06-30] MEDS ORDERED: MENTHOL/LANOLIN/CALAMINE/ZN OX OINT 71GM TOP PRN (16:00)
[2023-06-30 16:04] LABS: HEMATOCRIT. 25.1 % (36.0-48.0); MEAN CORPUSCULAR HEMOGLOBIN 28.3 pg (28.0-32.0); MEAN CORPUSCULAR HGB CONC 31.7 g/dL (31.0-37.0); MEAN CORPUSCULAR VOLUME 89.3 fL (81.0-99.0); PLATELET 368 x1000/uL (130-400); RED BLOOD CELL COUNT 2.81 mill/uL (4.2-5.4); RED CELL DISTRIBUTION WIDTH 19.4 % (11.6-14.6); WHITE BLOOD COUNT 13.9 x1000/uL (4.5-11.0)
[2023-06-30 16:08] LABS: DIFFERENTIAL COMMENT 1
[2023-06-30 16:18] LABS: CALCIUM 7.7 mg/dL (8.7-10.4); CREATININE 2.3 mg/dL (0.6-1.0); POTASSIUM 3.7 mEq/L (3.5-5.1)
[2023-06-30 16:40] LABS: ANISOCYTOSIS 2+; PLATELET ESTIMATE NORMAL
[2023-06-30] MEDS: NYSTATIN POWDER 15GM TOP SCH (17:10)
[2023-06-30] MEDS: ATORVASTATIN CALCIUM 40MG TABLET PO SCH (21:00)
[2023-07-01] VITALS (11 sets, daily range): BP systolic 91–118; BP diastolic 44–68; PULSE 96–113; RESP 29–47; TEMP 97.5–99.3
[2023-07-01 04:13] LABS: CALCIUM 7.9 mg/dL (8.7-10.4); CREATININE 2.5 mg/dL (0.6-1.0); POTASSIUM 3.4 mEq/L (3.5-5.1)
[2023-07-01 04:24] LABS: HEMATOCRIT. 29.5 % (36.0-48.0); HEMOGLOBIN. 9.2 g/dL (12.0-16.0); MEAN CORPUSCULAR HGB CONC 31.3 g/dL (31.0-37.0); MEAN CORPUSCULAR VOLUME 89.4 fL (81.0-99.0); MEAN PLATELET VOLUME 8.3 fl (7.4-10.4); PLATELET 366 x1000/uL (130-400); WHITE BLOOD COUNT 15.2 x1000/uL (4.5-11.0)
[2023-07-01 04:40] LABS: DIFFERENTIAL COMMENT 1
[2023-07-01] MEDS: PIPERACILLIN/TAZOBACTAM 3.375 G in DEXTROSE 5% WATER 50 ML IV SCH ×3 (06:40→22:58)
[2023-07-01] MEDS ORDERED: FUROSEMIDE 100MG/10ML VIAL IVP NR (07:00)
[2023-07-01] MEDS ORDERED: POTASSIUM CHLORIDE INJ 40 MEQ in DEXT 5% WATER 250 ML IV ONE (07:30)
[2023-07-01] MEDS: INSULIN LISPRO 100 UNITS/ML SUBCUT SCH ×4 (08:00→21:00)
[2023-07-01] MEDS: BLOOD SUGAR DIAGNOSTIC STRIP TEST SCH ×4 (08:14→21:00)
[2023-07-01] MEDS: LISINOPRIL 5MG TABLET PO SCH (09:00)
[2023-07-01] MEDS: DEXT 5%/0.45% NACL 1000ML 1,000 ML IV SCH (09:09)
[2023-07-01] MEDS: KCL 20MEQ/100ML X 2 FOR TOTAL KCL 40MEQ/200ML IV SCH ×2 (11:15→11:58)
[2023-07-01] MEDS: PANTOPRAZOLE SODIUM 40 MG/VIAL IV SCH (11:18)
[2023-07-01] MEDS: DOXYCYCLINE HYCLATE 100MG CAPSULE PO SCH ×2 (11:18→18:05)
[2023-07-01] MEDS: NYSTATIN POWDER 15GM TOP SCH ×2 (11:19→18:05)
[2023-07-01] MEDS: METOPROLOL TARTRATE 25MG TABLET PO SCH ×2 (11:26→21:00)
[2023-07-01] MEDS ORDERED: NALOXONE HCL 0.4MG/ML VIAL IV PRN (11:45)
[2023-07-01] MEDS: MORPHINE SULFATE 2 MG/ML CPJ (NOT FOR IM USE) IV PRN ×2 (11:55→18:15)
[2023-07-01 14:28] LABS: PLATELET ESTIMATE NORMAL
[2023-07-01 14:29] LABS: ANISOCYTOSIS 1+
[2023-07-01] MEDS: ATORVASTATIN CALCIUM 40MG TABLET PO SCH (21:00)
[2023-07-02] VITALS (12 sets, daily range): BP systolic 89–132; BP diastolic 48–82; PULSE 101–119; RESP 31–47; TEMP 98.1–99.5
[2023-07-02] MEDS: DEXT 5%/0.45% NACL 1000ML 1,000 ML IV SCH ×2 (00:35→17:48)
[2023-07-02] MEDS: PIPERACILLIN/TAZOBACTAM 3.375 G in DEXTROSE 5% WATER 50 ML IV SCH ×2 (05:52→21:00)
[2023-07-02] MEDS: BLOOD SUGAR DIAGNOSTIC STRIP TEST SCH ×4 (07:30→21:00)
[2023-07-02] MEDS: INSULIN LISPRO 100 UNITS/ML SUBCUT SCH ×4 (08:00→21:00)
[2023-07-02] MEDS: LISINOPRIL 5MG TABLET PO SCH (09:00)
[2023-07-02 09:41] LABS: HEMOGLOBIN. 8.5 g/dL (12.0-16.0); MEAN CORPUSCULAR HEMOGLOBIN 27.8 pg (28.0-32.0); MEAN CORPUSCULAR HGB CONC 30.1 g/dL (31.0-37.0); MEAN CORPUSCULAR VOLUME 92.2 fL (81.0-99.0); PLATELET 335 x1000/uL (130-400); RED BLOOD CELL COUNT 3.04 mill/uL (4.2-5.4); RED CELL DISTRIBUTION WIDTH 20.1 % (11.6-14.6); WHITE BLOOD COUNT 15.2 x1000/uL (4.5-11.0)
[2023-07-02 09:49] LABS: DIFFERENTIAL COMMENT 1
[2023-07-02 10:04] LABS: CALCIUM 8.2 mg/dL (8.7-10.4); POTASSIUM 3.8 mEq/L (3.5-5.1)
[2023-07-02] MEDS: PANTOPRAZOLE SODIUM 40 MG/VIAL IV SCH (10:15)
[2023-07-02] MEDS: DOXYCYCLINE HYCLATE 100MG CAPSULE PO SCH ×2 (10:15→17:47)
[2023-07-02] MEDS: METOPROLOL TARTRATE 25MG TABLET PO SCH ×2 (10:15→22:20)
[2023-07-02] MEDS: NYSTATIN POWDER 15GM TOP SCH ×2 (10:16→17:48)
[2023-07-02 13:53] LABS: ANISOCYTOSIS 2+; PLATELET ESTIMATE NORMAL
[2023-07-02] MEDS: ATORVASTATIN CALCIUM 40MG TABLET PO SCH (22:02)
[2023-07-03] VITALS (11 sets, daily range): BP systolic 91–120; BP diastolic 42–70; PULSE 97–107; RESP 20–41; TEMP 99–101
[2023-07-03] MEDS: BLOOD SUGAR DIAGNOSTIC STRIP TEST SCH ×4 (07:30→21:41)
[2023-07-03] MEDS: INSULIN LISPRO 100 UNITS/ML SUBCUT SCH ×4 (08:00→21:00)
[2023-07-03] MEDS: PANTOPRAZOLE SODIUM 40 MG/VIAL IV SCH (08:22)
[2023-07-03] MEDS: ACETAMINOPHEN 325MG TABLET PO PRN (08:22)
[2023-07-03] MEDS: PIPERACILLIN/TAZOBACTAM 3.375 G in DEXTROSE 5% WATER 50 ML IV SCH ×2 (08:23→21:39)
[2023-07-03] MEDS: DOXYCYCLINE HYCLATE 100MG CAPSULE PO SCH ×2 (08:23→18:16)
[2023-07-03] MEDS: METOPROLOL TARTRATE 25MG TABLET PO SCH ×2 (08:26→21:40)
[2023-07-03] MEDS: NYSTATIN POWDER 15GM TOP SCH ×2 (09:00→17:00)
[2023-07-03] MEDS: LISINOPRIL 5MG TABLET PO SCH (09:00)
[2023-07-03] MEDS: FUROSEMIDE 40MG/4ML VIAL IVP SCH ×2 (16:03→21:40)
[2023-07-03] MEDS: DEXT 5%/0.45% NACL 1000ML 1,000 ML IV SCH (18:22)
[2023-07-03] MEDS: ATORVASTATIN CALCIUM 40MG TABLET PO SCH (21:39)
[2023-07-04] VITALS (24 sets, daily range): BP systolic 66–153; BP diastolic 23–115; PULSE 99–122; RESP 23–48; TEMP 98.2–101.3
[2023-07-04 06:14] LABS: CALCIUM 8.1 mg/dL (8.7-10.4); CREATININE 3.5 mg/dL (0.6-1.0); POTASSIUM 3.6 mEq/L (3.5-5.1)
[2023-07-04 06:52] LABS: HEMATOCRIT. 29.6 % (36.0-48.0); HEMOGLOBIN. 9.1 g/dL (12.0-16.0); MEAN CORPUSCULAR HEMOGLOBIN 28.2 pg (28.0-32.0); MEAN CORPUSCULAR HGB CONC 30.6 g/dL (31.0-37.0); MEAN CORPUSCULAR VOLUME 92.3 fL (81.0-99.0); MEAN PLATELET VOLUME 8.5 fl (7.4-10.4); PLATELET 299 x1000/uL (130-400); RED BLOOD CELL COUNT 3.21 mill/uL (4.2-5.4); RED CELL DISTRIBUTION WIDTH 20.5 % (11.6-14.6); WHITE BLOOD COUNT 14.4 x1000/uL (4.5-11.0)
[2023-07-04 07:09] LABS: DIFFERENTIAL COMMENT 1
[2023-07-04] MEDS: INSULIN LISPRO 100 UNITS/ML SUBCUT SCH ×4 (08:00→21:00)
[2023-07-04] MEDS: BLOOD SUGAR DIAGNOSTIC STRIP TEST SCH ×4 (08:23→21:00)
[2023-07-04] MEDS: PANTOPRAZOLE SODIUM 40 MG/VIAL IV SCH (08:24)
[2023-07-04] MEDS: DOXYCYCLINE HYCLATE 100MG CAPSULE PO SCH ×2 (08:24→17:19)
[2023-07-04] MEDS: NYSTATIN POWDER 15GM TOP SCH ×2 (09:00→17:00)
[2023-07-04] MEDS: LISINOPRIL 5MG TABLET PO SCH (09:00)
[2023-07-04] MEDS: FUROSEMIDE 40MG/4ML VIAL IVP SCH ×2 (09:00→17:00)
[2023-07-04] MEDS: METOPROLOL TARTRATE 25MG TABLET PO SCH ×2 (09:00→21:00)
[2023-07-04 13:55] LABS: ATYPICAL LYMPHOCYTES 1
[2023-07-04 13:56] LABS: ANISOCYTOSIS 2+; PLATELET ESTIMATE NORMAL
[2023-07-04 15:18] LABS: BG BASE EXCESS -4.6 mmol/L (-2.0-2.0); BG CARBOXYHEMOGLOBIN 0.5 % (0.5-1.5); BG DEOXYHEMOGLOBIN 7.3 % (0.0-5.0); BG FRACTION INSPIRED OXYGEN 28; BG METHEMOGLOBIN 0.3 % (0.0-1.5); BG OXYGEN SATURATION 92.6 % (92.0-98.5); BG OXYHEMOGLOBIN 91.9 % (94.0-97.0); BG PCO2 31.2 mmHg (35.0-45.0); BG PH 7.403 (7.350-7.450); BG PO2 67.5 mmHg (75.0-100.0); BG SAMPLE SITE RIGHT RADIAL; BG TOTAL HEMOGLOBIN 13.9 g/dL (12.0-18.0); BG VENT MODE NASAL CANNULA
[2023-07-04] MEDS: DEXT 5%/0.45% NACL 1000ML 1,000 ML IV SCH ×2 (16:32→22:20)
[2023-07-04] MEDS: LATANOPROST 0.005% OPHTH DROPS 2.5ML BOTHEYE SCH (21:00)
[2023-07-04] MEDS: ATORVASTATIN CALCIUM 40MG TABLET PO SCH (22:19)
[2023-07-04] MEDS: ACETAMINOPHEN 325MG TABLET PO PRN (22:19)
[2023-07-04] MEDS ORDERED: MIDODRINE HCL 5MG TABLET PO NR (22:35)
[2023-07-04 23:05] LABS: BG BASE EXCESS -7.2 mmol/L (-2.0-2.0); BG CARBOXYHEMOGLOBIN 0.3 % (0.5-1.5); BG DEOXYHEMOGLOBIN 7.4 % (0.0-5.0); BG FRACTION INSPIRED OXYGEN 28; BG HCO3 ACT 15.5 mmol/L (22.0-26.0); BG METHEMOGLOBIN 0.2 % (0.0-1.5); BG OXYGEN SATURATION 92.6 % (92.0-98.5); BG OXYHEMOGLOBIN 92.1 % (94.0-97.0); BG PCO2 22.6 mmHg (35.0-45.0); BG PH 7.454 (7.350-7.450); BG SAMPLE SITE LEFT RADIAL; BG TOTAL HEMOGLOBIN 8.7 g/dL (12.0-18.0); BG VENT MODE NASAL CANNULA
[2023-07-05] VITALS (12 sets, daily range): BP systolic 87–136; BP diastolic 50–71; PULSE 72–120; RESP 14–43; TEMP 97.5–98
[2023-07-05] MEDS: METHYLPREDNISOLONE SOD SUCC 40MG/ML (ACT-O-VIAL) IV SCH ×3 (01:03→18:21)
[2023-07-05] MEDS: BLOOD SUGAR DIAGNOSTIC STRIP TEST SCH ×4 (07:30→20:55)
[2023-07-05] MEDS: DOXYCYCLINE HYCLATE 100MG CAPSULE PO SCH ×2 (11:12→18:22)
[2023-07-05] MEDS: LISINOPRIL 5MG TABLET PO SCH (11:13)
[2023-07-05] MEDS: METOPROLOL TARTRATE 25MG TABLET PO SCH ×2 (11:14→20:55)
[2023-07-05] MEDS: PANTOPRAZOLE SODIUM 40 MG/VIAL IV SCH (11:15)
[2023-07-05] MEDS: FUROSEMIDE 40MG/4ML VIAL IVP SCH (11:15)
[2023-07-05] MEDS: GUAIFENESIN-DM 200MG-20MG/10ML UDC PO PRN (11:15)
[2023-07-05] MEDS: INSULIN LISPRO 100 UNITS/ML SUBCUT SCH ×4 (11:17→20:55)
[2023-07-05] MEDS: MIDODRINE HCL 5MG TABLET PO SCH ×3 (11:19→18:22)
[2023-07-05] MEDS: NYSTATIN POWDER 15GM TOP SCH ×2 (11:19→18:22)
[2023-07-05] MEDS: DEXT 5%/0.45% NACL 1000ML 1,000 ML IV SCH ×2 (11:55→20:56)
[2023-07-05] MEDS: LATANOPROST 0.005% OPHTH DROPS 2.5ML BOTHEYE SCH (20:55)
[2023-07-05] MEDS: ATORVASTATIN CALCIUM 40MG TABLET PO SCH (20:55)
[2023-07-06] VITALS (13 sets, daily range): BP systolic 105–130; BP diastolic 49–79; PULSE 71–108; RESP 20–28; TEMP 97.5–98.8
[2023-07-06] MEDS: METHYLPREDNISOLONE SOD SUCC 40MG/ML (ACT-O-VIAL) IV SCH ×2 (05:41→18:21)
[2023-07-06 06:37] LABS: HEMATOCRIT. 27.1 % (36.0-48.0); HEMOGLOBIN. 8.1 g/dL (12.0-16.0); MEAN CORPUSCULAR HEMOGLOBIN 28.5 pg (28.0-32.0); MEAN CORPUSCULAR VOLUME 94.9 fL (81.0-99.0); MEAN PLATELET VOLUME 9.2 fl (7.4-10.4); PLATELET 260 x1000/uL (130-400); RED BLOOD CELL COUNT 2.86 mill/uL (4.2-5.4); RED CELL DISTRIBUTION WIDTH 21.2 % (11.6-14.6); WHITE BLOOD COUNT 23.7 x1000/uL (4.5-11.0)
[2023-07-06] MEDS: BLOOD SUGAR DIAGNOSTIC STRIP TEST SCH ×4 (06:43→22:45)
[2023-07-06] MEDS: INSULIN LISPRO 100 UNITS/ML SUBCUT SCH ×4 (06:43→23:00)
[2023-07-06 06:55] LABS: DIFFERENTIAL COMMENT 1
[2023-07-06 07:52] LABS: ALANINE AMINOTRANSFERASE 8 IU/L (10-49); ASPARTATE AMINOTRANSFERASE 49 IU/L (<34); BILIRUBIN TOTAL 0.2 mg/dL (0.1-1.0); CALCIUM 7.4 mg/dL (8.7-10.4); CARBON DIOXIDE 20 mEq/L (21-32); CHLORIDE 113 mEq/L (98-107); CREATININE 4.5 mg/dL (0.6-1.0); GLUCOSE 292 mg/dL (70-105); POTASSIUM 3.8 mEq/L (3.5-5.1); PROTEIN TOTAL 5.3 g/dL (6.0-8.3); SODIUM 143 mEq/L (136-145); UREA NITROGEN BLOOD 31 mg/dL (9-23)
[2023-07-06] MEDS: PANTOPRAZOLE SODIUM 40 MG/VIAL IV SCH (11:11)
[2023-07-06] MEDS: METOPROLOL TARTRATE 25MG TABLET PO SCH ×2 (11:11→21:50)
[2023-07-06] MEDS: DOXYCYCLINE HYCLATE 100MG CAPSULE PO SCH ×2 (11:12→18:22)
[2023-07-06] MEDS: MIDODRINE HCL 5MG TABLET PO SCH ×3 (11:12→18:22)
[2023-07-06] MEDS: LISINOPRIL 5MG TABLET PO SCH (11:12)
[2023-07-06] MEDS: MORPHINE SULFATE 2 MG/ML CPJ (NOT FOR IM USE) IV PRN (11:13)
[2023-07-06] MEDS: NYSTATIN POWDER 15GM TOP SCH ×2 (11:14→18:22)
[2023-07-06 16:59] LABS: NUCLEATED RED BLOOD CELLS 1 /100 WBC; PLATELET ESTIMATE NORMAL
[2023-07-06 18:10] LABS: BG CARBOXYHEMOGLOBIN 0.3 % (0.5-1.5); BG DEOXYHEMOGLOBIN 4.9 % (0.0-5.0); BG FRACTION INSPIRED OXYGEN 28; BG HCO3 ACT 16.3 mmol/L (22.0-26.0); BG METHEMOGLOBIN 0.3 % (0.0-1.5); BG OXYGEN SATURATION 95.1 % (92.0-98.5); BG OXYHEMOGLOBIN 94.5 % (94.0-97.0); BG PCO2 29.1 mmHg (35.0-45.0); BG PH 7.366 (7.350-7.450); BG PO2 80.7 mmHg (75.0-100.0); BG SAMPLE SITE RIGHT RADIAL; BG TOTAL HEMOGLOBIN 9.5 g/dL (12.0-18.0); BG VENT MODE NASAL CANNULA
[2023-07-06] MEDS: LATANOPROST 0.005% OPHTH DROPS 2.5ML BOTHEYE SCH (21:00)
[2023-07-06] MEDS: DEXT 5%/0.45% NACL 1000ML 1,000 ML IV SCH (21:15)
[2023-07-06] MEDS: ATORVASTATIN CALCIUM 40MG TABLET PO SCH (21:50)
[2023-07-06 22:21] LABS: CLARITY URINE TURBID (CLEAR); COLOR URINE DARK YELLOW (YELLOW); GLUCOSE URINE NEGATIVE (NEGATIVE); KETONES URINE TRACE (NEGATIVE); LEUKOCYTE ESTERASE URINE 2+ (NEGATIVE); NITRITE URINE NEGATIVE (NEGATIVE); OCCULT BLOOD URINE TRACE (NEGATIVE); PROTEIN URINE 1+ (NEGATIVE); SPECIFIC GRAVITY URINE 1.026 (1.005-1.030)
[2023-07-06 22:51] LABS: BACTERIA URINE 2+; CALCIUM OXALATE CRYSTALS URINE 1+ /lpf; RBC URINE 0-2 /hpf (0-2); SQUAMOUS EPITHELIAL CELL URINE 2+ /lpf (RARE/1+)
[2023-07-07] VITALS (11 sets, daily range): BP systolic 110–132; BP diastolic 51–70; PULSE 81–107; RESP 17–37; TEMP 97.3–97.8
[2023-07-07] MEDS: METHYLPREDNISOLONE SOD SUCC 40MG/ML (ACT-O-VIAL) IV SCH ×2 (06:18→18:13)
[2023-07-07] MEDS: PANTOPRAZOLE SODIUM 40 MG/VIAL IV SCH (08:27)
[2023-07-07] MEDS: NYSTATIN POWDER 15GM TOP SCH ×2 (08:28→18:13)
[2023-07-07] MEDS: BLOOD SUGAR DIAGNOSTIC STRIP TEST SCH ×4 (08:28→22:00)
[2023-07-07] MEDS: METOPROLOL TARTRATE 25MG TABLET PO SCH ×2 (08:28→22:00)
[2023-07-07] MEDS: MIDODRINE HCL 5MG TABLET PO SCH ×3 (08:28→18:13)
[2023-07-07] MEDS: INSULIN LISPRO 100 UNITS/ML SUBCUT SCH ×4 (08:31→22:00)
[2023-07-07] MEDS: FUROSEMIDE 40MG TABLET PO SCH (11:42)
[2023-07-07] MEDS: GUAIFENESIN-DM 200MG-20MG/10ML UDC PO PRN ×2 (11:44→18:13)
[2023-07-07] MEDS: CEFEPIME 2,000 MG in DEXT 5% WATER 100 ML IV SCH (11:44)
[2023-07-07 12:23] LABS: HEMATOCRIT. 23.5 % (36.0-48.0); HEMOGLOBIN. 7.4 g/dL (12.0-16.0); MEAN CORPUSCULAR HEMOGLOBIN 28.6 pg (28.0-32.0); MEAN CORPUSCULAR HGB CONC 31.4 g/dL (31.0-37.0); MEAN CORPUSCULAR VOLUME 91.1 fL (81.0-99.0); MEAN PLATELET VOLUME 8.9 fl (7.4-10.4); PLATELET 319 x1000/uL (130-400); RED BLOOD CELL COUNT 2.58 mill/uL (4.2-5.4); RED CELL DISTRIBUTION WIDTH 20.5 % (11.6-14.6); WHITE BLOOD COUNT 20.4 x1000/uL (4.5-11.0)
[2023-07-07 12:32] LABS: ALANINE AMINOTRANSFERASE 46 IU/L (10-49); ALBUMIN 2.1 g/dL (3.2-4.8); ASPARTATE AMINOTRANSFERASE 147 IU/L (<34); BILIRUBIN TOTAL 0.2 mg/dL (0.1-1.0); CALCIUM 6.9 mg/dL (8.7-10.4); CARBON DIOXIDE 19 mEq/L (21-32); CHLORIDE 113 mEq/L (98-107); CREATININE 4.6 mg/dL (0.6-1.0); GLUCOSE 276 mg/dL (70-105); PROTEIN TOTAL 5.7 g/dL (6.0-8.3); SODIUM 142 mEq/L (136-145); UREA NITROGEN BLOOD 58 mg/dL (9-23)
[2023-07-07 12:56] LABS: DIFFERENTIAL COMMENT 1
[2023-07-07] MEDS: DEXT 5%/0.45% NACL 1000ML 1,000 ML IV SCH (13:13)
[2023-07-07 19:21] LABS: ANISOCYTOSIS 2+; PLATELET ESTIMATE NORMAL
[2023-07-07] MEDS: ATORVASTATIN CALCIUM 40MG TABLET PO SCH (22:00)
[2023-07-08] VITALS (11 sets, daily range): BP systolic 107–132; BP diastolic 47–62; PULSE 81–97; RESP 17–25; TEMP 97.5–97.9
[2023-07-08] MEDS: METHYLPREDNISOLONE SOD SUCC 40MG/ML (ACT-O-VIAL) IV SCH ×2 (06:48→18:59)
[2023-07-08] MEDS: BLOOD SUGAR DIAGNOSTIC STRIP TEST SCH ×4 (07:30→20:41)
[2023-07-08 07:34] LABS: HEMATOCRIT. 22.4 % (36.0-48.0); HEMOGLOBIN. 7.2 g/dL (12.0-16.0); MEAN CORPUSCULAR HEMOGLOBIN 28.7 pg (28.0-32.0); MEAN CORPUSCULAR HGB CONC 32.4 g/dL (31.0-37.0); MEAN CORPUSCULAR VOLUME 88.7 fL (81.0-99.0); MEAN PLATELET VOLUME 8.7 fl (7.4-10.4); PLATELET 310 x1000/uL (130-400); RED BLOOD CELL COUNT 2.52 mill/uL (4.2-5.4); RED CELL DISTRIBUTION WIDTH 20.3 % (11.6-14.6)
[2023-07-08 07:48] LABS: CALCIUM 6.8 mg/dL (8.7-10.4); CREATININE 4.1 mg/dL (0.6-1.0)
[2023-07-08 08:39] LABS: DIFFERENTIAL COMMENT 1
[2023-07-08] MEDS: FUROSEMIDE 40MG TABLET PO SCH (10:44)
[2023-07-08] MEDS: GUAIFENESIN-DM 200MG-20MG/10ML UDC PO PRN (10:44)
[2023-07-08] MEDS: PANTOPRAZOLE SODIUM 40 MG/VIAL IV SCH (10:44)
[2023-07-08] MEDS: MIDODRINE HCL 5MG TABLET PO SCH ×3 (10:44→19:00)
[2023-07-08] MEDS: ACETAMINOPHEN 325MG TABLET PO PRN (10:45)
[2023-07-08] MEDS: METOPROLOL TARTRATE 25MG TABLET PO SCH ×2 (10:45→20:46)
[2023-07-08] MEDS: CEFEPIME 2,000 MG in DEXT 5% WATER 100 ML IV SCH (10:45)
[2023-07-08] MEDS: DEXT 5%/0.45% NACL 1000ML 1,000 ML IV SCH ×2 (10:46→23:15)
[2023-07-08] MEDS: NYSTATIN POWDER 15GM TOP SCH ×2 (10:47→19:00)
[2023-07-08] MEDS ORDERED: VANCOMYCIN 1500MG in DEXTROSE 5% WATER 250ML IV NR (13:00)
[2023-07-08] MEDS: INSULIN LISPRO 100 UNITS/ML SUBCUT SCH ×4 (13:31→20:47)
[2023-07-08] MEDS: ATORVASTATIN CALCIUM 40MG TABLET PO SCH (20:46)
[2023-07-08 20:53] LABS: ANISOCYTOSIS 2+; PLATELET ESTIMATE NORMAL
[2023-07-09] VITALS (10 sets, daily range): BP systolic 105–140; BP diastolic 50–79; PULSE 69–92; RESP 12–27; TEMP 97.1–97.9
[2023-07-09] MEDS: METHYLPREDNISOLONE SOD SUCC 40MG/ML (ACT-O-VIAL) IV SCH ×2 (05:30→18:00)
[2023-07-09] MEDS: BLOOD SUGAR DIAGNOSTIC STRIP TEST SCH ×4 (07:30→21:00)
[2023-07-09 07:31] LABS: HEMATOCRIT. 22.8 % (36.0-48.0); HEMOGLOBIN. 7.1 g/dL (12.0-16.0); MEAN CORPUSCULAR HEMOGLOBIN 28.3 pg (28.0-32.0); MEAN CORPUSCULAR HGB CONC 31.1 g/dL (31.0-37.0); MEAN CORPUSCULAR VOLUME 91.3 fL (81.0-99.0); MEAN PLATELET VOLUME 8.5 fl (7.4-10.4); PLATELET 317 x1000/uL (130-400); RED CELL DISTRIBUTION WIDTH 20.3 % (11.6-14.6); WHITE BLOOD COUNT 17.7 x1000/uL (4.5-11.0)
[2023-07-09 07:38] LABS: DIFFERENTIAL COMMENT 1
[2023-07-09 08:07] LABS: CALCIUM 7.1 mg/dL (8.7-10.4); CREATININE 3.5 mg/dL (0.6-1.0); POTASSIUM 4.3 mEq/L (3.5-5.1)
[2023-07-09] MEDS: INSULIN LISPRO 100 UNITS/ML SUBCUT SCH ×4 (08:07→23:51)
[2023-07-09] MEDS: NYSTATIN POWDER 15GM TOP SCH ×2 (09:00→17:00)
[2023-07-09] MEDS: PANTOPRAZOLE SODIUM 40 MG/VIAL IV SCH (09:41)
[2023-07-09] MEDS: METOPROLOL TARTRATE 25MG TABLET PO SCH ×2 (09:42→22:58)
[2023-07-09] MEDS: FUROSEMIDE 40MG TABLET PO SCH (09:43)
[2023-07-09] MEDS: MIDODRINE HCL 5MG TABLET PO SCH ×3 (09:43→17:00)
[2023-07-09] MEDS: CEFEPIME 2,000 MG in DEXT 5% WATER 100 ML IV SCH (11:49)
[2023-07-09] MEDS: GUAIFENESIN-DM 200MG-20MG/10ML UDC PO PRN (11:50)
[2023-07-09 13:44] LABS: NUCLEATED RED BLOOD CELLS 2 /100 WBC
[2023-07-09 13:45] LABS: ANISOCYTOSIS 2+; HYPOCHROMASIA 1+; OVALOCYTES 1+; PLATELET ESTIMATE NORMAL
[2023-07-09] MEDS: DEXT 5%/0.45% NACL 1000ML 1,000 ML IV SCH (15:55)
[2023-07-09] MEDS: ATORVASTATIN CALCIUM 40MG TABLET PO SCH (22:57)
[2023-07-09] MEDS: LATANOPROST 0.005% OPHTH DROPS 2.5ML BOTHEYE SCH (23:59)
[2023-07-10] VITALS (11 sets, daily range): BP systolic 122–138; BP diastolic 54–66; PULSE 69–93; RESP 12–19; TEMP 97.9–99
[2023-07-10] MEDS: LATANOPROST 0.005% OPHTH DROPS 2.5ML BOTHEYE SCH ×3 (00:01→21:59)
[2023-07-10] MEDS: METHYLPREDNISOLONE SOD SUCC 40MG/ML (ACT-O-VIAL) IV SCH ×2 (06:28→17:56)
[2023-07-10] MEDS: BLOOD SUGAR DIAGNOSTIC STRIP TEST SCH ×4 (07:30→21:00)
[2023-07-10] MEDS: INSULIN LISPRO 100 UNITS/ML SUBCUT SCH ×4 (08:00→23:06)
[2023-07-10 08:02] LABS: CALCIUM 7.2 mg/dL (8.7-10.4); CREATININE 2.5 mg/dL (0.6-1.0); POTASSIUM 4.1 mEq/L (3.5-5.1)
[2023-07-10 08:09] LABS: HEMATOCRIT. 22.8 % (36.0-48.0); HEMOGLOBIN. 7.2 g/dL (12.0-16.0); MEAN CORPUSCULAR HEMOGLOBIN 28.4 pg (28.0-32.0); MEAN CORPUSCULAR HGB CONC 31.7 g/dL (31.0-37.0); MEAN CORPUSCULAR VOLUME 89.6 fL (81.0-99.0); MEAN PLATELET VOLUME 8.5 fl (7.4-10.4); PLATELET 321 x1000/uL (130-400); RED BLOOD CELL COUNT 2.55 mill/uL (4.2-5.4); RED CELL DISTRIBUTION WIDTH 20.9 % (11.6-14.6); WHITE BLOOD COUNT 16.2 x1000/uL (4.5-11.0)
[2023-07-10] MEDS: DEXT 5%/0.45% NACL 1000ML 1,000 ML IV SCH (08:35)
[2023-07-10] MEDS: NYSTATIN POWDER 15GM TOP SCH ×2 (09:00→17:00)
[2023-07-10] MEDS: GUAIFENESIN-DM 200MG-20MG/10ML UDC PO PRN (09:04)
[2023-07-10] MEDS: ACETAMINOPHEN 325MG TABLET PO PRN (09:04)
[2023-07-10] MEDS: MIDODRINE HCL 5MG TABLET PO SCH ×3 (09:05→17:00)
[2023-07-10] MEDS: FUROSEMIDE 40MG TABLET PO SCH (09:05)
[2023-07-10] MEDS: PANTOPRAZOLE SODIUM 40 MG/VIAL IV SCH (09:05)
[2023-07-10] MEDS: METOPROLOL TARTRATE 25MG TABLET PO SCH ×2 (09:05→22:00)
[2023-07-10 10:43] LABS: DIFFERENTIAL COMMENT 1
[2023-07-10] MEDS: CEFEPIME 2,000 MG in DEXT 5% WATER 100 ML IV SCH (11:00)
[2023-07-10 19:42] LABS: ANISOCYTOSIS 2+; HYPOCHROMASIA 1+; PLATELET ESTIMATE NORMAL
[2023-07-10] MEDS: ATORVASTATIN CALCIUM 40MG TABLET PO SCH (21:59)
[2023-07-10] MEDS: SODIUM CHLORIDE 0.45% 1,000 ML IV SCH (23:21)
[2023-07-11] VITALS (17 sets, daily range): BP systolic 117–142; BP diastolic 61–77; PULSE 74–94; RESP 13–18; TEMP 97.8–98.8
[2023-07-11] MEDS: METHYLPREDNISOLONE SOD SUCC 40MG/ML (ACT-O-VIAL) IV SCH ×2 (06:15→19:00)
[2023-07-11] MEDS: BLOOD SUGAR DIAGNOSTIC STRIP TEST SCH ×4 (07:50→21:32)
[2023-07-11] MEDS: INSULIN LISPRO 100 UNITS/ML SUBCUT SCH ×4 (08:00→21:31)
[2023-07-11] MEDS: MIDODRINE HCL 5MG TABLET PO SCH ×3 (09:00→17:00)
[2023-07-11] MEDS: NYSTATIN POWDER 15GM TOP SCH ×2 (09:00→17:00)
[2023-07-11] MEDS: FUROSEMIDE 40MG TABLET PO SCH (10:11)
[2023-07-11] MEDS: METOPROLOL TARTRATE 25MG TABLET PO SCH ×2 (10:11→21:30)
[2023-07-11] MEDS: PANTOPRAZOLE SODIUM 40 MG/VIAL IV SCH (10:11)
[2023-07-11] MEDS: CEFEPIME 2,000 MG in DEXT 5% WATER 100 ML IV SCH (11:00)
[2023-07-11 12:10] LABS: HEMATOCRIT. 22.4 % (36.0-48.0); MEAN CORPUSCULAR HEMOGLOBIN 28.5 pg (28.0-32.0); MEAN CORPUSCULAR VOLUME 91.7 fL (81.0-99.0); MEAN PLATELET VOLUME 8.4 fl (7.4-10.4); PLATELET 320 x1000/uL (130-400); RED BLOOD CELL COUNT 2.45 mill/uL (4.2-5.4); RED CELL DISTRIBUTION WIDTH 21.8 % (11.6-14.6); WHITE BLOOD COUNT 13.6 x1000/uL (4.5-11.0)
[2023-07-11 12:14] LABS: DIFFERENTIAL COMMENT 1
[2023-07-11 12:29] LABS: CREATININE 1.9 mg/dL (0.6-1.0); POTASSIUM 3.7 mEq/L (3.5-5.1)
[2023-07-11 14:50] LABS: ANISOCYTOSIS 2+; OVALOCYTES 1+; PLATELET ESTIMATE NORMAL
[2023-07-11] MEDS: SODIUM CHLORIDE 0.45% 1,000 ML IV SCH (19:18)
[2023-07-11] MEDS: ATORVASTATIN CALCIUM 40MG TABLET PO SCH (21:29)
[2023-07-11] MEDS: LATANOPROST 0.005% OPHTH DROPS 2.5ML BOTHEYE SCH (21:29)
[2023-07-11 23:38] LABS: HEMATOCRIT. 26.3 % (36.0-48.0); MEAN CORPUSCULAR HEMOGLOBIN 27.3 pg (28.0-32.0); MEAN CORPUSCULAR HGB CONC 30.4 g/dL (31.0-37.0); MEAN CORPUSCULAR VOLUME 89.8 fL (81.0-99.0); MEAN PLATELET VOLUME 8.5 fl (7.4-10.4); PLATELET 310 x1000/uL (130-400); RED BLOOD CELL COUNT 2.93 mill/uL (4.2-5.4); RED CELL DISTRIBUTION WIDTH 20.1 % (11.6-14.6); WHITE BLOOD COUNT 15.7 x1000/uL (4.5-11.0)
[2023-07-11 23:45] LABS: INR 1.2; PROTHROMBIN TIME 12.6 sec (9.6-11.0)
[2023-07-11 23:47] LABS: DIFFERENTIAL COMMENT 1
[2023-07-12] VITALS (12 sets, daily range): BP systolic 130–160; BP diastolic 63–90; PULSE 72–97; RESP 13–18; TEMP 97.8–99
[2023-07-12 00:45] LABS: PLATELET ESTIMATE NORMAL
[2023-07-12] MEDS: METHYLPREDNISOLONE SOD SUCC 40MG/ML (ACT-O-VIAL) IV SCH ×2 (06:24→17:28)
[2023-07-12 06:38] LABS: HEMATOCRIT. 27.2 % (36.0-48.0); HEMOGLOBIN. 8.8 g/dL (12.0-16.0); MEAN CORPUSCULAR HEMOGLOBIN 28.7 pg (28.0-32.0); MEAN CORPUSCULAR HGB CONC 32.3 g/dL (31.0-37.0); MEAN CORPUSCULAR VOLUME 88.9 fL (81.0-99.0); MEAN PLATELET VOLUME 8.5 fl (7.4-10.4); PLATELET 317 x1000/uL (130-400); RED BLOOD CELL COUNT 3.06 mill/uL (4.2-5.4); RED CELL DISTRIBUTION WIDTH 20.9 % (11.6-14.6); WHITE BLOOD COUNT 16.3 x1000/uL (4.5-11.0)
[2023-07-12 06:41] LABS: DIFFERENTIAL COMMENT 1
[2023-07-12] MEDS: SODIUM CHLORIDE 0.45% 1,000 ML IV SCH (06:48)
[2023-07-12 07:04] LABS: CALCIUM 7.4 mg/dL (8.7-10.4); CREATININE 1.6 mg/dL (0.6-1.0)
[2023-07-12] MEDS: BLOOD SUGAR DIAGNOSTIC STRIP TEST SCH ×4 (07:44→21:44)
[2023-07-12] MEDS: MIDODRINE HCL 5MG TABLET PO SCH ×3 (09:00→16:44)
[2023-07-12] MEDS: GUAIFENESIN-DM 200MG-20MG/10ML UDC PO PRN (09:40)
[2023-07-12] MEDS: METOPROLOL TARTRATE 25MG TABLET PO SCH ×2 (09:41→21:50)
[2023-07-12] MEDS: ACETAMINOPHEN 325MG TABLET PO PRN (09:41)
[2023-07-12] MEDS: PANTOPRAZOLE SODIUM 40 MG/VIAL IV SCH (09:42)
[2023-07-12] MEDS: FUROSEMIDE 40MG TABLET PO SCH (09:43)
[2023-07-12] MEDS: NYSTATIN POWDER 15GM TOP SCH ×2 (09:44→16:45)
[2023-07-12] MEDS: INSULIN LISPRO 100 UNITS/ML SUBCUT SCH ×4 (09:45→21:52)
[2023-07-12] MEDS: CEFEPIME 2,000 MG in DEXT 5% WATER 100 ML IV SCH (10:03)
[2023-07-12 21:48] LABS: ANISOCYTOSIS 1+; PLATELET ESTIMATE NORMAL
[2023-07-12] MEDS: ATORVASTATIN CALCIUM 40MG TABLET PO SCH (21:51)
[2023-07-12] MEDS: LATANOPROST 0.005% OPHTH DROPS 2.5ML BOTHEYE SCH (21:53)
[2023-07-13] VITALS (11 sets, daily range): BP systolic 120–155; BP diastolic 60–85; PULSE 66–85; RESP 11–20; TEMP 97.2–98.6
[2023-07-13 03:53] LABS: HEMATOCRIT. 26.1 % (36.0-48.0); MEAN CORPUSCULAR HEMOGLOBIN 27.8 pg (28.0-32.0); MEAN CORPUSCULAR HGB CONC 30.6 g/dL (31.0-37.0); MEAN CORPUSCULAR VOLUME 90.9 fL (81.0-99.0); MEAN PLATELET VOLUME 8.6 fl (7.4-10.4); PLATELET 276 x1000/uL (130-400); RED BLOOD CELL COUNT 2.87 mill/uL (4.2-5.4); RED CELL DISTRIBUTION WIDTH 20.7 % (11.6-14.6); WHITE BLOOD COUNT 15.2 x1000/uL (4.5-11.0)
[2023-07-13 03:56] LABS: INR 1.2; PROTHROMBIN TIME 12.9 sec (9.6-11.0)
[2023-07-13 03:57] LABS: CALCIUM 7.6 mg/dL (8.7-10.4); CREATININE 1.4 mg/dL (0.6-1.0); DIFFERENTIAL COMMENT 1; POTASSIUM 4.1 mEq/L (3.5-5.1)
[2023-07-13 04:42] LABS: PLATELET ESTIMATE NORMAL
[2023-07-13] MEDS: METHYLPREDNISOLONE SOD SUCC 40MG/ML (ACT-O-VIAL) IV SCH ×2 (05:14→17:26)
[2023-07-13] MEDS: BLOOD SUGAR DIAGNOSTIC STRIP TEST SCH ×4 (07:42→20:07)
[2023-07-13] MEDS: INSULIN LISPRO 100 UNITS/ML SUBCUT SCH ×4 (08:00→20:07)
[2023-07-13] MEDS: MIDODRINE HCL 5MG TABLET PO SCH ×3 (09:00→17:00)
[2023-07-13] MEDS ORDERED: CEFAZOLIN 1000MG PREMIX 50 ML IV NR (09:00)
[2023-07-13] MEDS: FUROSEMIDE 40MG TABLET PO SCH (09:00)
[2023-07-13] MEDS: PANTOPRAZOLE SODIUM 40 MG/VIAL IV SCH (09:18)
[2023-07-13] MEDS: METOPROLOL TARTRATE 25MG TABLET PO SCH ×2 (09:19→20:06)
[2023-07-13] MEDS: NYSTATIN POWDER 15GM TOP SCH ×2 (09:37→17:26)
[2023-07-13] MEDS: SODIUM CHLORIDE 0.45% 1,000 ML IV SCH (09:52)
[2023-07-13] MEDS: CEFEPIME 2,000 MG in DEXT 5% WATER 100 ML IV SCH (11:00)
[2023-07-13] MEDS: GUAIFENESIN-DM 200MG-20MG/10ML UDC PO PRN (13:57)
[2023-07-13] MEDS: ACETAMINOPHEN 325MG TABLET PO PRN (13:57)
[2023-07-13] MEDS: LATANOPROST 0.005% OPHTH DROPS 2.5ML BOTHEYE SCH (20:06)
[2023-07-13] MEDS: ATORVASTATIN CALCIUM 40MG TABLET PO SCH (20:07)
[2023-07-14] VITALS (15 sets, daily range): BP systolic 115–148; BP diastolic 51–80; PULSE 72–109; RESP 13–25; TEMP 97–98.8
[2023-07-14] MEDS: METHYLPREDNISOLONE SOD SUCC 40MG/ML (ACT-O-VIAL) IV SCH ×2 (06:00→16:42)
[2023-07-14] MEDS: SODIUM CHLORIDE 0.45% 1,000 ML IV SCH (06:09)
[2023-07-14] MEDS: BLOOD SUGAR DIAGNOSTIC STRIP TEST SCH ×4 (07:30→21:00)
[2023-07-14] MEDS: INSULIN LISPRO 100 UNITS/ML SUBCUT SCH ×4 (08:00→21:00)
[2023-07-14 08:24] LABS: HEMATOCRIT. 27.6 % (36.0-48.0); HEMOGLOBIN. 8.6 g/dL (12.0-16.0); MEAN CORPUSCULAR HEMOGLOBIN 28.1 pg (28.0-32.0); MEAN CORPUSCULAR HGB CONC 31.3 g/dL (31.0-37.0); MEAN CORPUSCULAR VOLUME 89.8 fL (81.0-99.0); MEAN PLATELET VOLUME 9.2 fl (7.4-10.4); PLATELET 161 x1000/uL (130-400); RED BLOOD CELL COUNT 3.07 mill/uL (4.2-5.4); RED CELL DISTRIBUTION WIDTH 21.1 % (11.6-14.6); WHITE BLOOD COUNT 20.1 x1000/uL (4.5-11.0)
[2023-07-14 08:32] LABS: DIFFERENTIAL COMMENT 1
[2023-07-14 10:16] LABS: CALCIUM 7.6 mg/dL (8.7-10.4); CREATININE 1.1 mg/dL (0.6-1.0); POTASSIUM 4.2 mEq/L (3.5-5.1)
[2023-07-14] MEDS: NYSTATIN POWDER 15GM TOP SCH ×2 (10:16→16:42)
[2023-07-14] MEDS: METOPROLOL TARTRATE 25MG TABLET PO SCH ×2 (10:18→22:07)
[2023-07-14] MEDS: FUROSEMIDE 40MG TABLET PO SCH (10:18)
[2023-07-14] MEDS: CEFEPIME 2,000 MG in DEXT 5% WATER 100 ML IV SCH (10:23)
[2023-07-14] MEDS: PANTOPRAZOLE SODIUM 40 MG/VIAL IV SCH (10:23)
[2023-07-14] MEDS: MIDODRINE HCL 5MG TABLET PO SCH ×3 (10:23→16:18)
[2023-07-14] MEDS: ACETAMINOPHEN 325MG TABLET PO PRN ×2 (10:29→23:56)
[2023-07-14 15:31] LABS: ANISOCYTOSIS 3+; HYPOCHROMASIA 1+; PLATELET ESTIMATE NORMAL
[2023-07-14] MEDS: LATANOPROST 0.005% OPHTH DROPS 2.5ML BOTHEYE SCH (21:00)
[2023-07-14] MEDS: ATORVASTATIN CALCIUM 40MG TABLET PO SCH (22:07)
[2023-07-15] VITALS (10 sets, daily range): BP systolic 131–151; BP diastolic 63–88; PULSE 84–99; RESP 17–22; TEMP 97.6–98.6
[2023-07-15] MEDS: METHYLPREDNISOLONE SOD SUCC 40MG/ML (ACT-O-VIAL) IV SCH (05:16)
[2023-07-15] MEDS: INSULIN LISPRO 100 UNITS/ML SUBCUT SCH ×2 (05:47→13:00)
[2023-07-15] MEDS: BLOOD SUGAR DIAGNOSTIC STRIP TEST SCH ×3 (07:30→17:30)
[2023-07-15] MEDS: METOPROLOL TARTRATE 25MG TABLET PO SCH (08:38)
[2023-07-15] MEDS: MIDODRINE HCL 5MG TABLET PO SCH ×3 (08:38→17:00)
[2023-07-15] MEDS: PANTOPRAZOLE SODIUM 40 MG/VIAL IV SCH (08:39)
[2023-07-15] MEDS: ACETAMINOPHEN 325MG TABLET PO PRN (08:39)
[2023-07-15] MEDS ORDERED: FUROSEMIDE 40MG TABLET PO SCH (09:00)
[2023-07-15] MEDS: NYSTATIN POWDER 15GM TOP SCH ×2 (09:00→17:00)
[2023-07-15] MEDS ORDERED: CEFEPIME 2,000 MG in DEXT 5% WATER 100 ML IV SCH ×4 (10:00)
[2023-07-15 10:36] LABS: HEMATOCRIT. 26.1 % (36.0-48.0); HEMOGLOBIN. 8.2 g/dL (12.0-16.0); MEAN CORPUSCULAR HEMOGLOBIN 28.2 pg (28.0-32.0); MEAN CORPUSCULAR HGB CONC 31.3 g/dL (31.0-37.0); MEAN PLATELET VOLUME 8.9 fl (7.4-10.4); PLATELET 229 x1000/uL (130-400); RED CELL DISTRIBUTION WIDTH 21.8 % (11.6-14.6); WHITE BLOOD COUNT 24.4 x1000/uL (4.5-11.0)
[2023-07-15 10:37] LABS: CALCIUM 7.8 mg/dL (8.7-10.4); CREATININE 1.1 mg/dL (0.6-1.0); POTASSIUM 4.5 mEq/L (3.5-5.1)
[2023-07-15 10:42] LABS: DIFFERENTIAL COMMENT 1
[2023-07-15 15:44] LABS: ANISOCYTOSIS 3+; HYPOCHROMASIA 1+; OVALOCYTES 1+; PLATELET ESTIMATE NORMAL
== END 2023-07-15 21:00 | DRG 871 ==
LOC: ER 02:15 → EDBEDREQ 10:46 → EDBEDREQSVC 10:46 → EDBEDREQTM 10:46 → MICUSO 21:05 → 5EST 06-19 17:45
PROVIDERS: ADMIT Internal Medicine; ATTEND Internal Medicine
PROC: 4A00X4Z Measurement of Central Nervous Electrical Activity, External Approach (ICD-10-PCS; 2023-06-22)
PROC: 02HV33Z Insertion of Infusion Device into Superior Vena Cava, Percutaneous Approach (ICD-10-PCS; 2023-06-23)
PROC: B548ZZA Ultrasonography of Superior Vena Cava, Guidance (ICD-10-PCS; 2023-06-23)
PROC: B5181ZA Fluoroscopy of Superior Vena Cava using Low Osmolar Contrast, Guidance (ICD-10-PCS; 2023-06-23)
PROC: 30233N1 Transfusion of Nonautologous Red Blood Cells into Peripheral Vein, Percutaneous Approach (ICD-10-PCS; 2023-06-30)
PROC: 0DH63UZ Insertion of Feeding Device into Stomach, Percutaneous Approach (ICD-10-PCS; principal; 2023-07-13)
DX: A41.9 Sepsis, unspecified organism (principal); I26.93 Single subsegmental thrombotic pulmonary embolism without acute cor pulmonale; I50.43 Acute on chronic combined systolic (congestive) and diastolic (congestive) heart failure; I63.511 Cerebral infarction due to unspecified occlusion or stenosis of right middle cerebral artery; J18.9 Pneumonia, unspecified organism; J96.01 Acute respiratory failure with hypoxia; I47.10 Supraventricular tachycardia, unspecified; I48.92 Unspecified atrial flutter; N17.9 Acute kidney failure, unspecified; J44.0 Chronic obstructive pulmonary disease with (acute) lower respiratory infection; I42.8 Other cardiomyopathies; I13.0 Hypertensive heart and chronic kidney disease with heart failure and stage 1 through stage 4 chronic kidney disease, or unspecified chronic kidney disease; E46 Unspecified protein-calorie malnutrition; D64.9 Anemia, unspecified; Z20.822 Contact with and (suspected) exposure to COVID-19; E03.9 Hypothyroidism, unspecified; E83.42 Hypomagnesemia; E86.0 Dehydration; I25.10 Atherosclerotic heart disease of native coronary artery without angina pectoris; I48.0 Paroxysmal atrial fibrillation; R62.7 Adult failure to thrive; E66.9 Obesity, unspecified; E78.2 Mixed hyperlipidemia; E87.6 Hypokalemia; E11.22 Type 2 diabetes mellitus with diabetic chronic kidney disease; K21.9 Gastro-esophageal reflux disease without esophagitis; R13.12 Dysphagia, oropharyngeal phase; R74.01 Elevation of levels of liver transaminase levels; R53.81 Other malaise; N18.9 Chronic kidney disease, unspecified; Z68.39 Body mass index [BMI] 39.0-39.9, adult; Z95.828 Presence of other vascular implants and grafts; Z74.01 Bed confinement status; Z79.01 Long term (current) use of anticoagulants; Z79.899 Other long term (current) drug therapy; Z85.118 Personal history of other malignant neoplasm of bronchus and lung; Z88.8 Allergy status to other drugs, medicaments and biological substances
CPT/HCPCS: 36415; 36573; 36600; 70553; 71045; 71275; 80048; 80053; 80061; 80202; 81003; 82375; 82607; 82728; 82805; 82962; 83540; 83550; 83605; 83735; 83880; 84132; 84145; 84300; 84443; 84484; 85025; 85044; 85384; 86850; 86900; 86920; 87077; 87106; 87426; 92610; 93005; 93880; 95816; 97110; 97162; 97166; 97530; 99285; A6261; A9577; C1725; C1893; C9113; J0153; J0282; J0690; J0692; J1160; J1650; J1815; J1940; J2270; J2405; J2543; J2920; J3370; J3475; J3480; J3490; J7030; J7040; J7060; P9016; Q9967; A4315